=== PATIENT | female | born 1945 | race Caucasian/White ===

== ENCOUNTER 2017-07-18 03:09 | Inpatient (IN) | payer MEDICARE ==
[2017-07-18] VITALS (23 sets, daily range): BP systolic 125–222; BP diastolic 58–111; PULSE 57–73; RESP 12–16; TEMP 93.5–98.6; O2SAT 98–100
[~2017-07-18] VITALS: Ht 157.5 cm; Wt 40.3 kg
[2017-07-18] MEDS ORDERED: PROPOFOL 1000 MG/100 ML INJ 100 ML ONE (03:17)
[2017-07-18 04:11] LABS: AUTOMATED NEUTROPHIL # 6.7 TH/MM3 (1.8-7.7); BASOPHIL # 0.1 TH/MM3 (0-0.2); BASOPHIL % 1.3 % (0.0-2.0); EOSINOPHIL # 0.2 TH/MM3 (0-0.4); EOSINOPHIL % 2.1 % (0.0-4.0); HEMATOCRIT 29.6 % (35.0-46.0); LYMPH % 15.2 % (9.0-44.0); LYMPHOCYTE # 1.3 TH/MM3 (1.0-4.8); MEAN CELL VOLUME 92.2 FL (80.0-100.0); MEAN CORPUSCULAR HEMOGLOBIN 34.8 PG (27.0-34.0); NEUT % 75.4 % (16.0-70.0); PLATELET COUNT 314 TH/MM3 (150-450); RED BLOOD COUNT 3.22 MIL/MM3 (4.00-5.30); WHITE BLOOD COUNT 8.9 TH/MM3 (4.0-11.0)
[2017-07-18 04:20] LABS: APTT (PATIENT) 35.2 SEC (24.3-30.1); INTERNATIONAL NORMALIZED RATIO 1.7 RATIO; PROTHROMBIN TIME - PATIENT 19.4 SEC (9.8-11.6)
[2017-07-18] MEDS ORDERED: CEFEPIME INJ 2,000 MG in SODIUM CHLORIDE 0.9% INJ 100 ML IV ONE (04:45)
[2017-07-18] MEDS ORDERED: FUROSEMIDE 40 MG/4 ML VIAL IV PUSH ONE (04:45)
[2017-07-18] MEDS ORDERED: AZITHROMYCIN INJ 500 MG in SODIUM CHLOR 0.9% 250 ML INJ 250 ML IV ONE (04:45)
[2017-07-18 04:46] LABS: BLOOD GAS BASE EXCESS -8.5 mmol/L (-2-2); BLOOD GAS CARBOXYHEMOGLOBIN 0.8 % (0-4); BLOOD GAS HCO3 17 mmol/L (22-26); BLOOD GAS METHEMOGLOBIN 0.5 % (0-2); BLOOD GAS O2 HGB SATURATION 99 % (90-100); BLOOD GAS OXYGEN CONTENT 13.9 Vol % (12.0-20.0); BLOOD GAS PCO2 34 mmHg (38-42); BLOOD GAS PO2 385 mmHG (61-120); BLOOD GAS TOTAL HGB 9.3 G/DL (12.0-16.0); TEMP CORR TO 98.6
[2017-07-18 04:47] LABS: CRITICAL VALUE NO; OXYGEN DEVICE VENTILATOR; VENT SETTINGS PRVC
[2017-07-18 04:48] LABS: DRAW SITE RT RADIAL; FIO2 100 %; NUMBER OF ARTERIAL PUNCTURES 1; STAT YES; ULNAR PULSE PRESENT
--- NOTE | 2017-07-18 04:48 | PD ---
HPI Chief Complaint: Respiratory Distress Time Seen by Provider: 04:12 Travel History International Travel<30 days: No Contact w/Intl Traveler<30days: No Traveled to known affect area: No History of Present Illness HPI The patient is a unknown age elderly female who presents to the emergency department via EMS for shortness of breath. According EMS they received a call the patient was short of breath from her , they arrived the patient was 75% room air and was working to breathe. They stated they place the patient on oxygen which brought the patient up into the 80s, however, she started having increasing shortness of breath and the patient was subsequently intubated in the field by EMS. The patient was intubated using Ativan 4 mg intravenously and etomidate 14 mg intravenously. No further information is available from EMS , they did not bring her medication list and do not know the patient's past medical history. [facility] Past Medical History Medical History: Unable to Obtain Past Surgical History Surgical History: Unable to Obtain Social History Tobacco Use: No (unknown) Allergies-Medications (Allergen,Severity, Reaction): Coded Allergies: No Known Allergies (Unverified , 07/18/17) Reported Meds & Prescriptions Reported Meds & Active Scripts Active Reported Iron (Ferrous Sulfate) 18 Mg Tab 65 Mg PO DAILY Mirtazapine 30 Mg Tab 30 Mg PO HS Lopressor (Metoprolol Tartrate) 50 Mg Tab 50 Mg PO BID Lisinopril 5 Mg Tab 5 Mg PO DAILY Plaquenil (Hydroxychloroquine Sulfate) 200 Mg Tab 200 Mg PO DAILY Take with food Plavix (Clopidogrel Bisulfate) 75 Mg Tab 75 Mg PO DAILY Vitamin D3 (Cholecalciferol) 1,000 Unit Cap Unknown Dose PO DAILY Symbicort Inh (Budesonide/Formoterol Fumarate) 160-4.5 Mcg/Act Aero 1 Puff INH Q12HR Lipitor (Atorvastatin Calcium) 20 Mg Tab 20 Mg PO HS Coumadin (Warfarin) 5 Mg Tab 5 Mg PO DAILY Sertraline (Sertraline HCl) 50 Mg Tab 50 Mg PO DAILY Aspirin Children's (Aspirin) 81 Mg Chew 81 Mg PO DAILY Review of Systems ROS Limitations: Intubated Except as stated in HPI: all other systems reviewed are Neg (unable to obtain, intubated) Physical Exam Exam Limitations: Clinical Condition Narrative GENERAL: Approximately 70-80 year-old female who arrives intubated. SKIN: Focused skin assessment warm/dry. HEAD: Atraumatic. Normocephalic. EYES: Pupils equal and round. Pupils are 3 mm bilateral and reactive. ENT: No nasal bleeding or discharge. No visible teeth. Endotracheal tube in place. NECK: Trachea midline. No JVD. CARDIOVASCULAR: Regular rate and rhythm. No murmur appreciated. Heart rate in the 70s. RESPIRATORY: No accessory muscle use. Patient has bilateral breath sounds with Rales and a few scattered rhonchi via bag valve ventilation. GASTROINTESTINAL: Abdomen soft, small reducible umbilical hernia. MUSCULOSKELETAL: Scar over the left hip. Ulcer of the medial malleus of the right ankle. Abscess which is draining area of the medial aspect the proximal thigh. Ecchymosis noted over the left humerus. NEUROLOGICAL: GCS of 3, intubated. Back: Superficial sacral decubitus ulcer, stage I on the right buttock. PSYCHIATRIC: Unable to assess. Data Data Last Documented VS Vital Signs Date Time Temp Pulse Resp B/P (MAP) Pulse Ox O2 Delivery O2 Flow Rate FiO2 07/18/17 05:45 63 16 174/85 (114) 100 Ventilator 65 07/18/17 05:00 93.6 Orders Orders Propofol 1000 Mg/100 Ml Inj (Diprivan 10 (07/18/17 03:17) B-Type Natriuretic Peptide (07/18/17 03:30) Lactic Acid (07/18/17 03:30) Act Partial Throm Time (Ptt) (07/18/17 03:30) Prothrombin Time / Inr (Pt) (07/18/17 03:30) Creatine Kinase (Cpk) (07/18/17 03:30) Comprehensive Metabolic Panel (07/18/17 03:30) Troponin I (07/18/17 03:30) Complete Blood Count With Diff (07/18/17 03:30) Urinalysis - C+S If Indicated (07/18/17 03:30) Blood Culture (07/18/17 03:30) Blood Culture (07/18/17 03:30) Arterial Blood Gas (Abg) (07/18/17 03:47) Wound Culture And Gram Stain (07/18/17 04:12) Chest, Single Ap (07/18/17 ) Ct Brain W/O Iv Contrast(Rout) (07/18/17 ) Furosemide Inj (Lasix Inj) (07/18/17 04:45) Cefepime Inj (Maxipime Inj) (07/18/17 04:45) Azithromycin Inj (Zithromax Inj) (07/18/17 04:45) Urine Culture (07/18/17 03:30) Urinary Catheter Insert/Apply (07/18/17 04:59) Propofol 1000 Mg/100 Ml Inj (Diprivan 10 (07/18/17 05:00) ^ Infusion (07/18/17 04:59) RASS (07/18/17 04:59) Neurological Rass Scale RENETTA.Q2H (07/18/17 04:59) Admit Order (Ed Use Only) (07/18/17 05:55) Labs Laboratory Tests Test 07/18/17 03:30 07/18/17 03:47 07/18/17 05:25 White Blood Count 8.9 TH/MM3 Red Blood Count 3.22 MIL/MM3 Hemoglobin 11.2 GM/DL Hematocrit 29.6 % Mean Corpuscular Volume 92.2 FL Mean Corpuscular Hemoglobin 34.8 PG Mean Corpuscular Hemoglobin Concent 37.8 % Red Cell Distribution Width 15.0 % Platelet Count 314 TH/MM3 Mean Platelet Volume 7.4 FL Neutrophils (%) (Auto) 75.4 % Lymphocytes (%) (Auto) 15.2 % Monocytes (%) (Auto) 6.0 % Eosinophils (%) (Auto) 2.1 % Basophils (%) (Auto) 1.3 % Neutrophils # (Auto) 6.7 TH/MM3 Lymphocytes # (Auto) 1.3 TH/MM3 Monocytes # (Auto) 0.5 TH/MM3 Eosinophils # (Auto) 0.2 TH/MM3 Basophils # (Auto) 0.1 TH/MM3 CBC Comment AUTO DIFF Differential Comment AUTO DIFF CONFIRMED Rouleau PRESENT Prothrombin Time 19.4 SEC Prothromb Time International Ratio 1.7 RATIO Activated Partial Thromboplast Time 35.2 SEC Urine Color LIGHT-YELLOW Urine Turbidity CLEAR Urine pH 7.0 Urine Specific [place] 1.007 Urine Protein 100 mg/dL Urine Glucose (UA) NEG mg/dL Urine Ketones NEG mg/dL Urine Occult Blood SMALL Urine Nitrite NEG Urine Bilirubin NEG Urine Urobilinogen LESS THAN 2.0 MG/DL Urine Leukocyte Esterase SMALL Urine RBC 6 /hpf Urine WBC 9 /hpf Urine WBC Clumps RARE Urine Squamous Epithelial Cells <1 /hpf Urine Bacteria OCC /hpf Microscopic Urinalysis Comment CULTURE INDICATED Lactic Acid Level 1.7 mmol/L B-Type Natriuretic Peptide 1097 PG/ML Blood Gas Puncture Site RT RADIAL Blood Gas Patient Temperature 98.6 Blood Gas HCO3 17 mmol/L Blood Gas Base Excess -8.5 mmol/L Blood Gas Oxygen Saturation 99 % Arterial Blood pH 7.31 Arterial Blood Partial Pressure CO2 34 mmHg Arterial Blood Partial Pressure O2 385 mmHG Arterial Blood Oxygen Content 13.9 Vol % Arterial Blood Carboxyhemoglobin 0.8 % Arterial Blood Methemoglobin 0.5 % Blood Gas Hemoglobin 9.3 G/DL Oxygen Delivery Device VENTILATOR Blood Gas Ventilator Setting PRVC Blood Gas Inspired Oxygen 100 % Blood Urea Nitrogen 37 MG/DL Creatinine 1.38 MG/DL Random Glucose 94 MG/DL Total Protein 6.0 GM/DL Albumin 2.6 GM/DL Calcium Level 8.0 MG/DL Alkaline Phosphatase 136 U/L Aspartate Amino Transf (AST/SGOT) 34 U/L Alanine Aminotransferase (ALT/SGPT) 27 U/L Total Bilirubin 0.4 MG/DL Sodium Level 130 MEQ/L Potassium Level 4.1 MEQ/L Chloride Level 100 MEQ/L Carbon Dioxide Level 17.2 MEQ/L Anion Gap 13 MEQ/L Estimat Glomerular Filtration Rate 33 ML/MIN Total Creatine Kinase 49 U/L Troponin I 0.03 NG/ML [facility] Medical Decision Making Medical Screen Exam Complete: Yes Emergency Medical Condition: Yes Medical Record Reviewed: Yes Interpretation(s) Chest x-ray reveals cardiomegaly. Bilateral pulmonary infiltrates. CT of the brain reveals normal examination Last Impressions Head CT 07/18/17 0000 Signed Impressions: Service Date/Time: Tuesday, July 18, 2017 04:29 - CONCLUSION: Normal examination. Tha Shaw Jr., MD Chest X-Ray 07/18/17 0000 Signed Impressions: Service Date/Time: Tuesday, July 18, 2017 04:27 - CONCLUSION: 1. Cardiomegaly. 2. Bilateral pulmonary infiltrates. Tha Shaw Jr., MD Laboratory Tests Test 07/18/17 03:30 07/18/17 03:47 07/18/17 05:25 White Blood Count 8.9 TH/MM3 Red Blood Count 3.22 MIL/MM3 Hemoglobin 11.2 GM/DL Hematocrit 29.6 % Mean Corpuscular Volume 92.2 FL Mean Corpuscular Hemoglobin 34.8 PG Mean Corpuscular Hemoglobin Concent 37.8 % Red Cell Distribution Width 15.0 % Platelet Count 314 TH/MM3 Mean Platelet Volume 7.4 FL Neutrophils (%) (Auto) 75.4 % Lymphocytes (%) (Auto) 15.2 % Monocytes (%) (Auto) 6.0 % Eosinophils (%) (Auto) 2.1 % Basophils (%) (Auto) 1.3 % Neutrophils # (Auto) 6.7 TH/MM3 Lymphocytes # (Auto) 1.3 TH/MM3 Monocytes # (Auto) 0.5 TH/MM3 Eosinophils # (Auto) 0.2 TH/MM3 Basophils # (Auto) 0.1 TH/MM3 CBC Comment AUTO DIFF Differential Comment AUTO DIFF CONFIRMED Rouleau PRESENT Prothrombin Time 19.4 SEC Prothromb Time International Ratio 1.7 RATIO Activated Partial Thromboplast Time 35.2 SEC Urine Color LIGHT-YELLOW Urine Turbidity CLEAR Urine pH 7.0 Urine Specific [place] 1.007 Urine Protein 100 mg/dL Urine Glucose (UA) NEG mg/dL Urine Ketones NEG mg/dL Urine Occult Blood SMALL Urine Nitrite NEG Urine Bilirubin NEG Urine Urobilinogen LESS THAN 2.0 MG/DL Urine Leukocyte Esterase SMALL Urine RBC 6 /hpf Urine WBC 9 /hpf Urine WBC Clumps RARE Urine Squamous Epithelial Cells <1 /hpf Urine Bacteria OCC /hpf Microscopic Urinalysis Comment CULTURE INDICATED Lactic Acid Level 1.7 mmol/L B-Type Natriuretic Peptide 1097 PG/ML Blood Gas Puncture Site RT RADIAL Blood Gas Patient Temperature 98.6 Blood Gas HCO3 17 mmol/L Blood Gas Base Excess -8.5 mmol/L Blood Gas Oxygen Saturation 99 % Arterial Blood pH 7.31 Arterial Blood Partial Pressure CO2 34 mmHg Arterial Blood Partial Pressure O2 385 mmHG Arterial Blood Oxygen Content 13.9 Vol % Arterial Blood Carboxyhemoglobin 0.8 % Arterial Blood Methemoglobin 0.5 % Blood Gas Hemoglobin 9.3 G/DL Oxygen Delivery Device VENTILATOR Blood Gas Ventilator Setting PRVC Blood Gas Inspired Oxygen 100 % Blood Urea Nitrogen 37 MG/DL Creatinine 1.38 MG/DL Random Glucose 94 MG/DL Total Protein 6.0 GM/DL Albumin 2.6 GM/DL Calcium Level 8.0 MG/DL Alkaline Phosphatase 136 U/L Aspartate Amino Transf (AST/SGOT) 34 U/L Alanine Aminotransferase (ALT/SGPT) 27 U/L Total Bilirubin 0.4 MG/DL Sodium Level 130 MEQ/L Potassium Level 4.1 MEQ/L Chloride Level 100 MEQ/L Carbon Dioxide Level 17.2 MEQ/L Anion Gap 13 MEQ/L Estimat Glomerular Filtration Rate 33 ML/MIN Total Creatine Kinase 49 U/L Troponin I 0.03 NG/ML Differential Diagnosis Differential diagnosis includes congestive heart failure, flash pulmonary edema , pneumonia, pulmonary embolism, acute coronary syndrome, sepsis. Narrative Course The patient was intubated prior to arrival. Upon arrival the patient did have bilateral breath sounds via bag valve ventilation with Rales and rhonchi. The patient was immediately placed on propofol drip. IV was established, labs are drawn and sent, the patient was placed on cardiac telemetry monitoring and continuous pulse ox imaging monitoring. CT the brain was obtained. Chest x- ray was obtained. Chest x-ray reveals pulmonary edema versus bilateral infiltrates, therefore, the patient received Lasix 40 mg intravenously, cefepime 2 g intravenously, Zithromax 500 mg intravenously. Fischer catheter was placed. The patient was noted to be hypothermic with a temperature 90.5, therefore, a warmer was placed on the patient. CT the brain was obtained, was negative. The patient will be admitted to the intensive care unit. A call was placed to the maternal child nurse. Critical Care Narrative Aggregate critical care time was 40 minutes. Time to perform other separately billable procedures was not included in the critical care time. My time did not include minutes spent treating any other patients simultaneously or on activities that did not directly contribute to the patient's treatment. The services I provided to this patient were to treat and/or prevent clinically significant deterioration that could result in: Anoxia, hypoxia, aspiration, arrhythmia, sepsis, . I provided critical care services requiring my management, as noted below: Chart data review, documentation time, medication orders and management, vital sign assessments/reviewing monitor data, ordering and reviewing lab tests, ordering and interpreting/reviewing x-rays and diagnostic studies, care of the patient and discussion of the patient with the admitting physicians. Sepsis Criteria SIRS Criteria (2 or more): Temp > 100.9 or < 96.8 Physician Communication Physician Communication The on-call maternal child nurse was paged for admission. Diagnosis Primary Impression: Respiratory distress Additional Impression: Congestive heart failure Qualified Codes: I50.9 - Heart failure, unspecified Admitting Information Admitting Physician Requests: Admit Condition: Critical Mihai Falcon MD Jul 18, 2017 04:48
[2017-07-18 04:57] LABS: BACTERIA, URINE OCC /hpf; BLOOD, URINE SMALL (NEG); COMMENT (UR) CULTURE INDICATED; CULTURE IF INDICATED CULTURE INDICATED; GLUCOSE,URINE NEG (NEG); KETONE, URINE NEG (NEG); NITRITE,URINE NEG (NEG); SQUAMOUS EPITHELIAL CELL URINE <1 /hpf (0-5); URINE COLOR LIGHT-YELLOW (YELLW/STRAW)
--- NOTE | 2017-07-18 04:59 | RADRPT ---
EXAM DATE/TIME: 07/18/2017 04:29 [facility] COMPARISON: No previous studies available for comparison. INDICATIONS : Altered mental status. RADIATION DOSE: 29.67 CTDIvol (mGy) MEDICAL HISTORY : Non-responsive. SURGICAL HISTORY : Non-responsive. ENCOUNTER: Initial ACUITY: 1 day PAIN SCALE: Non-responsive LOCATION: cranial TECHNIQUE: Multiple contiguous axial images were obtained of the head. Using automated exposure control and adj ustment of the mA and/or kV according to patient size, radiation dose was kept as low as reasonably a chievable to obtain optimal diagnostic quality images. DICOM format image data is available electro nically for review and comparison. FINDINGS: CEREBRUM: The ventricles are normal for age. No evidence of midline shift, mass lesion, hemorrhage or acute in farction. No extra-axial fluid collections are seen. POSTERIOR FOSSA: The cerebellum and brainstem are intact. The 4th ventricle is midline. The cerebellopontine angle i s unremarkable. EXTRACRANIAL: The visualized portion of the orbits is intact. SKULL: The calvaria is intact. No evidence of skull fracture. CONCLUSION: Normal examination. Tha Shaw Jr., MD on July 18, 2017 at 4:57 Board Certified Radiologist. This report was verified electronically.
--- NOTE | 2017-07-18 05:00 | RADRPT ---
EXAM DATE/TIME: 07/18/2017 04:27 [facility] COMPARISON: No previous studies available for comparison. INDICATIONS : Pt found unresponsive MEDICAL HISTORY : Unobtainable SURGICAL HISTORY : Unobtainable ENCOUNTER: Initial ACUITY: 1 day PAIN SCORE: Non-responsive. LOCATION: Bilateral chest FINDINGS: A single portable frontal view of the chest shows an endotracheal tube tip 4 cm proximal to santiago. T ip of the nasogastric tube in the region of the body of the stomach. Bilateral pulmonary infiltrates most pronounced involving the right upper lobe. Lungs are hyperaerated. No effusions. Mild cardiomega ly. Bony structures are unremarkable. CONCLUSION: 1. Cardiomegaly. 2. Bilateral pulmonary infiltrates. Tha Shaw Jr., MD on July 18, 2017 at 4:58 Board Certified Radiologist. This report was verified electronically.
[2017-07-18 05:01] LABS: HEMO FLAGS AUTO DIFF; MEAN CORPUSCULAR HGB CONC 37.8 % (32.0-36.0)
[2017-07-18] MEDS: PROPOFOL 1000 MG/100 ML INJ 100 ML IV PRN ×3 (05:38→12:21)
[2017-07-18 05:45] LABS: ROULEAUX PRESENT (NORMAL); SCAN/DIFF AUTO DIFF CONFIRMED
[2017-07-18] MEDS ORDERED: VITA100036 PO (05:47)
[2017-07-18] MEDS ORDERED: PLAV75TA29 PO (05:47)
[2017-07-18] MEDS ORDERED: LISI-519 PO (05:47)
[2017-07-18] MEDS ORDERED: MIRT30TA PO (05:47)
[2017-07-18] MEDS ORDERED: COUM5TAB PO (05:47)
[2017-07-18] MEDS ORDERED: ASPI81CH7 PO (05:47)
[2017-07-18] MEDS ORDERED: SERT-132 PO (05:47)
[2017-07-18] MEDS ORDERED: METO-309 PO (05:47)
[2017-07-18] MEDS ORDERED: SYMB160A INH (05:47)
[2017-07-18] MEDS ORDERED: LIPI20TA PO (05:47)
[2017-07-18] MEDS ORDERED: IRON18TA PO (05:47)
[2017-07-18] MEDS ORDERED: PLAQ200T PO (05:47)
[2017-07-18 06:33] LABS: ALT (GPT) 27 U/L (10-53)
[2017-07-18 06:37] LABS: ALKALINE PHOSPHATASE 136 U/L (45-117); TOTAL BILIRUBIN ADULT 0.4 MG/DL (0.2-1.0)
[2017-07-18 06:41] LABS: ANION GAP 13 MEQ/L (5-15); AST (GOT) 34 U/L (15-37); BICARBONATE 17.2 MEQ/L (21.0-32.0); BLOOD UREA NITROGEN 37 MG/DL (7-18); CHLORIDE 100 MEQ/L (98-107); GLOMERULAR FILTRATION RATE 33 ML/MIN (>89); POTASSIUM 4.1 MEQ/L (3.5-5.1); SODIUM (NA) 130 MEQ/L (136-145)
[2017-07-18 06:46] LABS: CREATINE KINASE 49 U/L (26-192)
[2017-07-18] MEDS ORDERED: ONDANSETRON HCL 4 MG/2 ML VIAL IV PUSH PRN (07:00)
[2017-07-18] MEDS ORDERED: CHLORHEXIDINE GLUCONATE 2 % 1 PACK (2 CLOTHS) TOP PRN (07:00)
[2017-07-18] MEDS ORDERED: SENNOSIDES 8.6 MG TAB PO PRN (07:00)
[2017-07-18] MEDS ORDERED: RESP: ALBUTEROL 2.5 MG/3 ML NEB (PRN) INH (07:00)
[2017-07-18] MEDS ORDERED: MAGNESIUM HYDROXIDE SUSP 30 ML CUP PO PRN (07:00)
[2017-07-18] MEDS ORDERED: fentaNYL DRIP 250 ML IV PRN (07:00)
[2017-07-18] MEDS ORDERED: AZITHROMYCIN INJ 500 MG in SODIUM CHLOR 0.9% 250 ML INJ 250 ML IV SCH (07:00)
[2017-07-18] MEDS ORDERED: HEPARIN-D5W 25,000 U/250 ML 250 ML IV ONE (07:00)
[2017-07-18] MEDS ORDERED: CEFEPIME INJ 2,000 MG in SODIUM CHLORIDE 0.9% INJ 100 ML IV SCH (07:00)
[2017-07-18] MEDS ORDERED: LACTULOSE SYRUP 20 GM/30 ML CUP PO PRN (07:00)
[2017-07-18] MEDS ORDERED: GLUCAGON 1 MG/ML VIAL OTHER PRN (07:00)
[2017-07-18] MEDS ORDERED: INFO FOR PHARMACY/READ COMMENT ONE (07:00)
[2017-07-18] MEDS ORDERED: BISACODYL 10 MG SUPP RECTAL PRN (07:00)
[2017-07-18] MEDS ORDERED: MISCELLANEOUS NURSING INFORMATION XX SCH (07:00)
[2017-07-18] MEDS ORDERED: PROPOFOL 1000 MG/100 ML INJ 100 ML IV PRN (07:00)
[2017-07-18] MEDS ORDERED: DEXTROSE 50% IN WATER 50 ML VIAL(D50) IV PUSH PRN (07:00)
[2017-07-18] MEDS ORDERED: Vancomycin Consult Pharmacy 1 EA OTHER SCH (08:00)
[2017-07-18 08:16] LABS: AMYLASE 687 U/L (25-115)
[2017-07-18] MEDS: RESP: ALBUTEROL 2.5 MG/IPRATROPIUM 0.5 MG NEB (SCH) INH ×5 (08:16→23:49)
[2017-07-18] MEDS: RESP: BUDESONIDE 0.5 MG/2 ML NEB NEB SCH ×2 (08:16→20:41)
--- NOTE | 2017-07-18 08:17 | HHI.HP ---
[facility] Service Critical Care Medicine Primary Care Physician Unknown Admission Diagnosis respiratory distress, congestive heart failure, pneumonia Diagnosis: (1) Acute hypoxemic respiratory failure Diagnosis: Principal (2) Chronic anticoagulation Diagnosis: Secondary (3) Hyponatremia Diagnosis: Principal (4) Normocytic anemia Diagnosis: Principal (5) Wounds, multiple open, lower extremity Diagnosis: Principal (6) COPD (chronic obstructive pulmonary disease) Diagnosis: Principal (7) Pulmonary hypertension due to COPD Diagnosis: Principal (8) Coronary artery disease Diagnosis: Principal (9) Depression Diagnosis: Principal (10) Dyslipidemia Diagnosis: Secondary (11) Hypertension Diagnosis: Principal (12) Lupus Diagnosis: Principal (13) Lower leg DVT (deep venous thromboembolism), chronic Diagnosis: Principal (14) Nephrolithiasis Diagnosis: Secondary (15) Peripheral arterial occlusive disease Diagnosis: Secondary (16) Rheumatoid arthritis Diagnosis: Secondary (17) Hypothermia Diagnosis: Principal Chief Complaint: Awoke at 3 AM short of breath currently orotracheally intubated Travel History International Travel<30 Days: No Contact w/Intl Traveler <30 Da: No Traveled to Known Affected Are: No History of Present Illness This is a 72-year-old female. Name is Raúl Aguirre. Date of admission 07/18/2017. Past medical history includes coronary disease status post stent to the RCA 03/[address] Monique, chronic diastolic heart failure, pulmonary hypertension likely type III, ongoing tobaccoism with COPD, history of lower extremity DVTs, peripheral arterial disease status post stent to the iliac, nephrolithiasis, lupus, depression, chronic warfarin use rheumatoid arthritis, hypertension and dyslipidemia. She presents to [facility] with acute onset at 3 AM of shortness of breath. She had been "feeling tired" for the past several days. denies patient had any anginal type pain, shortness of breath, orthopnea or claudication. Upon EMS arrival, patient was emergently orally intubated using 7.5 ET tube. Of note, patient has chronic wounds to her right ankle retained hardware 15 years ago and a chronic wound on her right thigh from a dermatologic biopsy by organizational development specialist in [place] first [facility]. This was drained by ED physician and has been sent for cultures. No signs of necrotizing fasciitis or spreading erythema at this time Patient was noted be quite hypothermic on admission temperature 90.5. Warming device placed. Chest x-ray admission revealed bilateral infiltrates versus pulmonary edema. Patient received 40 mg IV furosemide and was given 2000 mg cefepime and 500 mg azithromycin along with bronchodilator therapy. CT brain revealed no acute intracranial findings. EEG has normalized. She is currently seen somewhat hypertensive in room E 33. She is arousable on the ventilator but currently not falling commands on a propofol drip. Review of Systems ROS Limitations: Intubated Past Family Social History Allergies: Coded Allergies: No Known Allergies (Unverified , 07/18/17) Past Medical History Pulmonary hypertension ? Type III Coronary artery disease Past Surgical History Right ankle Stent. presents car that states transhepatic biliary stent and iliac stent. RCA stent IVC filter Reported Medications Hydroxychloroquine 200 mg daily Nicotine patch 14 mg daily Warfarin 5 mg by mouth daily Clopidogrel 75 mg daily Aspirin 81 mg by mouth daily Atorvastatin 20 milligrams by mouth daily Metoprolol 50 mg by mouth twice a day Amlodipine 5 mg by mouth daily Lisinopril 5 mg by mouth daily Mirtazapine 30 mg at night Sertraline 50 mg by mouth daily Budesonide/formoterol 160/4.5 one puff twice a day Cholecalciferol 1000 units daily Active Ordered Medications Reviewed in EMR Family History Mother with heart disease. Father with cancer unknown type. Social History States she recently quit tobacco. 50 year pack history. Drinks 1 beer daily. No IV drug use or illicit drug use Physical Exam Vital Signs Vital Signs Date Time Temp Pulse Resp B/P (MAP) Pulse Ox O2 Delivery O2 Flow Rate FiO2 07/18/17 06:00 93.9 66 16 179/93 (121) 100 Ventilator 65 07/18/17 05:45 63 16 174/85 (114) 100 Ventilator 65 07/18/17 05:25 66 16 160/85 (110) 100 Ventilator 65 07/18/17 05:15 67 16 165/84 (111) 100 Ventilator 65 07/18/17 05:00 93.6 67 16 178/87 (117) 100 Ventilator 65 07/18/17 04:50 93.6 67 16 178/87 (117) 100 Ventilator 100 07/18/17 04:35 67 16 125/99 (108) 100 Ventilator 100 07/18/17 04:20 100 100 07/18/17 04:19 93.5 73 16 222/111 (148) 100 07/18/17 04:15 68 16 207/103 (137) 100 Ventilator 100 07/18/17 04:00 100 60 07/18/17 04:00 68 16 197/97 (130) 100 Ventilator 100 07/18/17 03:15 100 Ventilator 100 07/18/17 03:10 100 07/18/17 03:08 100 100 Physical Exam GENERAL: 72 year female, critically ill currently resting in bed in no acute distress SKIN: Warm and dry. Open sore 2 x 2 cm right medial aspect of ankle with minimal erythema. Pustule to the anterior aspect of the right medial thigh status post drainage by ED physician. No signs of streaking erythema. HEAD: Atraumatic. Normocephalic. EYES: Pupils equal and round around 3 mm bilaterally and reactive. No scleral icterus. No injection or drainage. ENT: No nasal bleeding or discharge. Mucous membranes pink and moist. Orotracheally intubated NECK: Trachea midline. No JVD. CARDIOVASCULAR: Regular rate and rhythm. S1, S2. No S4. Without murmur RESPIRATORY: Coarse crackles appreciated throughout all lung mendoza anterior- posterior. Positive end expiratory wheeze. Breath sounds equal bilaterally. GASTROINTESTINAL: Abdomen soft, non-tender, nondistended. Active bowel sounds are appreciated MUSCULOSKELETAL: Extremities without disc and peripheral edema. No obvious deformities. NEUROLOGICAL: Currently on sedation on the ventilator. Arousable. Does not follow commands. Withdraws to pain. Positive gag. Positive corneal reflex. Laboratory Laboratory Tests Test 07/18/17 03:30 07/18/17 03:47 07/18/17 05:25 White Blood Count 8.9 Red Blood Count 3.22 Hemoglobin 11.2 Hematocrit 29.6 Mean Corpuscular Volume 92.2 Mean Corpuscular Hemoglobin 34.8 Mean Corpuscular Hemoglobin Concent 37.8 Red Cell Distribution Width 15.0 Platelet Count 314 Mean Platelet Volume 7.4 Neutrophils (%) (Auto) 75.4 Lymphocytes (%) (Auto) 15.2 Monocytes (%) (Auto) 6.0 Eosinophils (%) (Auto) 2.1 Basophils (%) (Auto) 1.3 Neutrophils # (Auto) 6.7 Lymphocytes # (Auto) 1.3 Monocytes # (Auto) 0.5 Eosinophils # (Auto) 0.2 Basophils # (Auto) 0.1 CBC Comment AUTO DIFF Differential Comment AUTO DIFF CONFIRMED Rouleau PRESENT Prothrombin Time 19.4 Prothromb Time International Ratio 1.7 Activated Partial Thromboplast Time 35.2 Urine Color LIGHT-YELLOW Urine Turbidity CLEAR Urine pH 7.0 Urine Specific Walker 1.007 Urine Protein 100 Urine Glucose (UA) NEG Urine Ketones NEG Urine Occult Blood SMALL Urine Nitrite NEG Urine Bilirubin NEG Urine Urobilinogen LESS THAN 2.0 Urine Leukocyte Esterase SMALL Urine RBC 6 Urine WBC 9 Urine WBC Clumps RARE Urine Squamous Epithelial Cells <1 Urine Bacteria OCC Microscopic Urinalysis Comment CULTURE INDICATED Lactic Acid Level 1.7 B-Type Natriuretic Peptide 1097 Blood Gas Puncture Site RT RADIAL Blood Gas Patient Temperature 98.6 Blood Gas HCO3 17 Blood Gas Base Excess -8.5 Blood Gas Oxygen Saturation 99 Arterial Blood pH 7.31 Arterial Blood Partial Pressure CO2 34 Arterial Blood Partial Pressure O2 385 Arterial Blood Oxygen Content 13.9 Arterial Blood Carboxyhemoglobin 0.8 Arterial Blood Methemoglobin 0.5 Blood Gas Hemoglobin 9.3 Oxygen Delivery Device VENTILATOR Blood Gas Ventilator Setting PRVC Blood Gas Inspired Oxygen 100 Blood Urea Nitrogen 37 Creatinine 1.38 Random Glucose 94 Total Protein 6.0 Albumin 2.6 Calcium Level 8.0 Alkaline Phosphatase 136 Aspartate Amino Transf (AST/SGOT) 34 Alanine Aminotransferase (ALT/SGPT) 27 Total Bilirubin 0.4 Sodium Level 130 Potassium Level 4.1 Chloride Level 100 Carbon Dioxide Level 17.2 Anion Gap 13 Estimat Glomerular Filtration Rate 33 Total Creatine Kinase 49 Troponin I 0.03 Date/Time Source Procedure Growth Status 07/18/17 03:30 Blood Peripheral Aerobic Blood Culture Pending Received 07/18/17 03:30 Blood Peripheral Anaerobic Blood Culture Pending Received 07/18/17 03:30 Urine Clean Catch Urine Culture Pending Received 07/18/17 03:30 Wound Leg Gram Stain Pending Received 07/18/17 03:30 Wound Leg Wound Culture Pending Received Result Diagram: 07/18/17 0330 07/18/17 0525 Imaging Chest x-ray - bilateral interstitial infiltrates versus edema. ET tube about [address] brain - no acute intracranial findings Caprini VTE Risk Assessment Caprini VTE Risk Assessment: Mod/High Risk (score >= 2) Caprini Risk Assessment Model Point Value = 1 Point Value = 2 Point Value = 3 Point Value = 5 Age 41-60 Minor surgery BMI > 25 kg/m2 Swollen legs Varicose veins or History of unexplained or recurrent spontaneous Oral contraceptives or hormone replacement Sepsis (< 1 month) Serious lung disease, including pneumonia (< 1 month) Abnormal pulmonary function Acute myocardial infarction Congestive heart failure (< 1 month) History of inflammatory bowel disease Medical patient at bed rest Age 61-74 Arthroscopic surgery Major open surgery (> 45 min) Laparoscopic surgery (> 45 min) Malignancy Confined to bed (> 72 hours) Immobilizing plaster cast Central venous access Age >= 75 History of VTE Family history of VTE Factor V Leiden Prothrombin [id number] Lupus anticoagulant Anticardiolipin antibodies Elevated serum homocysteine Heparin-induced thrombocytopenia Other congenital or acquired thrombophilia Stroke (< 1 month) Elective arthroplasty Hip, pelvis, or leg fracture Acute spinal cord injury (< 1 month) Prophylaxis Regimen Total Risk Factor Score Risk Level Prophylaxis Regimen 0-1 Low Early ambulation 2 Moderate Order ONE of the following: *Sequential Compression Device (SCD) *Heparin 5000 units SQ BID 3-4 Higher Order ONE of the following medications: *Heparin 5000 units SQ TID *Enoxaparin/Lovenox 40 mg SQ daily (WT < 150 kg, CrCl > 30 mL/min) *Enoxaparin/Lovenox 30 mg SQ daily (WT < 150 kg, CrCl > 10-29 mL/min) *Enoxaparin/Lovenox 30 mg SQ BID (WT < 150 kg, CrCl > 30 mL/min) AND/OR *Sequential Compression Device (SCD) 5 or more Highest Order ONE of the following medications: *Heparin 5000 units SQ TID (Preferred with Epidurals) *Enoxaparin/Lovenox 40 mg SQ daily (WT < 150 kg, CrCl > 30 mL/min) *Enoxaparin/Lovenox 30 mg SQ daily (WT < 150 kg, CrCl > 10-29 mL/min) *Enoxaparin/Lovenox 30 mg SQ BID (WT < 150 kg, CrCl > 30 mL/min) AND *Sequential Compression Device (SCD) Assessment and Plan Assessment and Plan Neuro/Psych: History depression Acute delirium/altered mental status likely secondary to hypoxia Patient is currently on propofol/fentanyl drips for sedation/analgesia while intubated Goal of RA SS -2 Daily sedation vacation Acetaminophen 650 mg every 6 hours when necessary for fever CT brain 07/18 revealed no acute intracranial findings Resume sertraline 50 mg daily and mirtazapine 30 mg at night for depression CV: Coronary artery disease status post stent RCA 03/27 Dr. Monique Peripheral arterial disease status post lower extremity stenting Hypertension Dyslipidemia Pulmonary hypertension likely type III Hypothermia EKG and admission revealed normal sinus rhythm 80. IVCD with a QRS [address] elevation. Troponin 0.03. 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 No regional wall motion abnormality Resume metoprolol 50 mg twice a day for hypertension Holding amlodipine 5 mill grams daily and lisinopril 5 mill grams daily. Resume when clinically indicated Resume atorvastatin 20 no grams daily for dyslipidemia Resuming aspirin 81 mg daily and clopidogrel 75 mg daily for stent See ID, TSH, Cortisol for hypothermia w/u Resp: Acute hypoxic respiratory failure 50 year tobacco history PRVC /10/15/49 Ventilator bundle Albuterol/ipratropium aerosols every 4 hours with albuterol aerosols every 2 hours. Dyspnea Budesonide aerosols 0.5/2 1 inhalation twice a day Spontaneous breathing trials daily GI: Patient is currently nothing by mouth NGT to LIWS Lansoprazole for GI prophylaxis Docusate sodium/senna 1 tablet twice a day for bowel regimen : Fischer catheter has been placed for accurate I's and O's in a critically ill patient receiving diuretics Rheum/Endo: History of RA Lupus? Resume hydroxychloroquine 200 mg daily for her underlying rheumatologic disorder Currently on sliding scale insulin with Novulin R moderate protocol with Accu- Cheks every 6 hours to maintain euglycemia TSH pending Renal: Acute kidney injury History of nephrolithiasis Creatinine currently 1.3. Monitor urine output Accurate I's and O's Avoid nephrotoxic drugs Recheck BMP in a.m. Heme: Normocytic anemia Chronic warfarin use History of DVTs bilateral lower extremities Resume warfarin at 5 mill grams daily. While subtherapeutic initiate heparin drip until INR greater than 2.0 Resume aspirin/clopidogrel Daily CBC/INRs ID: UTI Receive 1 dose of cefepime/azithromycin in ED. Noted allergy to cephalosporins and previous records We'll start on levofloxacin, vancomycin, aztreonam. Blood cultures 2, sputum, UA, urine Legionella and pneumococcal antigens and influenza all pending Follow-up on wound culture to right thigh. MSK: Lower extremity wound ulcers/chronic Right thigh abscess was drained by ED. Benign-appearing currently. Wound care evaluate and treat FEN: Hyponatremia Replace electrolytes as clinically indicated. Magnesium and phosphorus currently pending Recheck BMP in a.m. Access - Utilize peripheral IV. Central line if indicated Prophylaxis - GI - lansoprazole - DVT - heparin drip/warfarin until INR greater than 2.0 provide DVT prophylaxis Critical Care: The total critical care time was 40 minutes. Time to perform other separately billable procedures was not included in the critical care time. Code Status Full code Discussed Condition With , who is hard of hearing and requested medications be reviewed for possible parring down and daughter. Dr. Falcon/ed physician. Care plan discussed and all questions answered. Problem Qualifiers (1) Wounds, multiple open, lower extremity: Qualified Codes: S81.801D - Unspecified open wound, right lower leg, subsequent encounter (2) COPD (chronic obstructive pulmonary disease): Qualified Codes: J44.9 - Chronic obstructive pulmonary disease, unspecified (3) Coronary artery disease: Qualified Codes: I25.10 - Atherosclerotic heart disease of [place] coronary artery without angina pectoris (4) Depression: Qualified Codes: F32.9 - Major depressive disorder, single episode, unspecified (5) Hypertension: Qualified Codes: I10 - Essential (primary) hypertension (6) Lupus: Qualified Codes: L93.0 - Discoid lupus erythematosus (7) Lower leg DVT (deep venous thromboembolism), chronic: Qualified Codes: I82.5Z9 - Chronic embolism and thrombosis of unspecified deep veins of unspecified distal lower extremity (8) Hypothermia: Qualified Codes: T68.XXXA - Hypothermia, initial encounter Layton Blunt MD Jul 18, 2017 07:24
[2017-07-18] MEDS: ARTIFICIAL TEARS OPTH SOLN 15 ML BTL EACH EYE SCH ×3 (09:00→20:48)
[2017-07-18] MEDS: AZTREONAM INJ 2,000 MG in SODIUM CHLORIDE 0.9% INJ 100 ML IV SCH ×2 (09:00→16:13)
[2017-07-18] MEDS ORDERED: VANCOMYCIN 1,000 MG/NS 250 ML IV ONE ×2 (10:15)
[2017-07-18] MEDS: SODIUM CHLOR 0.9% 1000 ML INJ 1,000 ML IV SCH (10:38)
[2017-07-18] MEDS: CHLORHEXIDINE 0.12% (ORAL KIT) 15 ML CUP MT SCH ×2 (10:39→20:47)
[2017-07-18] MEDS: METOPROLOL TARTRATE 50 MG TAB PO SCH ×2 (10:42→13:39)
[2017-07-18] MEDS: SODIUM CHLORIDE 0.9% FLUSH 10 ML FLUSH IV FLUSH SCH ×2 (10:42→20:48)
[2017-07-18] MEDS: FERROUS SULFATE 325 MG (65 MG ELEMENTAL IRON) TAB PO SCH (10:43)
[2017-07-18] MEDS: ATORVASTATIN 20 MG TAB PO SCH (10:43)
[2017-07-18] MEDS: SERTRALINE HCL 50 MG TAB PO SCH (10:43)
[2017-07-18] MEDS: LANSOPRAZOLE SOLUTAB 30 MG TAB G-TUBE SCH (10:43)
[2017-07-18] MEDS: DOCUSATE SODIUM 50 MG/SENNA 8.6 MG TAB PO SCH ×2 (10:44→20:48)
[2017-07-18] MEDS: ASPIRIN 81 MG CHEW TAB CHEW SCH (10:44)
[2017-07-18] MEDS: CLOPIDOGREL 75 MG TAB PO SCH (10:44)
[2017-07-18] MEDS: HYDROXYCHLOROQUINE SULFATE 200 MG TAB PO SCH (10:44)
[2017-07-18] MEDS: LEVOFLOXACIN 750 MG PREMIX INJ 150 ML IV SCH (11:47)
[2017-07-18] MEDS: INSULIN NovoLIN REGULAR SUPPLEMENTAL SCALE SQ SCH ×2 (12:00→18:00)
--- NOTE | 2017-07-18 12:59 | EKG ---
Date Performed: 07/18/2017 Time Performed: 03:17:33 PTAGE: 89 years EKG: Sinus rhythm MARKED LEFT AXIS DEVIATION INTRAVENTRICULAR CONDUCTION DELAY ABNORMAL ECG INTERPRETATION BASED ON A DEFAULT AGE OF 40 YEARS NO PREVIOUS TRACING DOCTOR: Сергей Malloy Interpretating Date/Time 07/18/2017 12:56:40
[2017-07-18] MEDS ORDERED: ACETAMINOPHEN 650 MG/20.3 ML UDC PO PRN (13:30)
[2017-07-18] MEDS: methylPREDNISolone SOD SUCC 40 MG/1 ML VIAL IV PUSH SCH ×2 (13:45→20:48)
[2017-07-18 14:15] LABS: APTT (PATIENT) 100.1 SEC (24.3-30.1)
[2017-07-18] MEDS ORDERED: LABETALOL HCL 100 MG/20 ML VIAL IV PUSH PRN (14:15)
[2017-07-18] MEDS ORDERED: amLODIPine BESYLATE 5 MG TAB PO ONE (14:15)
[2017-07-18] MEDS ORDERED: NITROGLYCERIN 2% OINT 1 GM PACKET TOPICAL PRN (14:15)
[2017-07-18] MEDS: hydrALAZINE HCL 20 MG/ML VIAL IV PUSH PRN (14:18)
[2017-07-18] MEDS: WARFARIN SOD 5 MG TAB PO SCH (16:12)
[2017-07-18 19:23] LABS: APTT (PATIENT) 58.4 SEC (24.3-30.1)
--- NOTE | 2017-07-18 20:01 | RADRPT ---
EXAM DATE/TIME: 07/18/2017 17:05 [facility] COMPARISON: No previous studies available for comparison. INDICATIONS : Increased labs. MEDICAL HISTORY : Hypertension. Deep venous thrombosis. Rheumatoid arthritis. Lupus. Depression. Hyperlipidemia. SURGICAL HISTORY : Heart catheterization. Bilateral cataracts. Bilateral femur surgery. Parathyroid surgery. ENCOUNTER: Initial ACUITY: 1 day PAIN SCORE: Nonresponsive. LOCATION: Abdomen. MEASUREMENTS: LIVER: 16.7 cm length COMMON DUCT: 8 mm RIGHT KIDNEY: 8.6 x 4.7 x 3.6 cm LEFT KIDNEY: 8.6 x 3.5 x 4.7 cm SPLEEN: 8.3 cm length AORTA: 1.7cm maximal FINDINGS: LIVER: Prominence of the portal triads which appear echogenic with mild coarsening of hepatic echotexture he patomegaly can be seen with hepatitis. COMMON DUCT: Dilated up to 8.4 mm. with a 7 mm choledocholithiasis in the distal common bile duct. GALLBLADDER: Numerous gallstones are seen. There is no wall thickening or pericholecystic fluid. PANCREAS: Findings suggest proximal pancreatic cysts as well as a 1 cm shadowing focus proximally having the ap pearance of the calcification. This may also be related to ductal dilatation and choledocholithiasis. RIGHT KIDNEY: The kidneys are echogenic. A few subcentimeter cysts are present in the right kidney, simple in appea vane. LEFT KIDNEY: Left kidney is also echogenic. A few cysts are noted including a 1.8 cm simple cyst at the mid pole. SPLEEN: No focal lesion. AORTA: Non aneurysmal. IVC: An IVC filter is identified. CONCLUSION: 1. Echogenic kidneys noted bilaterally with bilateral cysts. 2. Dilated common bile duct and choledocholith.. 3. Cholelithiasis. 4. The proximal pancreas is not well-visualized with areas suggesting pancreatic cysts and calcificat ions. 5. Small left pleural effusion. 6. Heterogeneous liver suggesting underlying hepatitis. Reno Ortez MD on July 18, 2017 at 19:53 Board Certified Radiologist. This report was verified electronically.
[2017-07-18] MEDS ORDERED: DIATRIZOATE MEGLUM/DIATRIZOATE SOD 9 ML CUP PO ONE (20:30)
[2017-07-18] MEDS: MIRTAZAPINE 15 MG TAB PO SCH (20:48)
[2017-07-18 21:33] LABS: MAGNESIUM 1.9 MG/DL (1.5-2.5)
[2017-07-19] VITALS (15 sets, daily range): BP systolic 103–140; BP diastolic 54–65; PULSE 62–109; RESP 16–17; TEMP 98–98.2; O2SAT 95–100
[2017-07-19] MEDS: AZTREONAM INJ 2,000 MG in SODIUM CHLORIDE 0.9% INJ 100 ML IV SCH ×3 (01:15→16:34)
[2017-07-19] MEDS: RESP: ALBUTEROL 2.5 MG/IPRATROPIUM 0.5 MG NEB (SCH) INH ×5 (03:56→19:26)
[2017-07-19] MEDS: SODIUM CHLOR 0.9% 1000 ML INJ 1,000 ML IV SCH ×2 (04:00→18:17)
[2017-07-19] MEDS: CHLORHEXIDINE GLUCONATE 2 % 1 PACK (2 CLOTHS) TOP SCH (04:00)
[2017-07-19] MEDS: INSULIN NovoLIN REGULAR SUPPLEMENTAL SCALE SQ SCH ×4 (05:12→18:00)
[2017-07-19] MEDS: methylPREDNISolone SOD SUCC 40 MG/1 ML VIAL IV PUSH SCH ×3 (05:13→21:27)
[2017-07-19 05:33] LABS: APTT (PATIENT) 63.6 SEC (24.3-30.1); INTERNATIONAL NORMALIZED RATIO 2.5 RATIO; PROTHROMBIN TIME - PATIENT 28.6 SEC (9.8-11.6)
[2017-07-19 05:50] LABS: ALT (GPT) 24 U/L (10-53); ANION GAP 12 MEQ/L (5-15); AST (GOT) 26 U/L (15-37); BICARBONATE 16.9 MEQ/L (21.0-32.0); BLOOD UREA NITROGEN 42 MG/DL (7-18); CHLORIDE 103 MEQ/L (98-107); GLOMERULAR FILTRATION RATE 35 ML/MIN (>89); MAGNESIUM 1.9 MG/DL (1.5-2.5); POTASSIUM 4.7 MEQ/L (3.5-5.1); SODIUM (NA) 132 MEQ/L (136-145)
[2017-07-19 05:54] LABS: ALKALINE PHOSPHATASE 131 U/L (45-117); TOTAL BILIRUBIN ADULT 0.2 MG/DL (0.2-1.0)
[2017-07-19 05:58] LABS: AMYLASE 298 U/L (25-115)
[2017-07-19] MEDS: RESP: BUDESONIDE 0.5 MG/2 ML NEB NEB SCH ×2 (07:48→19:26)
[2017-07-19] MEDS: ATORVASTATIN 20 MG TAB PO SCH (09:54)
[2017-07-19] MEDS: LEVOFLOXACIN 750 MG PREMIX INJ 150 ML IV SCH (09:54)
[2017-07-19] MEDS: FERROUS SULFATE 325 MG (65 MG ELEMENTAL IRON) TAB PO SCH (09:55)
[2017-07-19] MEDS: METOPROLOL TARTRATE 50 MG TAB PO SCH ×2 (09:55→21:27)
[2017-07-19] MEDS: CLOPIDOGREL 75 MG TAB PO SCH (09:55)
[2017-07-19] MEDS: LANSOPRAZOLE SOLUTAB 30 MG TAB G-TUBE SCH (09:55)
[2017-07-19] MEDS: HYDROXYCHLOROQUINE SULFATE 200 MG TAB PO SCH (09:55)
[2017-07-19] MEDS: CHLORHEXIDINE 0.12% (ORAL KIT) 15 ML CUP MT SCH ×2 (09:56→20:00)
[2017-07-19] MEDS: amLODIPine BESYLATE 5 MG TAB PO SCH (09:56)
[2017-07-19] MEDS: SERTRALINE HCL 50 MG TAB PO SCH (09:56)
[2017-07-19] MEDS: DOCUSATE SODIUM 50 MG/SENNA 8.6 MG TAB PO SCH ×2 (09:56→21:27)
[2017-07-19] MEDS: ARTIFICIAL TEARS OPTH SOLN 15 ML BTL EACH EYE SCH ×3 (09:56→16:34)
[2017-07-19] MEDS: ASPIRIN 81 MG CHEW TAB CHEW SCH (09:56)
[2017-07-19] MEDS: SODIUM CHLORIDE 0.9% FLUSH 10 ML FLUSH IV FLUSH SCH ×2 (09:57→21:00)
--- NOTE | 2017-07-19 11:39 | PD.WCN.NOT ---
Wound Consult Description: Received consult for Pressure ulcer to R medial ankle and R thigh from Doctor Blunt Communicated with: MARIAM Perez 5th floor C and spoke with Doctor Fortunato regarding wound care orders Recommendation: 1.Please cleanse wound to R medial ankle with normal saline only and apply santyl ointment mekhi thickness over wound bed. Cover with slightly moistened gauze 2 x2 pad just over wound bed. Secure dressing with dry gauze pads, rolled gauze and tape. Change dressing daily. 2.Cleanse R thigh wound with normal saline and pat dry before applying Optifoam gentle AG.Change every other day or PRN if saturated or dislodged. 3. Recommend ultrasound of R thigh for induration and erythema, indicating possible abscess. Additional Information: Patient seen [place] 5th [facility] for evaluation of possible pressure ulcer to R medial ankle and R thigh. Removed 4x4 gauze pads from R medial ankle to reveal wound that measures 2cm x 1.8cmx slough. Wound margins are round and steep and has a punched out appearance. Bilateral legs present with dusky colored, tight, shiny skin, indicating an arterial etiology. Wound bed presents with ~20% dark red dry tissue and ~80% yellow dry slough.Wound has scant thin yellow drainage that is without odor Periwound presents with hyperkeratotic tissue from 6 to 8 o 'clock and slight erythema from 9 to 5 o'clock that is blanchable. Cleansed wound with normal saline and patted dry before applying dry gauze pad over wound bed and secured with rolled gauze and tape. Removed gauze pads in place to R medial thigh to reveal wound that measures ~ 1.5x ~1.5 x ~<0.1cm. Wound bed is elevated above skin surface and is fluctuant. Periwound presents with induration from 6 to 2 o'clock and slight erythema that is circumferential, extending out ~0.5cm from wound bed. Wound bed presents with ~80% red tissue, and 20% yellow tissue. Wound drainage is minimal and sero- sanguinous without odor. Scant sanguinous drainage is expressed from wound bed that is also without foul odor. Cleansed wound with normal saline and applied dry 4x4 gauze pad and paper tape. Recommending R medial thigh ultrasound due to possible abscess. Brittnee Hollis CRN Jul 19, 2017 11:39
--- NOTE | 2017-07-19 12:39 | RADRPT ---
EXAM DATE/TIME: 07/19/2017 12:04 [facility] COMPARISON: No previous studies available for comparison. INDICATIONS : Right upper thigh wound. MEDICAL HISTORY : Hypertension. Myocardial infarction. DVT. Lupus. SURGICAL HISTORY : Cardiac stent. Leg surgery. ENCOUNTER: Initial ACUITY: 1 day PAIN SCORE: Nonresponsive. LOCATION: Right upper thigh. AREA EVALUATED: 5.9 x 4.8 x 1.5 cm right upper inner thigh. FINDINGS: There is induration in the upper thigh with 3 tracts extending down to the muscle. There is an irreg ular shaped echogenic fluid collection present. CONCLUSION: Abnormal thigh. MRI or CT with contrast would be of benefit for further evaluation. Abscess is suspected. Neftaly Esquivel MD FACR on July 19, 2017 at 12:36 Board Certified Radiologist. This report was verified electronically.
--- NOTE | 2017-07-19 13:01 | ECHRPT ---
Indication: EF CHF CONCLUSIONS BP: 105 / 55 HR: 77 Rhythm: MEASUREMENTS (Male / Female) Normal Values Technical Quality: 2D ECHO LV Diastolic Diameter PLAX 4.8 cm 4.2 - 5.9 / 3.9 - 5.3 cm LV Systolic Diameter PLAX 3.6 cm IVS Diastolic Thickness 1.2 cm 0.6 - 1.0 / 0.6 - 0.9 cm LVPW Diastolic Thickness 1.0 cm 0.6 - 1.0 / 0.6 - 0.9 cm LV Relative Wall Thickness 0.4 RV Internal Dim ED PLAX 1.5 cm DOPPLER AV Peak Velocity 201.5 cm/s AV Peak Gradient 16.2 mmHg AV Mean Gradient 7.0 mmHg AV Velocity Time Integral 47.9 cm LVOT Peak Velocity 97.0 cm/s LVOT Peak Gradient 3.8 mmHg LVOT Velocity Time Integral 27.3 cm Mitral E Point Velocity 81.4 cm/s Mitral A Point Velocity 88.8 cm/s Mitral E to A Ratio 0.9 TR Peak Velocity 328.0 cm/s TR Peak Gradient 43.0 mmHg Right Atrial Pressure 10.0 mmHg Pulmonary Artery Systolic Pressu 53.0 mmHg Right Ventricular Systolic Press 53.0 mmHg FINDINGS LEFT VENTRICLE Normal left ventricular size. Wall thickness is normal. The left ventricular systolic function is normal with an estimated ejection fraction in the range of 55-60%. RIGHT VENTRICLE Normal right ventricular size and systolic function. LEFT ATRIUM The left atrial size is mildly dilated. RIGHT ATRIUM The right atrial size is normal. ATRIAL SEPTUM Normal atrial septal thickness without atrial level shunting by limited color doppler interrogation. AORTA The aortic root and proximal ascending aorta are normal in size on limited imaging. MITRAL VALVE Mitral annular calcification is present. Mild thickening of the mitral valve leaflets. Mild mitral valve regurgitation. No mitral valve stenosis. AORTIC VALVE Aortic valve sclerosis is present. Moderate thickening of the aortic valve leaflets. Mild aortic valve regurgitation. TRICUSPID VALVE There is mild tricuspid valve regurgitation. The estimated pulmonary arterial pressure is 53 mmHg. PULMONARY VALVE No pulmonary valve regurgitation or stenosis. VESSELS The inferior vena cava is normal in size. PERICARDIUM No pericardial effusion. Laurent Solo MD, FACC (Electronically Signed) Final Date:19 July 2017 13:01
--- NOTE | 2017-07-19 13:31 | RADRPT ---
EXAM DATE/TIME: 07/19/2017 12:56 [place] COMPARISON: No previous studies available for comparison. INDICATIONS : Elevated lipase ORAL CONTRAST: Prescribed oral contrast ingested. RADIATION DOSE: 4.50 CTDIvol (mGy) MEDICAL HISTORY : Cardiovascular disease. Deep venous thrombosis. SURGICAL HISTORY : None. ENCOUNTER: Initial ACUITY: 1 day PAIN SCALE: Non-responsive LOCATION: abdomen TECHNIQUE: Volumetric scanning of the abdomen and pelvis was performed. Using automated exposure control and ad justment of the mA and/or kV according to patient size, radiation dose was kept as low as reasonably achievable to obtain optimal diagnostic quality images. DICOM format image data is available electro nically for review and comparison. FINDINGS: LOWER LUNGS: Small bilateral pleural effusions with associated compressive atelectasis at the lung bases. LIVER: Diffusely homogeneous density with mild central intrahepatic ductal dilatation. Gallbladder is disten ded and contains several calcified gallstones. Distal CBD stone noted on ultrasound exam today is not definitively visualized although there are calcifications in the pancreatic head. SPLEEN: Normal size without lesion. PANCREAS: Several coarse calcifications in the pancreatic head consistent with prior pancreatitis. Possible espinal creatic cysts demonstrated on ultrasound are not definitely demonstrated although region of low densi ty near the pancreatic head likely corresponds to dilated common bile duct. KIDNEYS: Diffuse medullary calcifications bilaterally consistent with renal medullary nephrocalcinosis. No sig nificant hydronephrosis. ADRENAL GLANDS: Within normal limits. VASCULAR: Diffuse atherosclerotic calcifications of the infrarenal aorta and proximal iliac arteries without an eurysm. There is an IVC filter in place. BOWEL/MESENTERY: Bowel appears grossly unremarkable without evidence for obstruction. There is an NG tube in the stoma ch. No significant free air or definite focal drainable fluid collection. ABDOMINAL WALL: Within normal limits. RETROPERITONEUM: There is no lymphadenopathy. BLADDER: Decompressed secondary to Fischer catheter. REPRODUCTIVE: Within normal limits. INGUINAL: There is no lymphadenopathy or hernia. MUSCULOSKELETAL: Healed pubic rami fractures. Bilateral intramedullary femoral rods. No definite focal abnormal lytic or blastic bony lesions. CONCLUSION: 1. Small bilateral pleural effusions with associated atelectasis at the lung bases. 2. Distended gallbladder containing calcified gallstones with prominent common bile duct and mild wilfredo tral intrahepatic ductal dilatation. Distal CBD stone noted on ultrasound exam earlier today is not d efinitively visualized although the findings are concerning for at least partial distal CBD obstructi on. 3. Coarse calcifications in the pancreatic head consistent with prior pancreatitis. Possible pancreat ic cysts demonstrated on ultrasound are not definitively demonstrated although region of low density near the pancreatic head likely corresponds to dilated common bile duct. Overall evaluation is limite d due to lack of IV contrast. 4. Findings consistent with medullary nephrocalcinosis. Lobo Kessler MD on July 19, 2017 at 13:08 Board Certified Radiologist. This report was verified electronically.
[2017-07-19] MEDS: WARFARIN SOD 5 MG TAB PO SCH (14:35)
--- NOTE | 2017-07-19 15:22 | HHI.CCPN ---
Subjective Remarks/Hospital Course This is a 72-year-old female. Name is Raúl Aguirre. Date of admission 07/18/2017. Past medical history includes coronary disease status post stent to the RCA 03/[address] Monique, chronic diastolic heart failure, pulmonary hypertension likely type III, ongoing tobaccoism with COPD, history of lower extremity DVTs, peripheral arterial disease status post stent to the iliac, nephrolithiasis, lupus, depression, chronic warfarin use rheumatoid arthritis, hypertension and dyslipidemia. She presents to [facility] with acute onset at 3 AM of shortness of breath. She had been "feeling tired" for the past several days. denies patient had any anginal type pain, shortness of breath, orthopnea or claudication. Upon EMS arrival, patient was emergently orally intubated using 7.5 ET tube. Of note, patient has chronic wounds to her right ankle retained hardware 15 years ago and a chronic wound on her right thigh from a dermatologic biopsy by camera repairman in [facility]. This was drained by ED physician and has been sent for cultures. No signs of necrotizing fasciitis or spreading erythema at this time Patient was noted be quite hypothermic on admission temperature 90.5. Warming device placed. Chest x-ray admission revealed bilateral infiltrates versus pulmonary edema. Patient received 40 mg IV furosemide and was given 2000 mg cefepime and 500 mg azithromycin along with bronchodilator therapy. CT brain revealed no acute intracranial findings. EEG has normalized. She is currently seen somewhat hypertensive in room E 33. She is arousable on the ventilator but currently not falling commands on a propofol drip. 07/19: Remains intubated lightly sedated. Suspected abscess right upper inner thigh, on US. CT abdomen pelvis -Distended gallbladder containing calcified gallstones with prominent common bile duct and mild central intrahepatic ductal dilatation. Distal CBD stone noted on ultrasound exam is not definitively visualized. Findings concerning for at least partial distal CBD obstruction. Objective Vital Signs Date Time Temp Pulse Resp B/P (MAP) Pulse Ox O2 Delivery O2 Flow Rate FiO2 07/19/17 13:20 99 100 07/19/17 04:00 98.2 77 16 105/55 (72) 07/18/17 07:00 Ventilator Intake and Output 07/19/17 07/19/17 07/20/17 08:00 16:00 00:00 Intake Total 550 ml Output Total 475 ml Balance 75 ml Result Diagram: 07/18/17 0330 07/19/17 0457 Other Results Microbiology Date/Time Source Procedure Growth Status 07/18/17 07:20 Nasal Aspirate Influenza Types A,B Antigen (MIRIAN) - Final NEGATIVE FOR FLU A AND B ANTIGEN.... Complete 07/18/17 18:00 Urine Catheterized Urine Legionella Antigen - Final PRESUMPTIVE NEGATIVE FOR LEGIONELLA P... Complete 07/18/17 18:00 Urine Catheterized Urine Streptococcus pneumoniae Antigen (M - Final PRESUMPTIVE NEGATIVE FOR STREPTOCOCCU... Complete Imaging Chest x-ray - bilateral interstitial infiltrates versus edema. ET tube about [address] brain - no acute intracranial findings Objective Remarks GENERAL: 72 year female, critically ill currently resting in bed in no acute distress SKIN: Warm and dry. Open sore 2 x 2 cm right medial aspect of ankle with minimal erythema. Pustule to the anterior aspect of the right medial thigh status post drainage by ED physician.Fluctuant fluid collection. No signs of streaking erythema. HEAD: Atraumatic. Normocephalic. EYES: Pupils equal and round around 3 mm bilaterally and reactive. No scleral icterus. No injection or drainage. ENT: No nasal bleeding or discharge. Mucous membranes pink and moist. Orotracheally intubated NECK: Trachea midline. No JVD. CARDIOVASCULAR: Regular rate and rhythm. S1, S2. No S4. Without murmur RESPIRATORY: Few crackles appreciated throughout all lung mendoza anterior- posterior. Positive end expiratory wheeze. Breath sounds equal bilaterally. GASTROINTESTINAL: Abdomen soft, non-tender, nondistended. Active bowel sounds are appreciated MUSCULOSKELETAL: Extremities without peripheral edema. No obvious deformities. NEUROLOGICAL: Currently on sedation on the ventilator. Awake alert and follows commands. A/P Assessment and Plan Neuro/Psych: History depression Acute delirium/altered mental status likely secondary to hypoxia Patient is currently on propofol/fentanyl drips for sedation/analgesia while intubated Daily sedation vacation Acetaminophen 650 mg every 6 hours when necessary for fever CT brain 07/18 revealed no acute intracranial findings Resume sertraline 50 mg daily and mirtazapine 30 mg at night for depression CV: Coronary artery disease status post stent RCA 03/27 Dr. Monique Pulmonary edema Peripheral arterial disease status post lower extremity stenting Hypertension Dyslipidemia Pulmonary hypertension likely type III Hypothermia EKG and admission revealed normal sinus rhythm 80. IVCD with a QRS [address] elevation. Troponin 0.03. 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 No regional wall motion abnormality Metoprolol 50 mg twice a day for hypertension Lasix 40 mg iv X1 today and DC IV fluids. Holding amlodipine 5 mill grams daily and lisinopril 5 mill grams daily. Resume when clinically indicated Resume atorvastatin 20 mg daily for dyslipidemia Resuming aspirin 81 mg daily and clopidogrel 75 mg daily for stent See ID, TSH, Cortisol for hypothermia w/u Resp: Acute hypoxic respiratory failure 50 year tobacco history [facility] /10/15/49. Ventilator bundle Albuterol/ipratropium aerosols every 4 hours with albuterol aerosols every 2 hours. Dyspnea Budesonide aerosols 0.5/2 1 inhalation twice a day Spontaneous breathing trials today with possible extubation GI: Cholelithiasis Pancreatitis Patient is currently nothing by mouth CT abdomen and pelvis did not show definite CBD stone but some evidence of partial common bile duct obstruction Consult G NGT to RUBEN Lansoprazole for GI prophylaxis Docusate sodium/senna 1 tablet twice a day for bowel regimen : Fischer catheter has been placed for accurate I's and O's in a critically ill patient receiving diuretics Rheum/Endo: History of RA Lupus? Hydroxychloroquine 200 mg daily for her underlying rheumatologic disorder Currently on sliding scale insulin with Novolin R moderate protocol with Accu- Cheks every 6 hours to maintain euglycemia Renal: Acute kidney injury History of nephrolithiasis Creatinine currently 1.3. Monitor urine output Accurate I's and O's Avoid nephrotoxic drugs Recheck BMP in a.m. Heme: Normocytic anemia Chronic warfarin use History of DVTs bilateral lower extremities Hold warfarin at 5 mill grams daily. Start IV Heparin Continue aspirin/clopidogrel Daily CBC/INRs ID: UTI Probable right thigh abscess Receive 1 dose of cefepime/azithromycin in ED. Noted allergy to cephalosporins and previous records Continue on levofloxacin, vancomycin, aztreonam. General surgery consulted Blood cultures 2, sputum, UA, urine Legionella and pneumococcal antigens and influenza all pending Follow-up on wound culture to right thigh. MSK: Lower extremity wound ulcers/chronic Probable right thigh residual abscess Right thigh abscess was drained by ED. Wound care evaluate and treat FEN: Hyponatremia Replace electrolytes as clinically indicated. Access - Utilize peripheral IV. Central line if indicated Prophylaxis - GI - lansoprazole - DVT - heparin drip Critical Care: The total critical care time was 30 minutes. Time to perform other separately billable procedures was not included in the critical care time. Brigido Bucio MD Jul 19, 2017 15:22
[2017-07-19] MEDS ORDERED: FUROSEMIDE 40 MG/4 ML VIAL IV PUSH STA (15:53)
[2017-07-19] MEDS ORDERED: FUROSEMIDE 40 MG/4 ML VIAL IV PUSH ONE (16:00)
[2017-07-19] MEDS ORDERED: HEPARIN-D5W 25,000 U/250 ML 250 ML IV PRN (16:00)
--- NOTE | 2017-07-19 17:07 | PD.CONS ---
HPI History of Present Illness This is a 72 year old female who was brought to the emergency room for evaluation of shortness of breath. She was noted to be hypoxic and required intubation in the field. She was admitted for altered mental status secondary to hypoxia, acute hypoxic respiratory failure, coronary artery disease, peripheral arterial disease, hypertension, hyperlipidemia, pulmonary hypertension, hx of rheumatoid arthritis, and pancreatitis. GI has been consulted for pancreatitis/possible biliary obstruction. She was extubated earlier today, but is a poor historian and therefore the history has been obtained from both the EMR and the patient. She was noted to have a lipase of 12,530 on admission. US (07/18/17)---> echogenic kidneys noted bilaterally with bilateral cysts. Dilated common bile duct and choledocholith, cholelithiasis. The proximal pancreas is not well visualized with areas suggesting pancreatic cysts and calcifications. Small left pleural effusion, heterogeneous liver suggesting underlying hepatitis. CT scan abdomen and pelvis (07/18/17)---> small bilateral pleural effusions with associated atelectasis at the lung bases, distended gallbladder containing calcified gallstones with prominent common bile duct and mild central intrahepatic ductal dilatation. Distal common bile duct stone noted on ultrasound exam earlier today is not definitely visualized although the findings are concerning for at least partial distal CBD obstruction. Course calcifications in the pancreatic head consistent with prior pancreatitis. Possible pancreatic cysts demonstrated on US are not definitively demonstrated although region of low density near the pancreatic head likely corresponds to dilated common bile duct. Overall evaluation is limited due to lack of IV contrast. Findings consistent with medullary nephrocalcinosis. She is unaware of any prior issues with pancreatitis, gallstones, or gallbladder disease. Of note there is mention of transhepatic biliary stent in chart, although I cannot find record of this at this facility. She has FHCP, but there are no GI records in our outpatient records. She denies any fever/chills/nausea/vomiting/abdominal pain or bloating. Of note, she is a poor historian. She does drink one beer daily. She also has rheumatoid arthritis. OF note she has a history of PAD and CAD and is on Coumadin, Plavix, and ASA. She is currently on a heparin drip. (Carolyn Pino) PFSH Past Medical History Rheumatoid arthritis Lupus since 1999 Sjogren's syndrome Stage III CKD Osteoporosis Dysphagia, malnutrition in past requiring feeding tube Pulmonary hypertension COPD CAD PAD Hx lower extremity DVT CHF Nephrolithiasis Lupus RA Depression HTN Hyperlipidemia Nonhealing decubitus ulcer right ankle LENNY Hx colon polyps (2 in 2013, 2 in 2008) Past Surgical History Right ankle ORIF Cardiac catheterization with stent placement IVC filter ? transhepatic biliary stnet Iliac stent placement Cataract surgery Colonoscopy Hip repair Parathyroid surgery Tubal ligation Venous thrombectomy Right femur rodding and later removal (Carolyn Pino) Coded Allergies: No Known Allergies (Unverified , 07/18/17) Medications Allergies Coded Allergies Type Severity Reaction Last Updated Verified No Known Allergies 07/18/17 No Active Scripts Medications Dose Route/Sig Max Daily Dose Days Date Category Dose Instructions Iron (Ferrous Sulfate) 18 Mg Tab 65 Mg PO DAILY 07/18/17 Reported Mirtazapine 30 Mg Tab 30 Mg PO HS 07/18/17 Reported Lopressor (Metoprolol Tartrate) 50 Mg Tab 50 Mg PO BID 07/18/17 Reported Lisinopril 5 Mg Tab 5 Mg PO DAILY 07/18/17 Reported Plaquenil (Hydroxychloroquine Sulfate) 200 Mg Tab 200 Mg PO DAILY 07/18/17 Reported Take with food Plavix (Clopidogrel Bisulfate) 75 Mg Tab 75 Mg PO DAILY 07/18/17 Reported Vitamin D3 (Cholecalciferol) 1,000 Unit Cap Unknown Dose PO DAILY 07/18/17 Reported Symbicort Inh (Budesonide/Formoterol Fumarate) 160-4.5 Mcg/Act Aero 1 Puff INH Q12HR 07/18/17 Reported Lipitor (Atorvastatin Calcium) 20 Mg Tab 20 Mg PO HS 07/18/17 Reported Coumadin (Warfarin) 5 Mg Tab 5 Mg PO DAILY 07/18/17 Reported Sertraline (Sertraline HCl) 50 Mg Tab 50 Mg PO DAILY 07/18/17 Reported Aspirin Children's (Aspirin) 81 Mg Chew 81 Mg PO DAILY 07/18/17 Reported Family History Mother had heart disease Father with unknown type of cancer Social History 50 pack year smoking hx, recent quit Drinks 1 beer daily No illicit drug use (Carolyn Pino) Review of Systems Constitutional: COMPLAINS OF: Fatigue, DENIES: Fever, Weight loss, Chills, Change in appetite Respiratory: COMPLAINS OF: Cough, Shortness of breath Cardiovascular: DENIES: Chest pain Gastrointestinal: DENIES: Abdominal pain, Black stools, Bloody stools, Constipation, Diarrhea, Nausea, Vomiting, Swelling of Abdomen, Hematemesis Musculoskeletal: COMPLAINS OF: Joint pain Hematologic/lymphatic: COMPLAINS OF: Bruising Psychiatric: COMPLAINS OF: Confusion ROS Poor historian (PinoCarolyn) GI Exam Vitals I&O Vital Signs Date Time Temp Pulse Resp B/P (MAP) Pulse Ox O2 Delivery O2 Flow Rate FiO2 07/19/17 15:40 100 Nasal Cannula 4 36 07/19/17 13:20 99 100 07/19/17 12:00 35 07/19/17 11:00 100 35 07/19/17 08:00 40 07/19/17 07:51 100 35 07/19/17 04:23 40 07/19/17 04:00 98.2 77 16 105/55 (72) 100 07/19/17 03:56 100 40 07/19/17 00:00 98.0 62 16 118/55 (76) 100 07/18/17 23:49 100 40 07/18/17 20:41 100 40 07/18/17 20:00 98.4 59 16 157/70 (99) 100 07/18/17 18:00 58 I/O 07/18/17 07/18/17 07/18/17 07/19/17 07/19/17 07/19/17 07:00 15:00 23:00 07:00 15:00 23:00 Intake Total 390 ml 550 ml Output Total 4250 ml 475 ml Balance -3860 ml 75 ml Intake Oral 0 ml IV Total 390 ml 550 ml Output Urine Total 4250 ml 450 ml Gastric Drainage Total 25 ml # Bowel Movements 0 Imaging Last Impressions Lower Extremity Ultrasound 07/19/17 0000 Signed Impressions: Service Date/Time: Wednesday, July 19, 2017 12:04 - CONCLUSION: Abnormal thigh. MRI or CT with contrast would be of benefit for further evaluation. Abscess is suspected. Neftaly Esquivel MD FACR Head CT 07/18/17 0000 Signed Impressions: Service Date/Time: Tuesday, July 18, 2017 04:29 - CONCLUSION: Normal examination. Tha Shaw Jr., MD Chest X-Ray 07/18/17 0000 Signed Impressions: Service Date/Time: Tuesday, July 18, 2017 04:27 - CONCLUSION: 1. Cardiomegaly. 2. Bilateral pulmonary infiltrates. Tha Shaw Jr., MD Abdomen/Pelvis CT 07/18/17 0000 Signed Impressions: Service Date/Time: Wednesday, July 19, 2017 12:56 - CONCLUSION: 1. Small bilateral pleural effusions with associated atelectasis at the lung bases. 2. Distended gallbladder containing calcified gallstones with prominent common bile duct and mild central intrahepatic ductal dilatation. Distal CBD stone noted on ultrasound exam earlier today is not definitively visualized although the findings are concerning for at least partial distal CBD obstruction. 3. Coarse calcifications in the pancreatic head consistent with prior pancreatitis. Possible pancreatic cysts demonstrated on ultrasound are not definitively demonstrated although region of low density near the pancreatic head likely corresponds to dilated common bile duct. Overall evaluation is limited due to lack of IV contrast. 4. Findings consistent with medullary nephrocalcinosis. Lobo Kessler MD Abdomen Ultrasound 07/18/17 0000 Signed Impressions: Service Date/Time: Tuesday, July 18, 2017 17:05 - CONCLUSION: 1. Echogenic kidneys noted bilaterally with bilateral cysts. 2. Dilated common bile duct and choledocholith.. 3. Cholelithiasis. 4. The proximal pancreas is not well-visualized with areas suggesting pancreatic cysts and calcifications. 5. Small left pleural effusion. 6. Heterogeneous liver suggesting underlying hepatitis. Reno Ortez MD Laboratory Test 07/18/17 18:00 07/18/17 20:20 07/19/17 04:57 Activated Partial Thromboplast Time 58.4 SEC 63.6 SEC Urine Eosinophils 0-2 /HPF Urine Random Creatinine 21.2 MG/DL Urine Random Sodium 37 MEQ/L Phosphorus Level 4.8 MG/DL 5.5 MG/DL Magnesium Level 1.9 MG/DL 1.9 MG/DL Troponin I 0.02 NG/ML Thyroid Stimulating Hormone 3rd Gen 1.420 uIU/ML Prothrombin Time 28.6 SEC Prothromb Time International Ratio 2.5 RATIO Blood Urea Nitrogen 42 MG/DL Creatinine 1.48 MG/DL Random Glucose 78 MG/DL Total Protein 6.4 GM/DL Albumin 2.5 GM/DL Calcium Level 8.1 MG/DL Alkaline Phosphatase 131 U/L Aspartate Amino Transf (AST/SGOT) 26 U/L Alanine Aminotransferase (ALT/SGPT) 24 U/L Total Bilirubin 0.2 MG/DL Sodium Level 132 MEQ/L Potassium Level 4.7 MEQ/L Chloride Level 103 MEQ/L Carbon Dioxide Level 16.9 MEQ/L Anion Gap 12 MEQ/L Estimat Glomerular Filtration Rate 35 ML/MIN Lactic Acid Level 1.2 mmol/L Amylase Level 298 U/L Lipase 2832 U/L Date/Time Source Procedure Growth Status 07/18/17 03:30 Blood Peripheral Aerobic Blood Culture - Preliminary NO GROWTH IN 1 DAY Resulted 07/18/17 03:30 Blood Peripheral Anaerobic Blood Culture - Preliminary NO GROWTH IN 1 DAY Resulted 07/18/17 07:20 Nasal Aspirate Influenza Types A,B Antigen (MIRIAN) - Final NEGATIVE FOR FLU A AND B ANTIGEN.... Complete 07/18/17 18:00 Urine Catheterized Urine Legionella Antigen - Final PRESUMPTIVE NEGATIVE FOR LEGIONELLA P... Complete 07/18/17 18:00 Urine Catheterized Urine Streptococcus pneumoniae Antigen (M - Final PRESUMPTIVE NEGATIVE FOR STREPTOCOCCU... Complete 07/18/17 03:30 Wound Leg Gram Stain - Final Resulted 07/18/17 03:30 Wound Leg Wound Culture - Preliminary Resulted Physical Examination HEENT: Normocephalic; atraumatic; no jaundice. CHEST: Resp shallow/even, diminished. N/C CARDIAC: RRR ABDOMEN: Soft, nondistended, NONtender; no hepatosplenomegaly; bowel sounds are present in all four quadrants. EXTREMITIES: Drsg right lower extremity BRAIDER TENDER: Lethargic, oriented to self. (Carolyn Pino) Assessment and Plan Plan ASSESSMENT: - Acute pancreatitis. Denies any prior history of gallstones, gb issues, or pancreatitis. There is mention of a transhepatic biliary stent in hx and pt has evidence of prior episodes of pancreatitis (calcifications) on CT. US (07/18/17)---> echogenic kidneys noted bilaterally with bilateral cysts. Dilated common bile duct and choledocholith, cholelithiasis. The proximal pancreas is not well visualized with areas suggesting pancreatic cysts and calcifications. Small left pleural effusion, heterogeneous liver suggesting underlying hepatitis. CT scan abdomen and pelvis (07/18/17)---> small bilateral pleural effusions with associated atelectasis at the lung bases, distended gallbladder containing calcified gallstones with prominent common bile duct and mild central intrahepatic ductal dilatation. Distal common bile duct stone noted on ultrasound exam earlier today is not definitely visualized although the findings are concerning for at least partial distal CBD obstruction. Course calcifications in the pancreatic head consistent with prior pancreatitis. Possible pancreatic cysts demonstrated on US are not definitively demonstrated although region of low density near the pancreatic head likely corresponds to dilated common bile duct. Overall evaluation is limited due to lack of IV contrast. Findings consistent with medullary nephrocalcinosis. Daily ETOH- 1 beer. Hx lupus/RA. Imaging suggests possible biliary etiology. Clinically, she does not have any nausea/vomiting/abdominal pain. WBC 8.9. LFTs T> Bili 0.2, AST 26, ALT 24, Alk Phopsh 131. Lipase down to 2832. Clear liquids, IVF. Will need further evaluation with MRCP. GFR 35- will give IVF to hydrate - Abnormal imaging with biliary dilatation. CT with distended gallbladder containing calcified gallstones with prominent common bile duct and mild central intrahepatic ductal dilatation. US with dilated CBD and choledocholith, cholelithiasis. She will likely need ERCP, but she was recently extubated and her breathing is very shallow and her LFTs are not obstructive, there is no signs of cholangitis, lipase improving. Will get MRCP and make further recommendations once we have the results of MRCP. She does not have any n/v/pain. - Cholelithiasis/Distended GB. Afebrile, WBC unremarkable. Nontender on exam. No n/v. - Anemia of chronic disease. Followed by Dr. Laura as outpt. .6. - Respiratory failure, COPD, Pleural effusion. S/P Extubation. Now on N/C - Nonhealing right ankle wound/Chronic right le infection, probable right thigh abscess. Hx left femur april removed due to sepsis in 2014, chronic nonhealing wounds right thigh since 06/2016- bx negative for malignancy)/foot since 2003 following a triple fracture incident. Abx per CCM. GS consulted. Recently seen by Dr. Day in March for nonhealing ankle wound, recommended Santyl Collagenase nickel thick in wound topped with gauze daily. - RA, Lupus since 1999, Sjogrens syndrome. per outpatient records. On Plaquenil - AMS, Improved, oriented to self and place, does not know why she is here - Acute on chronic kidney disease. Creat 1.48 - CAD, hx of sent to [facility] in March of 2017, HTN, Hyperlipidemia, Hx DVTs. Pt on Plavix, asa, coumadin at home. Currently on heparin gtt, plavix PLAN: - Clear liquids - Add IVF - MRCP with and without contrast- GFR 35, will give IVF to hydrate - On levaquin/azactam - Lipase CBC, CMP in am - Of note, patient is on Plavix and heparin gtt - Further recommendations to follow based on results of above - PT seen and examined by Dr. Carmona and myself and this note is written on his behalf (Carolyn Pino) Physician Comments Seen and examined with [employer] CREW[employer]BER, biliary pancreatitis. MRCP ordered, may need ERCP and surgical referral. Poor candidate for ERCP. LFTs normal, Lipase improving, minimal abdominal pain reported. Will follow, thankyou (Hannah Carmona MD) Carolyn Pino Jul 19, 2017 17:07 Hannah Carmona MD Jul 19, 2017 17:38
--- NOTE | 2017-07-19 17:29 | PD.CONS ---
HPI Service General Surgery Consult Requested By Dr. Bucio Reason for Consult right thigh wound Primary Care Physician Unknown History of Present Illness 72-year-old female with pancreatitis and acute respiratory failure extubated today. She is noted to have a wound on the right upper inner thigh. She had an ultrasound of the area showing induration with 3 tracts extending down to the muscle. The patient is a somewhat poor historian but she is able to tell me that she thinks this is been present for one year and started after a vascular operation for "aneurysm" in [place]. She states the wound on her right heel has been present for 20 years. She says she has 3 stents in her right lower extremity. Review of Systems Constitutional: DENIES: Fever, Chills Eyes: DENIES: Eye inflammation, Eye pain Respiratory: COMPLAINS OF: Shortness of breath Cardiovascular: DENIES: Chest pain, Palpitations Gastrointestinal: COMPLAINS OF: Abdominal pain Musculoskeletal: DENIES: Stiffness Integumentary: DENIES: Pruritus, Rash Past Family Social History Past Medical History Coronary artery disease Peripheral vascular disease Chronic right lower extremity heel wound Past Surgical History Multiple stents right lower extremity Reported Medications Reported Meds & Active Scripts Active Reported Iron (Ferrous Sulfate) 18 Mg Tab 65 Mg PO DAILY Mirtazapine 30 Mg Tab 30 Mg PO HS Lopressor (Metoprolol Tartrate) 50 Mg Tab 50 Mg PO BID Lisinopril 5 Mg Tab 5 Mg PO DAILY Plaquenil (Hydroxychloroquine Sulfate) 200 Mg Tab 200 Mg PO DAILY Take with food Plavix (Clopidogrel Bisulfate) 75 Mg Tab 75 Mg PO DAILY Vitamin D3 (Cholecalciferol) 1,000 Unit Cap Unknown Dose PO DAILY Symbicort Inh (Budesonide/Formoterol Fumarate) 160-4.5 Mcg/Act Aero 1 Puff INH Q12HR Lipitor (Atorvastatin Calcium) 20 Mg Tab 20 Mg PO HS Coumadin (Warfarin) 5 Mg Tab 5 Mg PO DAILY Sertraline (Sertraline HCl) 50 Mg Tab 50 Mg PO DAILY Aspirin Children's (Aspirin) 81 Mg Chew 81 Mg PO DAILY Allergies: Coded Allergies: No Known Allergies (Unverified , 07/18/17) Active Ordered Medications Current Medications Medications (Trade) Dose Ordered Sig/Sarah Route Start Time Stop Time Status Last Admin (NS Flush) 2 ml UNSCH PRN IV FLUSH 07/18/17 07:00 (NS Flush) 2 ml BID IV FLUSH 07/18/17 09:00 07/19/17 09:57 (Prevacid Odt) 30 mg DAILY G-TUBE 07/18/17 09:00 07/19/17 09:55 (Tears Naturale Opth Soln) 1 drop TID EACH EYE 07/18/17 09:00 07/19/17 16:34 (Zofran Inj) 4 mg Q6H PRN IV PUSH 07/18/17 07:00 (Duoneb Neb) 1 ampule Q4HR NEB INH 07/18/17 08:00 07/19/17 15:24 (Albuterol Neb) 2.5 mg Q2HR NEB PRN INH 07/18/17 07:00 Miscellaneous Information 1 Q361D XX 07/18/17 07:00 (Chlorhexidine 2% Cloth) 3 pack Taper DAILY@04 TOP 07/19/17 04:00 07/15/18 03:59 07/19/17 04:00 (Chlorhexidine 2% Cloth) 3 pack UNSCH PRN TOP 07/18/17 07:00 (Juana-Colace) 1 tab BID PO 07/18/17 09:00 07/19/17 09:56 (Milk Of Magnesia Liq) 30 ml Q12H PRN PO 07/18/17 07:00 (Senokot) 17.2 mg Q12H PRN PO 07/18/17 07:00 (Dulcolax Supp) 10 mg DAILY PRN RECTAL 07/18/17 07:00 (Lactulose Liq) 30 ml DAILY PRN PO 07/18/17 07:00 (Peridex 0.12% Liq) 15 ml BID@08,20 MT 07/18/17 08:00 07/19/17 09:56 Propofol 100 ml @ 1.362 mls/ hr TITRATE PRN IV 07/18/17 07:00 Fentanyl Citrate 250 ml @ 5 mls/hr TITRATE PRN IV 07/18/17 07:00 07/18/17 13:44 (Aspirin Chew) 81 mg DAILY CHEW 07/18/17 09:00 07/19/17 09:56 (Plavix) 75 mg DAILY PO 07/18/17 09:00 07/19/17 09:55 (Coumadin) 5 mg DAILY@1600 PO 07/18/17 16:00 Future Hold 07/19/17 14:35 (Plaquenil) 200 mg DAILY PO 07/18/17 09:00 07/19/17 09:55 (Lipitor) 20 mg DAILY PO 07/18/17 09:00 07/19/17 09:54 (Remeron) 15 mg HS PO 07/18/17 21:00 07/18/17 20:48 (Zoloft) 50 mg DAILY PO 07/18/17 09:00 07/19/17 09:56 (Pulmicort Respule Neb) 0.5 mg Q12HR NEB NEB 07/18/17 08:00 07/19/17 07:48 (SoluMEDROL INJ) 40 mg Q8HR IV PUSH 07/18/17 14:00 07/19/17 14:34 (D50w (Vial) Inj) 50 ml UNSCH PRN IV PUSH 07/18/17 07:00 (Glucagon Inj) 1 mg UNSCH PRN OTHER 07/18/17 07:00 (NovoLIN R SUPPLEMENTAL SCALE) 1 Q6HR SQ 07/18/17 12:00 (Lopressor) 50 mg BID PO 07/18/17 09:00 07/19/17 09:55 (Ferrous Sulfate) 325 mg DAILY PO 07/18/17 09:00 07/19/17 09:55 Aztreonam 2000 mg/ Sodium Chloride 100 ml @ 200 mls/hr Q8H IV 07/18/17 09:00 07/19/17 16:34 Levofloxacin/ Dextrose 150 ml @ 100 mls/hr Q24H IV 07/18/17 10:00 07/19/17 09:54 Pharmacy Profile Note 0 ml @ 0 mls/hr UNSCH OTHER 07/18/17 08:00 (Tylenol 650 Mg/ 20 ml Liq) 650 mg Q6H PRN PO 07/18/17 13:30 (Apresoline Inj) 10 mg Q1H PRN IV PUSH 07/18/17 14:15 07/18/17 14:18 (Nitroglycerin 2% Oint) 2 inch Q6H PRN TOPICAL 07/18/17 14:15 (Norvasc) 5 mg DAILY PO 07/19/17 09:00 07/19/17 09:56 (Trandate Inj) 5 mg Q1H PRN IV PUSH 07/18/17 14:15 Heparin Sodium/ Dextrose 250 ml @ 5 mls/hr TITRATE PRN IV 07/19/17 16:00 Sodium Chloride 1,000 ml @ 100 mls/hr Q10H IV 07/19/17 17:15 UNV Family History Nontender. Social History [id number] smoking history and quit recently. She drinks 1 beer daily. Physical Exam Vital Signs Vital Signs Date Time Temp Pulse Resp B/P (MAP) Pulse Ox O2 Delivery O2 Flow Rate FiO2 07/19/17 15:40 100 Nasal Cannula 4 36 07/19/17 13:20 99 100 07/19/17 12:00 35 07/19/17 11:00 100 35 07/19/17 08:00 40 07/19/17 07:51 100 35 07/19/17 04:23 40 07/19/17 04:00 98.2 77 16 105/55 (72) 100 07/19/17 03:56 100 40 07/19/17 00:00 98.0 62 16 118/55 (76) 100 07/18/17 23:49 100 40 07/18/17 20:41 100 40 07/18/17 20:00 98.4 59 16 157/70 (99) 100 07/18/17 18:00 58 Physical Exam GENERAL: Awake and alert. Frail. HEAD: Normocephalic. Atraumatic. EYES: Pupils equal round and reactive to light bilaterally. No scleral icterus. CHEST: Nonlabored breathing. No respiratory distress. CARDIOVASCULAR: Regular rate and rhythm. EXTREMITIES: No cyanosis or edema. Bandage in place right foot. Right upper inner thigh with apparently chronic wound approximately 2 cm and a smaller wound associated. There is a large area may be 8 cm in diameter of induration. Mildly tender. No fluctuance. No pulsation. SKIN: Warm, dry, nonjaundiced. Laboratory Laboratory Tests Test 07/18/17 18:00 07/18/17 20:20 07/19/17 04:57 Activated Partial Thromboplast Time 58.4 63.6 Urine Eosinophils 0-2 Urine Random Creatinine 21.2 Urine Random Sodium 37 Phosphorus Level 4.8 5.5 Magnesium Level 1.9 1.9 Troponin I 0.02 Thyroid Stimulating Hormone 3rd Gen 1.420 Prothrombin Time 28.6 Prothromb Time International Ratio 2.5 Blood Urea Nitrogen 42 Creatinine 1.48 Random Glucose 78 Total Protein 6.4 Albumin 2.5 Calcium Level 8.1 Alkaline Phosphatase 131 Aspartate Amino Transf (AST/SGOT) 26 Alanine Aminotransferase (ALT/SGPT) 24 Total Bilirubin 0.2 Sodium Level 132 Potassium Level 4.7 Chloride Level 103 Carbon Dioxide Level 16.9 Anion Gap 12 Estimat Glomerular Filtration Rate 35 Lactic Acid Level 1.2 Amylase Level 298 Lipase 2832 Date/Time Source Procedure Growth Status 07/18/17 03:30 Blood Peripheral Aerobic Blood Culture - Preliminary NO GROWTH IN 1 DAY Resulted 07/18/17 03:30 Blood Peripheral Anaerobic Blood Culture - Preliminary NO GROWTH IN 1 DAY Resulted 07/18/17 07:20 Nasal Aspirate Influenza Types A,B Antigen (MIRIAN) - Final NEGATIVE FOR FLU A AND B ANTIGEN.... Complete 07/18/17 18:00 Urine Catheterized Urine Legionella Antigen - Final PRESUMPTIVE NEGATIVE FOR LEGIONELLA P... Complete 07/18/17 18:00 Urine Catheterized Urine Streptococcus pneumoniae Antigen (M - Final PRESUMPTIVE NEGATIVE FOR STREPTOCOCCU... Complete 07/18/17 03:30 Wound Leg Gram Stain - Final Resulted 07/18/17 03:30 Wound Leg Wound Culture - Preliminary Resulted Result Diagram: 07/18/17 0330 07/19/17 0457 Imaging Last Impressions Lower Extremity Ultrasound 07/19/17 0000 Signed Impressions: Service Date/Time: Wednesday, July 19, 2017 12:04 - CONCLUSION: Abnormal thigh. MRI or CT with contrast would be of benefit for further evaluation. Abscess is suspected. Neftaly Esquivel MD FACR Head CT 07/18/17 0000 Signed Impressions: Service Date/Time: Tuesday, July 18, 2017 04:29 - CONCLUSION: Normal examination. Tha Shaw Jr., MD Chest X-Ray 07/18/17 0000 Signed Impressions: Service Date/Time: Tuesday, July 18, 2017 04:27 - CONCLUSION: 1. Cardiomegaly. 2. Bilateral pulmonary infiltrates. Tha Shaw Jr., MD Abdomen/Pelvis CT 07/18/17 0000 Signed Impressions: Service Date/Time: Wednesday, July 19, 2017 12:56 - CONCLUSION: 1. Small bilateral pleural effusions with associated atelectasis at the lung bases. 2. Distended gallbladder containing calcified gallstones with prominent common bile duct and mild central intrahepatic ductal dilatation. Distal CBD stone noted on ultrasound exam earlier today is not definitively visualized although the findings are concerning for at least partial distal CBD obstruction. 3. Coarse calcifications in the pancreatic head consistent with prior pancreatitis. Possible pancreatic cysts demonstrated on ultrasound are not definitively demonstrated although region of low density near the pancreatic head likely corresponds to dilated common bile duct. Overall evaluation is limited due to lack of IV contrast. 4. Findings consistent with medullary nephrocalcinosis. Lobo Kessler MD Abdomen Ultrasound 07/18/17 0000 Signed Impressions: Service Date/Time: Tuesday, July 18, 2017 17:05 - CONCLUSION: 1. Echogenic kidneys noted bilaterally with bilateral cysts. 2. Dilated common bile duct and choledocholith.. 3. Cholelithiasis. 4. The proximal pancreas is not well-visualized with areas suggesting pancreatic cysts and calcifications. 5. Small left pleural effusion. 6. Heterogeneous liver suggesting underlying hepatitis. Reno Ortez MD Assessment and Plan Assessment and Plan 72 yo F with right thigh wound since vascular operation in [place] one year ago for "aneurysm". Recommend CT RLE with IV contrast if renal function can tolerate it. Recommend evaluation by vascular surgery as this may be associated with a prosthetic graft. Juan Jose Moya MD Jul 19, 2017 17:29
[2017-07-19 18:24] LABS: HEMATOCRIT 27.1 % (35.0-46.0); MEAN CELL VOLUME 92.9 FL (80.0-100.0); MEAN CORPUSCULAR HEMOGLOBIN 31.6 PG (27.0-34.0); PLATELET COUNT 282 TH/MM3 (150-450); RED BLOOD COUNT 2.91 MIL/MM3 (4.00-5.30); RED CELL DISTRIBUTION WIDTH 15.5 % (11.6-17.2); REVIEW FLAG FINAL; WHITE BLOOD COUNT 15.6 TH/MM3 (4.0-11.0)
[2017-07-19 18:42] LABS: APTT (PATIENT) 67.4 SEC (24.3-30.1); INTERNATIONAL NORMALIZED RATIO 3.9 RATIO; PROTHROMBIN TIME - PATIENT 45.9 SEC (9.8-11.6)
[2017-07-19] MEDS: MIRTAZAPINE 15 MG TAB PO SCH (21:26)
[2017-07-19] MEDS ORDERED: ACETAMINOPHEN/HYDROcodone 325 MG/5 MG TAB PO PRN (21:30)
[2017-07-19] MEDS: ACETAMINOPHEN/HYDROcodone 325 MG/5 MG TAB PO PRN (22:28)
[2017-07-19] MEDS ORDERED: GADOBENATE DIM PF 529 MG/ML 5 ML VIAL (for RAD MRI) IV ONE (22:35)
--- NOTE | 2017-07-19 22:44 | RADRPT ---
EXAM DATE/TIME: 07/19/2017 21:49 [facility] COMPARISON: No previous studies available for comparison. INDICATIONS : Obstruction. CONTRAST: 8 cc Multihance (gadobenate) IV MEDICAL HISTORY : Hypertension. Renal calculi. Anemia. SURGICAL HISTORY : IVC Filter placement. Coronary artery stent. Right leg. Vascular stent, right leg. ENCOUNTER: Subsequent ACUITY: 1 day PAIN SCORE: 5/10 LOCATION: Abdomen. TECHNIQUE: Multiplanar, multisequence magnetic resonance imaging of the abdomen was performed. High-resolution 3D dataset was utilized to reconstruct maximum-intensity projection (MIP) images. FINDINGS: The liver and spleen are normal in size and signal intensity without evidence of focal mass.Small christos ateral pleural effusions are identified. There are multiple stones within the gallbladder without wal l thickening or pericholecystic fluid the largest measuring 3 mm. No common duct stones are identifie d. The pancreas demonstrates no evidence of mass or there is irregular beading of the pancreatic duct characteristic of pancreatitis. No acute findings are present. The adrenal glands and kidneys appear normal bilaterally. No hydronephrosis or mass lesions are identified. CONCLUSION: 1. Cholelithiasis without evidence of common duct stone 2. Dilatation and irregularity of the pancreatic duct characteristic of chronic pancreatitis Dk Berger MD on July 19, 2017 at 22:38 Board Certified Radiologist. This report was verified electronically.
[2017-07-20] VITALS (13 sets, daily range): BP systolic 126–165; BP diastolic 57–71; PULSE 61–80; RESP 12–28; TEMP 97.7–98.5; O2SAT 100
[2017-07-20] MEDS: SODIUM CHLOR 0.9% 1000 ML INJ 1,000 ML IV SCH ×3 (00:31→18:51)
[2017-07-20] MEDS: AZTREONAM INJ 2,000 MG in SODIUM CHLORIDE 0.9% INJ 100 ML IV SCH ×2 (00:36→10:37)
[2017-07-20] MEDS: ACETAMINOPHEN/HYDROcodone 325 MG/5 MG TAB PO PRN ×3 (00:51→20:43)
[2017-07-20] MEDS: RESP: ALBUTEROL 2.5 MG/IPRATROPIUM 0.5 MG NEB (SCH) INH ×6 (03:23→19:43)
[2017-07-20] MEDS: CHLORHEXIDINE GLUCONATE 2 % 1 PACK (2 CLOTHS) TOP SCH (03:56)
--- NOTE | 2017-07-20 05:07 | RADRPT ---
EXAM DATE/TIME: 07/20/2017 04:12 [facility] COMPARISON: CHEST SINGLE AP, July 18, 2017, 4:27. INDICATIONS : Short of breath. MEDICAL HISTORY : None. SURGICAL HISTORY : None. ENCOUNTER: Subsequent ACUITY: 3 days PAIN SCORE: 0/10 LOCATION: Bilateral chest FINDINGS: There has been interval extubation and removal of nasogastric tube. There are persistent perihilar pa renchymal opacities and slight worsening in basilar aeration compared previous film. Cardiac contours are grossly stable. CONCLUSION: Interval extubation. Persistent bilateral infiltrates. Fortunato Pickett MD on July 20, 2017 at 5:05 Board Certified Radiologist. This report was verified electronically.
[2017-07-20] MEDS: methylPREDNISolone SOD SUCC 40 MG/1 ML VIAL IV PUSH SCH ×3 (05:26→20:43)
[2017-07-20] MEDS: INSULIN NovoLIN REGULAR SUPPLEMENTAL SCALE SQ SCH ×5 (05:35→23:41)
[2017-07-20 07:23] LABS: BASOPHIL % 0.4 % (0.0-2.0); HEMATOCRIT 26.8 % (35.0-46.0); HEMO FLAGS DIFF FINAL; LYMPH % 7.9 % (9.0-44.0); LYMPHOCYTE # 0.8 TH/MM3 (1.0-4.8); MEAN CELL VOLUME 92.1 FL (80.0-100.0); MEAN CORPUSCULAR HEMOGLOBIN 31.8 PG (27.0-34.0); MEAN CORPUSCULAR HGB CONC 34.5 % (32.0-36.0); MONO % 7.6 % (0.0-8.0); NEUT % 84.1 % (16.0-70.0); PLATELET COUNT 269 TH/MM3 (150-450); RED CELL DISTRIBUTION WIDTH 15.3 % (11.6-17.2); WHITE BLOOD COUNT 9.5 TH/MM3 (4.0-11.0)
[2017-07-20 07:30] LABS: PROTHROMBIN TIME - PATIENT 83.7 SEC (9.8-11.6)
[2017-07-20 07:37] LABS: APTT (PATIENT) 101.8 SEC (24.3-30.1)
[2017-07-20 07:51] LABS: BICARBONATE 15.5 MEQ/L (21.0-32.0); CALCIUM-PROTEIN CORRECTED 8.1 MG/DL (8.5-10.1); MAGNESIUM 1.9 MG/DL (1.5-2.5); POTASSIUM 4.1 MEQ/L (3.5-5.1); TOTAL BILIRUBIN ADULT 0.1 MG/DL (0.2-1.0)
[2017-07-20] MEDS: CHLORHEXIDINE 0.12% (ORAL KIT) 15 ML CUP MT SCH ×2 (08:00→20:00)
[2017-07-20] MEDS: LANSOPRAZOLE SOLUTAB 30 MG TAB G-TUBE SCH (09:00)
[2017-07-20] MEDS: ASPIRIN 81 MG CHEW TAB CHEW SCH (09:00)
[2017-07-20] MEDS: CLOPIDOGREL 75 MG TAB PO SCH (09:00)
[2017-07-20] MEDS: FERROUS SULFATE 325 MG (65 MG ELEMENTAL IRON) TAB PO SCH (09:00)
[2017-07-20] MEDS: SODIUM CHLORIDE 0.9% FLUSH 10 ML FLUSH IV FLUSH SCH ×2 (09:00→20:42)
[2017-07-20] MEDS: RESP: BUDESONIDE 0.5 MG/2 ML NEB NEB SCH ×2 (09:07→19:43)
[2017-07-20] MEDS: LEVOFLOXACIN 750 MG PREMIX INJ 150 ML IV SCH (10:37)
[2017-07-20] MEDS: SERTRALINE HCL 50 MG TAB PO SCH (10:39)
[2017-07-20] MEDS: DOCUSATE SODIUM 50 MG/SENNA 8.6 MG TAB PO SCH ×2 (10:40→20:43)
[2017-07-20] MEDS: METOPROLOL TARTRATE 50 MG TAB PO SCH ×2 (10:40→20:43)
[2017-07-20] MEDS: amLODIPine BESYLATE 5 MG TAB PO SCH (10:40)
[2017-07-20] MEDS: HYDROXYCHLOROQUINE SULFATE 200 MG TAB PO SCH (10:41)
[2017-07-20] MEDS: ATORVASTATIN 20 MG TAB PO SCH (10:42)
[2017-07-20] MEDS: ARTIFICIAL TEARS OPTH SOLN 15 ML BTL EACH EYE SCH ×3 (10:44→18:00)
[2017-07-20 12:53] LABS: APTT (PATIENT) 63.2 SEC (24.3-30.1)
[2017-07-20] MEDS: VANCOMYCIN INJ 750 MG in SODIUM CHLOR 0.9% 250 ML INJ 250 ML IV SCH (13:13)
--- NOTE | 2017-07-20 14:08 | HHI.GIFU ---
Subjective Remarks Resting in bed. No nausea, vomiting, abdominal pain. Tolerating clears. MRCP done yesterday. (Carolyn Pino) Objective Vitals I&O Vital Signs Date Time Temp Pulse Resp B/P (MAP) Pulse Ox O2 Delivery O2 Flow Rate FiO2 07/20/17 09:08 100 Nasal Cannula 1.00 07/20/17 04:00 98.0 73 23 165/69 (101) 100 07/20/17 00:00 98.3 78 17 126/59 (81) 100 07/19/17 20:00 98.1 87 17 125/60 (81) 95 07/19/17 19:30 100 Nasal Cannula 3.00 07/19/17 18:00 109 07/19/17 16:00 98.0 81 16 140/65 (90) 100 07/19/17 16:00 100 07/19/17 15:40 100 Nasal Cannula 4 36 I/O 07/19/17 07/19/17 07/19/17 07/20/17 07/20/17 07/20/17 07:00 15:00 23:00 07:00 15:00 23:00 Intake Total 550 ml 130 ml 1220 ml Output Total 475 ml 475 ml 1250 ml Balance 75 ml -345 ml -30 ml Intake Oral 0 ml 25 ml 240 ml IV Total 550 ml 105 ml 980 ml Output Urine Total 450 ml 450 ml 1250 ml Gastric Drainage Total 25 ml 25 ml # Bowel Movements 0 0 0 Laboratory Laboratory Tests Test 07/19/17 17:49 07/19/17 23:10 07/20/17 07:08 07/20/17 12:36 White Blood Count 15.6 9.5 Red Blood Count 2.91 2.90 Hemoglobin 9.2 9.2 Hematocrit 27.1 26.8 Mean Corpuscular Volume 92.9 92.1 Mean Corpuscular Hemoglobin 31.6 31.8 Mean Corpuscular Hemoglobin Concent 34.0 34.5 Red Cell Distribution Width 15.5 15.3 Platelet Count 282 269 Mean Platelet Volume 7.2 6.7 Prothrombin Time 45.9 83.7 Prothromb Time International Ratio 3.9 7.0 Activated Partial Thromboplast Time 67.4 58.0 101.8 63.2 Neutrophils (%) (Auto) 84.1 Lymphocytes (%) (Auto) 7.9 Monocytes (%) (Auto) 7.6 Eosinophils (%) (Auto) 0.0 Basophils (%) (Auto) 0.4 Neutrophils # (Auto) 8.0 Lymphocytes # (Auto) 0.8 Monocytes # (Auto) 0.7 Eosinophils # (Auto) 0.0 Basophils # (Auto) 0.0 CBC Comment DIFF FINAL Differential Comment Blood Urea Nitrogen 50 Creatinine 1.49 Random Glucose 89 Total Protein 5.7 Albumin 2.3 Calcium Level 7.3 Magnesium Level 1.9 Alkaline Phosphatase 105 Aspartate Amino Transf (AST/SGOT) 19 Alanine Aminotransferase (ALT/SGPT) 20 Total Bilirubin 0.1 Sodium Level 136 Potassium Level 4.1 Chloride Level 108 Carbon Dioxide Level 15.5 Anion Gap 13 Estimat Glomerular Filtration Rate 34 Protein Corrected Calcium 8.1 Lipase 1852 Random Vancomycin Level 13.1 Date/Time Source Procedure Growth Status 07/18/17 03:30 Blood Peripheral Aerobic Blood Culture - Preliminary NO GROWTH IN 2 DAYS Resulted 07/18/17 03:30 Blood Peripheral Anaerobic Blood Culture - Preliminary NO GROWTH IN 2 DAYS Resulted 07/18/17 07:20 Nasal Aspirate Influenza Types A,B Antigen (MIRIAN) - Final NEGATIVE FOR FLU A AND B ANTIGEN.... Complete 07/18/17 18:00 Urine Catheterized Urine Legionella Antigen - Final PRESUMPTIVE NEGATIVE FOR LEGIONELLA P... Complete 07/18/17 18:00 Urine Catheterized Urine Streptococcus pneumoniae Antigen (M - Final PRESUMPTIVE NEGATIVE FOR STREPTOCOCCU... Complete 07/18/17 03:30 Wound Leg Gram Stain - Final Resulted 07/18/17 03:30 Wound Leg Wound Culture - Preliminary Resulted Imaging Last Impressions Chest X-Ray 07/20/17 0600 Signed Impressions: Service Date/Time: Thursday, July 20, 2017 04:12 - CONCLUSION: Interval extubation. Persistent bilateral infiltrates. Fortunato Pickett MD Lower Extremity Ultrasound 07/19/17 0000 Signed Impressions: Service Date/Time: Wednesday, July 19, 2017 12:04 - CONCLUSION: Abnormal thigh. MRI or CT with contrast would be of benefit for further evaluation. Abscess is suspected. Neftaly Esquivel MD FACR Cholangiopancreatography MRI 07/19/17 0000 Signed Impressions: Service Date/Time: Wednesday, July 19, 2017 21:49 - CONCLUSION: 1. Cholelithiasis without evidence of common duct stone 2. Dilatation and irregularity of the pancreatic duct characteristic of chronic pancreatitis Dk Berger MD Head CT 07/18/17 0000 Signed Impressions: Service Date/Time: Tuesday, July 18, 2017 04:29 - CONCLUSION: Normal examination. Tha Shaw Jr., MD Abdomen/Pelvis CT 07/18/17 0000 Signed Impressions: Service Date/Time: Wednesday, July 19, 2017 12:56 - CONCLUSION: 1. Small bilateral pleural effusions with associated atelectasis at the lung bases. 2. Distended gallbladder containing calcified gallstones with prominent common bile duct and mild central intrahepatic ductal dilatation. Distal CBD stone noted on ultrasound exam earlier today is not definitively visualized although the findings are concerning for at least partial distal CBD obstruction. 3. Coarse calcifications in the pancreatic head consistent with prior pancreatitis. Possible pancreatic cysts demonstrated on ultrasound are not definitively demonstrated although region of low density near the pancreatic head likely corresponds to dilated common bile duct. Overall evaluation is limited due to lack of IV contrast. 4. Findings consistent with medullary nephrocalcinosis. Lobo Kessler MD Abdomen Ultrasound 07/18/17 0000 Signed Impressions: Service Date/Time: Tuesday, July 18, 2017 17:05 - CONCLUSION: 1. Echogenic kidneys noted bilaterally with bilateral cysts. 2. Dilated common bile duct and choledocholith.. 3. Cholelithiasis. 4. The proximal pancreas is not well-visualized with areas suggesting pancreatic cysts and calcifications. 5. Small left pleural effusion. 6. Heterogeneous liver suggesting underlying hepatitis. Reno Ortez MD Physical Exam HEENT: Normocephalic; atraumatic; no jaundice. CHEST: Resp shallow/even, diminished. N/C CARDIAC: RRR ABDOMEN: Soft, nondistended, NONtender; no hepatosplenomegaly; bowel sounds are present in all four quadrants. EXTREMITIES: Drsg right lower extremity HAZARD[employer]ER: Lethargic, oriented to self. (Carolyn Pino) Assessment and Plan Plan ASSESSMENT: - Acute pancreatitis. Denies any prior history of gallstones, gb issues, or pancreatitis. There is mention of a transhepatic biliary stent in hx and pt has evidence of prior episodes of pancreatitis (calcifications) on CT. US (07/18/17)---> echogenic kidneys noted bilaterally with bilateral cysts. Dilated common bile duct and choledocholith, cholelithiasis. The proximal pancreas is not well visualized with areas suggesting pancreatic cysts and calcifications. Small left pleural effusion, heterogeneous liver suggesting underlying hepatitis. CT scan abdomen and pelvis (07/18/17)---> small bilateral pleural effusions with associated atelectasis at the lung bases, distended gallbladder containing calcified gallstones with prominent common bile duct and mild central intrahepatic ductal dilatation. Distal common bile duct stone noted on ultrasound exam earlier today is not definitely visualized although the findings are concerning for at least partial distal CBD obstruction. Course calcifications in the pancreatic head consistent with prior pancreatitis. Possible pancreatic cysts demonstrated on US are not definitively demonstrated although region of low density near the pancreatic head likely corresponds to dilated common bile duct. Overall evaluation is limited due to lack of IV contrast. Findings consistent with medullary nephrocalcinosis. Daily ETOH- 1 beer. Hx lupus/RA. Imaging suggests possible biliary etiology. MRCP (07/19/17)----> Cholelithiasis without evidence of common duct stone. Dilatation and irregularity of the pancreatic duct characteristic of chronic pancreatitis. Clinically, she does not have any nausea/vomiting/abdominal pain. WBC improved. LFTs normal today. Lipase improving. Clear liquids, IVF. GS following, will ask to evaluate for cholelithiasis. - Abnormal imaging with biliary dilatation. CT with distended gallbladder containing calcified gallstones with prominent common bile duct and mild central intrahepatic ductal dilatation. US with dilated CBD and choledocholith, cholelithiasis. She will likely need ERCP, but she was recently extubated and her breathing is very shallow and her LFTs are not obstructive, there is no signs of cholangitis, lipase improving. MRCP without any evidence of biliary obstruction. - Cholelithiasis/Distended GB. Afebrile, WBC unremarkable. Nontender on exam. No n/v. - Anemia of chronic disease. Followed by Dr. Laura as outpt. . - Respiratory failure, COPD, Pleural effusion. S/P Extubation. Now on N/C - Nonhealing right ankle wound/Chronic right le infection, probable right thigh abscess. Hx left femur april removed due to sepsis in 2014, chronic nonhealing wounds right thigh since 06/2016- bx negative for malignancy)/foot since 2003 following a triple fracture incident. Abx per CCM. GS consulted. Recently seen by Dr. Day in March for nonhealing ankle wound, recommended Santyl Collagenase nickel thick in wound topped with gauze daily. GS following. Pt now with discolored rle, pulses are present with doppler. - RA, Lupus since 1999, Sjogrens syndrome. per outpatient records. On Plaquenil - AMS, Improved, oriented to self and place, does not know why she is here - Acute on chronic kidney disease. Creat 1.48 - CAD, hx of sent to [facility] in March of 2017, HTN, Hyperlipidemia, Hx DVTs. Pt on Plavix, asa, coumadin at home. Currently on heparin gtt, plavix PLAN: - Clear liquids - Cont. Abx - Monitor labs - GS following - GI will sign off, please reconsult as needed - PT seen and examined by Dr. Carmona and myself and this note is written on his behalf (Carolyn Pino) Physician Comments Seen and examined with CHORUS DANCER, doing well. MRCP -ve for cholidocholithiasis. Discussed withDr. Yanez regarding cholilithiasis. GI will sign off. Thank you (Hannah Carmona MD) Carolyn Pino Jul 20, 2017 14:08 Hannah Carmona MD Jul 20, 2017 16:42
[2017-07-20] MEDS ORDERED: IODIXANOL 320 MG/ML 10 ML VIAL (for Rad CT) IVCONTRAST ONE (16:00)
--- NOTE | 2017-07-20 16:19 | MB ---
cc: YOLANDA LOBATO MD DATE OF CONSULTATION 07/20/17 HISTORY OF PRESENT ILLNESS This is a 72-year-old woman who is admitted to the hospital for shortness of breath. She was quite short of breath from her and EMS was called. When they arrived the patient was had an saturation of 75% on room air. She was brought to the hospital and subsequently intubated. Since her admission to the hospital she is found to have significant pancreatitis. A chest x-ray demonstrated rather diffuse infiltrates. Initial BNP was 1087. She has a history of coronary artery disease with PTCA and stenting this past March to her right coronary. She has a history of peripheral vascular disease with stenting to her right lower extremity in 2009. I have been asked to see her because she has a chronic nonhealing wound in her right lower extremity. This has been present for over 10 years according to the patient and her and has worked with wound care throughout that period to try to heal the wound. She does have a prior history long ago of having a fracture in that lower extremity which was repaired openly, subsequently had removed hardware, although incompletely according to her . No leg pain has been present. She has subsequently been extubated and her lipase has been trending downward. She has been treated with vancomycin since her admission to the hospital. PAST MEDICAL HISTORY Her other medical problems have included hypertension for which she has been on amlodipine and depression and Lopressor. She has also been depressed and been treated with sertraline. She is on 20 milligrams of atorvastatin. PHYSICAL EXAMINATION GENERAL: She is currently resting comfortably. VITAL SIGNS: Blood pressure is somewhat elevated 165/70, pulse is 73. NECK: There is no neck vein distension. LUNGS: Her lungs are essentially clear. CARDIOVASCULAR: Exam reveals a regular rate and rhythm. No significant murmurs present. There is no gallop rhythm. ABDOMEN: Soft. There is no tenderness, organomegaly. EXTREMITIES: Reveal no edema. There are areas of chronic induration in both lower extremities. She has had a nonhealing wound on her right lower extremity with rather poor pulses. ASSESSMENT Patient has evidence for poor blood flow in her lower extremity. She certainly at this point in time is in no danger of limb ischemia and her wound has been rather chronic. Her renal function is somewhat abnormal, once her renal function improves a CTA of her lower extremities should prove helpful in trying to determine any further therapy. At this point time would continue her supportive care as you are doing and we will proceed with workup for peripheral vascular disease and once her pancreatitis and respiratory status stabilized suspect her respiratory status was based in part due to some ARDS secondary her to pancreatitis. MD OSMAR Elliott/JACKELYN /2:59 PM /4:07 PM
--- NOTE | 2017-07-20 16:22 | RADRPT ---
EXAM DATE/TIME: 07/20/2017 15:47 [facility] COMPARISON: No previous studies available for comparison. INDICATIONS : Possible abscess upper right thigh, vascular graft infection IV CONTRAST: 50 cc Visipaque (iodixanol) IV RADIATION DOSE: 6.42 CTDIvol (mGy) MEDICAL HISTORY : Deep venous thrombosis. Lupus. Hypertension. SURGICAL HISTORY : None. ENCOUNTER: Initial ACUITY: 1 yr PAIN SCALE: 5/10 LOCATION: Right upper leg TECHNIQUE: Volumetric scanning of the femur was performed. Using automated exposure control and adjustment of t he mA and/or kV according to patient size, radiation dose was kept as low as reasonably achievable to obtain optimal diagnostic quality images. DICOM format image data is available electronically for review and comparison. FINDINGS: BONES: A trochanteric nail with a large intramedullary femoral stem is noted. Bony structures are intact wit hout evidence of destructive changes. JOINTS: No evidence of joint narrowing or effusion. SOFT TISSUES: Subcutaneous inflammatory disease is present throughout the proximal thigh extending from the anterio r to the lateral margins. There is no evidence of discrete curvature fluid collection. Changes from p revious endovascular treatments are noted. Endovascular stents have been placed throughout the right SFA. A femoral popliteal bypass graft is noted in place. CONCLUSION: Extensive soft tissue swelling involving the proximal thigh without discrete fluid collection or absc ess. Status post femoral popliteal grafting and endovascular stenting. Aurelio Mccray MD on July 20, 2017 at 16:15 Board Certified Radiologist. This report was verified electronically.
--- NOTE | 2017-07-20 17:20 | HHI.CCPN ---
Subjective Remarks/Hospital Course This is a 72-year-old female. Name is Raúl Aguirre. Date of admission 07/18/2017. Past medical history includes coronary disease status post stent to the RCA 03/[address] Monique, chronic diastolic heart failure, pulmonary hypertension likely type III, ongoing tobaccoism with COPD, history of lower extremity DVTs, peripheral arterial disease status post stent to the iliac, nephrolithiasis, lupus, depression, chronic warfarin use rheumatoid arthritis, hypertension and dyslipidemia. She presents to [facility] with acute onset at 3 AM of shortness of breath. She had been "feeling tired" for the past several days. denies patient had any anginal type pain, shortness of breath, orthopnea or claudication. Upon EMS arrival, patient was emergently orally intubated using 7.5 ET tube. Of note, patient has chronic wounds to her right ankle retained hardware 15 years ago and a chronic wound on her right thigh from a dermatologic biopsy by certified adaptive physical educator in [facility]. This was drained by ED physician and has been sent for cultures. No signs of necrotizing fasciitis or spreading erythema at this time Patient was noted be quite hypothermic on admission temperature 90.5. Warming device placed. Chest x-ray admission revealed bilateral infiltrates versus pulmonary edema. Patient received 40 mg IV furosemide and was given 2000 mg cefepime and 500 mg azithromycin along with bronchodilator therapy. CT brain revealed no acute intracranial findings. EEG has normalized. She is currently seen somewhat hypertensive in room E 33. She is arousable on the ventilator but currently not falling commands on a propofol drip. 07/19: Remains intubated lightly sedated. Suspected abscess right upper inner thigh, on US. CT abdomen pelvis -Distended gallbladder containing calcified gallstones with prominent common bile duct and mild central intrahepatic ductal dilatation. Distal CBD stone noted on ultrasound exam is not definitively visualized. Findings concerning for at least partial distal CBD obstruction. 07/20: Extubated 07/20, tolerating well. INR 7, PTT 102 today. Heparin held Coumadin already on hold. CT of R thigh to rule out abscess showed Extensive soft tissue swelling involving the proximal thigh without discrete fluid collection or abscess. I have placed a vascular surgery consult to rule out femoropopliteal graft infection Objective Vital Signs Date Time Temp Pulse Resp B/P (MAP) Pulse Ox O2 Delivery O2 Flow Rate FiO2 07/20/17 14:12 16 07/20/17 09:08 100 Nasal Cannula 1.00 07/20/17 04:00 98.0 73 165/69 (101) 07/19/17 15:40 36 Intake and Output 07/20/17 07/20/17 07/21/17 08:00 16:00 00:00 Intake Total 1220 ml Output Total 1250 ml Balance -30 ml Result Diagram: 07/20/17 0708 07/20/17 0708 Other Results Microbiology Date/Time Source Procedure Growth Status 07/18/17 07:20 Nasal Aspirate Influenza Types A,B Antigen (MIRIAN) - Final NEGATIVE FOR FLU A AND B ANTIGEN.... Complete 07/18/17 18:00 Urine Catheterized Urine Legionella Antigen - Final PRESUMPTIVE NEGATIVE FOR LEGIONELLA P... Complete 07/18/17 18:00 Urine Catheterized Urine Streptococcus pneumoniae Antigen (M - Final PRESUMPTIVE NEGATIVE FOR STREPTOCOCCU... Complete Imaging Chest x-ray - bilateral interstitial infiltrates versus edema. ET tube about [address] brain - no acute intracranial findings Objective Remarks GENERAL: 72 year female, critically ill currently resting in bed in no acute distress SKIN: Warm and dry. Open sore 2 x 2 cm right medial aspect of ankle with minimal erythema. Right medial thigh status post drainage by ED physician. Large indurated area with 2 open spots, right medial thigh HEAD: Atraumatic. Normocephalic. EYES: Pupils equal and round around 3 mm bilaterally and reactive. No scleral icterus. No injection or drainage. ENT: No nasal bleeding or discharge. Mucous membranes pink and moist. NECK: Trachea midline. No JVD. CARDIOVASCULAR: Regular rate and rhythm. S1, S2. No S4. Without murmur RESPIRATORY: Few crackles appreciated throughout all lung mendoza anterior. Mild expiratory wheeze. Breath sounds equal bilaterally. GASTROINTESTINAL: Abdomen soft, non-tender, nondistended. Active bowel sounds are appreciated MUSCULOSKELETAL: Extremities without peripheral edema. No obvious deformities. NEUROLOGICAL: AO x3 No FND A/P Assessment and Plan Neuro/Psych: History depression Patient is off all sedation. Acetaminophen 650 mg every 6 hours when necessary for fever CT brain 07/18 revealed no acute intracranial findings Sertraline 50 mg daily and mirtazapine 30 mg at night for depression CV: Coronary artery disease status post stent RCA 03/27 Dr. Monique Pulmonary edema Peripheral arterial disease status post lower extremity stenting Hypertension Dyslipidemia Pulmonary hypertension likely type III Hypothermia EKG on admission revealed normal sinus rhythm 80. IVCD with a QRS [address] elevation. Troponin 0.03. 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 No regional wall motion abnormality Metoprolol 50 mg twice a day for hypertension Lasix 40 mg iv X1 07/19 Holding amlodipine 5 mill grams daily and lisinopril 5 mill grams daily. Resume when clinically indicated Resumed atorvastatin 20 mg daily for dyslipidemia Resumed aspirin 81 mg daily and clopidogrel 75 mg daily for stent. D/W Dr. Monique. Continue DAPT and Heparin Vascular surgery consult to rule out Fem Pop bypass infection. CT R thigh with contrast did not show any abscess. D/W Dr Quinn Resp: Acute hypoxic respiratory failure 50 year tobacco history Extubated 07/19 Tolerating well. Albuterol/ipratropium aerosols every 4 hours with albuterol aerosols every 2 hours. Dyspnea Budesonide aerosols 0.5/2 1 inhalation twice a day GI: Cholelithiasis Pancreatitis MRCP: Cholelithiasis without evidence of common duct stone. Dilatation and irregularity of the pancreatic duct characteristic of chronic pancreatitis Clear liquid diet. Appreciate GI consult. Lansoprazole for GI prophylaxis CT abdomen and pelvis did not show definite CBD stone but some evidence of partial common bile duct obstruction Docusate sodium/senna 1 tablet twice a day for bowel regimen : Fischer catheter has been placed for accurate I's and O's in a critically ill patient receiving diuretics Rheum/Endo: History of RA Lupus? Hydroxychloroquine 200 mg daily for her underlying rheumatologic disorder Currently on sliding scale insulin with Novolin moderate protocol with Accu- Cheks every 6 hours to maintain euglycemia Renal: Acute kidney injury History of nephrolithiasis Creatinine currently 1.5 stable. NS 42 ml per hour for 24 hours due to IV Contrast Monitor urine output Accurate I's and O's Avoid nephrotoxic drugs Heme: Normocytic anemia Chronic warfarin use History of DVTs bilateral lower extremities DC warfarin INR 7, PTT 102. Resume IV Heparin on IABP Continue aspirin/clopidogrel pre Dr. Monique Daily CBC/INRs ID: UTI Probable right thigh cellulitis Receive 1 dose of cefepime/azithromycin in ED. Noted allergy to cephalosporins and previous records Continue on levofloxacin, vancomycin, DC aztreonam. Zosyn 4.5 GM IV q6. ID consulted. General surgery consult appreciated Vascular surgery consult to rule out femoropopliteal bypass graft infection discussed with Dr. Quinn Blood cultures 2, sputum, urine Legionella and pneumococcal antigens and influenza all negative Follow-up on wound culture to right thigh. Urine culture growing pleomorphic gram-positive rods MSK: Lower extremity wound ulcers/chronic Probable right thigh residual abscess Right thigh fluid collection was drained by ED. Wound care evaluate and treat FEN: Hyponatremia Replace electrolytes as clinically indicated. Access - Utilize peripheral IV. Central line if indicated Prophylaxis - GI - lansoprazole - DVT - heparin drip on hold due to high PTT Level 3 Consult [facility] to assume care in am. Transfer to Step down Brigido Bucio MD Jul 20, 2017 17:20
[2017-07-20 18:17] LABS: PROTHROMBIN TIME - PATIENT 135.8 SEC (9.8-11.6)
--- NOTE | 2017-07-20 18:19 | HHI.PR ---
Subjective Subjective Notes I was asked to reevaluate patient regarding gallbladder disease. Her is at bedside. She denies current abdominal pain, nausea, or vomiting. She also denies these symptoms prior to admission. She states that she knew she had gallstones but has never been told in the past that she had pancreatitis. She had lipase 12,000 two days ago down to [address] a/p showed gallstones and evidence of chronic pancreatitis. Objective Vitals/I&O Vital Signs Date Time Temp Pulse Resp B/P (MAP) Pulse Ox O2 Delivery O2 Flow Rate FiO2 07/20/17 14:12 16 07/20/17 09:08 100 Nasal Cannula 1.00 07/20/17 04:00 98.0 73 165/69 (101) 07/19/17 15:40 36 Labs Laboratory Tests Test 07/19/17 23:10 07/20/17 07:08 07/20/17 12:36 07/20/17 17:47 Activated Partial Thromboplast Time 58.0 101.8 63.2 White Blood Count 9.5 Red Blood Count 2.90 Hemoglobin 9.2 Hematocrit 26.8 Mean Corpuscular Volume 92.1 Mean Corpuscular Hemoglobin 31.8 Mean Corpuscular Hemoglobin Concent 34.5 Red Cell Distribution Width 15.3 Platelet Count 269 Mean Platelet Volume 6.7 Neutrophils (%) (Auto) 84.1 Lymphocytes (%) (Auto) 7.9 Monocytes (%) (Auto) 7.6 Eosinophils (%) (Auto) 0.0 Basophils (%) (Auto) 0.4 Neutrophils # (Auto) 8.0 Lymphocytes # (Auto) 0.8 Monocytes # (Auto) 0.7 Eosinophils # (Auto) 0.0 Basophils # (Auto) 0.0 CBC Comment DIFF FINAL Differential Comment Prothrombin Time 83.7 Prothromb Time International Ratio 7.0 Blood Urea Nitrogen 50 Creatinine 1.49 Random Glucose 89 Total Protein 5.7 Albumin 2.3 Calcium Level 7.3 Magnesium Level 1.9 Alkaline Phosphatase 105 Aspartate Amino Transf (AST/SGOT) 19 Alanine Aminotransferase (ALT/SGPT) 20 Total Bilirubin 0.1 Sodium Level 136 Potassium Level 4.1 Chloride Level 108 Carbon Dioxide Level 15.5 Anion Gap 13 Estimat Glomerular Filtration Rate 34 Protein Corrected Calcium 8.1 Lipase 1852 Random Vancomycin Level 13.1 Date/Time Source Procedure Growth Status 07/18/17 03:30 Blood Peripheral Aerobic Blood Culture - Preliminary NO GROWTH IN 2 DAYS Resulted 07/18/17 03:30 Blood Peripheral Anaerobic Blood Culture - Preliminary NO GROWTH IN 2 DAYS Resulted 07/18/17 07:20 Nasal Aspirate Influenza Types A,B Antigen (MIRIAN) - Final NEGATIVE FOR FLU A AND B ANTIGEN.... Complete 07/18/17 18:00 Urine Catheterized Urine Legionella Antigen - Final PRESUMPTIVE NEGATIVE FOR LEGIONELLA P... Complete 07/18/17 18:00 Urine Catheterized Urine Streptococcus pneumoniae Antigen (M - Final PRESUMPTIVE NEGATIVE FOR STREPTOCOCCU... Complete 07/18/17 03:30 Wound Leg Gram Stain - Final Resulted 07/18/17 03:30 Wound Leg Wound Culture - Preliminary Resulted Radiology Last Impressions Lower Extremity Ultrasound 07/19/17 0000 Signed Impressions: Service Date/Time: Wednesday, July 19, 2017 12:04 - CONCLUSION: Abnormal thigh. MRI or CT with contrast would be of benefit for further evaluation. Abscess is suspected. Neftaly Esquivel MD FACR Head CT 07/18/17 0000 Signed Impressions: Service Date/Time: Tuesday, July 18, 2017 04:29 - CONCLUSION: Normal examination. Tha Shaw Jr., MD Chest X-Ray 07/18/17 0000 Signed Impressions: Service Date/Time: Tuesday, July 18, 2017 04:27 - CONCLUSION: 1. Cardiomegaly. 2. Bilateral pulmonary infiltrates. Tha Shaw Jr., MD Abdomen/Pelvis CT 07/18/17 0000 Signed Impressions: Service Date/Time: Wednesday, July 19, 2017 12:56 - CONCLUSION: 1. Small bilateral pleural effusions with associated atelectasis at the lung bases. 2. Distended gallbladder containing calcified gallstones with prominent common bile duct and mild central intrahepatic ductal dilatation. Distal CBD stone noted on ultrasound exam earlier today is not definitively visualized although the findings are concerning for at least partial distal CBD obstruction. 3. Coarse calcifications in the pancreatic head consistent with prior pancreatitis. Possible pancreatic cysts demonstrated on ultrasound are not definitively demonstrated although region of low density near the pancreatic head likely corresponds to dilated common bile duct. Overall evaluation is limited due to lack of IV contrast. 4. Findings consistent with medullary nephrocalcinosis. Lobo Kessler MD Abdomen Ultrasound 07/18/17 0000 Signed Impressions: Service Date/Time: Tuesday, July 18, 2017 17:05 - CONCLUSION: 1. Echogenic kidneys noted bilaterally with bilateral cysts. 2. Dilated common bile duct and choledocholith.. 3. Cholelithiasis. 4. The proximal pancreas is not well-visualized with areas suggesting pancreatic cysts and calcifications. 5. Small left pleural effusion. 6. Heterogeneous liver suggesting underlying hepatitis. Reno Ortez MD Narrative Exam NAD Abd: soft, mild RUQ ttp Right thigh chronic wound with surrounding induration A/P Assessment and Plan 78 yo F with respiratory failure, pancreatitis, gallstones, right foot and right thigh chronic wounds. She is asymptomatic from gallstone standpoint. Unsure if this is the cause of pancreatitis. It is odd that she has evidence of chronic pancreatitis with no prior history to her knowledge. ETOH and autoimmune or drug related could be other etiologies. I do not recommend cholecystectomy at this point but am happy to see her in office if she continues to improve for further consideration in the future. R foot wound being followed in wound clinic. Right thigh wound can also be followed in wound clinic. Has previous vascular surgery in [facility] and vascular surgery will see to give recommendations. I will sign off and be available as needed. Juan Jose Moya MD Jul 20, 2017 18:19
[2017-07-20 18:26] LABS: INTERNATIONAL NORMALIZED RATIO 11.1 RATIO
[2017-07-20] MEDS: MIRTAZAPINE 15 MG TAB PO SCH (20:43)
[2017-07-21] VITALS (19 sets, daily range): BP systolic 140–178; BP diastolic 66–144; PULSE 75–97; RESP 15–43; TEMP 97.9–99.1; O2SAT 96–100
[2017-07-21 00:22] LABS: APTT (PATIENT) 54.6 SEC (24.3-30.1); INTERNATIONAL NORMALIZED RATIO 2.9 RATIO; PROTHROMBIN TIME - PATIENT 33.4 SEC (9.8-11.6)
[2017-07-21] MEDS: CHLORHEXIDINE GLUCONATE 2 % 1 PACK (2 CLOTHS) TOP SCH (02:58)
[2017-07-21] MEDS: ACETAMINOPHEN/HYDROcodone 325 MG/5 MG TAB PO PRN ×3 (02:59→20:06)
[2017-07-21] MEDS: RESP: ALBUTEROL 2.5 MG/IPRATROPIUM 0.5 MG NEB (SCH) INH ×6 (03:50→23:52)
[2017-07-21] MEDS: methylPREDNISolone SOD SUCC 40 MG/1 ML VIAL IV PUSH SCH ×3 (04:35→21:25)
[2017-07-21] MEDS: hydrALAZINE HCL 20 MG/ML VIAL IV PUSH PRN (04:38)
[2017-07-21] MEDS: INSULIN NovoLIN REGULAR SUPPLEMENTAL SCALE SQ SCH ×3 (05:43→18:00)
[2017-07-21 05:46] LABS: INTERNATIONAL NORMALIZED RATIO 3.9 RATIO; PROTHROMBIN TIME - PATIENT 45.5 SEC (9.8-11.6)
[2017-07-21] MEDS: CHLORHEXIDINE 0.12% (ORAL KIT) 15 ML CUP MT SCH ×2 (08:00→20:00)
[2017-07-21] MEDS: FERROUS SULFATE 325 MG (65 MG ELEMENTAL IRON) TAB PO SCH (09:00)
[2017-07-21] MEDS: ASPIRIN 81 MG CHEW TAB CHEW SCH (09:00)
[2017-07-21] MEDS: DOCUSATE SODIUM 50 MG/SENNA 8.6 MG TAB PO SCH ×2 (09:00→21:25)
[2017-07-21] MEDS: ATORVASTATIN 20 MG TAB PO SCH (09:19)
[2017-07-21] MEDS: SERTRALINE HCL 50 MG TAB PO SCH (09:19)
[2017-07-21] MEDS: LANSOPRAZOLE SOLUTAB 30 MG TAB G-TUBE SCH (09:19)
[2017-07-21] MEDS: CLOPIDOGREL 75 MG TAB PO SCH (09:19)
[2017-07-21] MEDS: HYDROXYCHLOROQUINE SULFATE 200 MG TAB PO SCH (09:19)
[2017-07-21] MEDS: LEVOFLOXACIN 750 MG PREMIX INJ 150 ML IV SCH (09:19)
[2017-07-21] MEDS: METOPROLOL TARTRATE 50 MG TAB PO SCH ×2 (09:20→21:25)
[2017-07-21] MEDS: amLODIPine BESYLATE 5 MG TAB PO SCH (09:20)
[2017-07-21] MEDS: ARTIFICIAL TEARS OPTH SOLN 15 ML BTL EACH EYE SCH ×3 (09:20→18:00)
[2017-07-21] MEDS: SODIUM CHLORIDE 0.9% FLUSH 10 ML FLUSH IV FLUSH SCH ×2 (09:21→21:25)
[2017-07-21] MEDS: RESP: BUDESONIDE 0.5 MG/2 ML NEB NEB SCH ×2 (09:30→19:42)
--- NOTE | 2017-07-21 10:28 | PD.ID.CON ---
History of Present Illness Service ID Consult Requested By Reason for Consult Evaluation and Mment of Right thigh cellulitis possible Primary Care Physician Unknown Diagnoses: History of Present Illness is a 72-year-old CF with PMHx significant for CAD s.p coronary stent to the RCA 03/[address] Monique, chronic diastolic heart failure, pulmonary hypertension likely type III, tobaccoism with COPD, history of lower extremity DVTs, peripheral arterial disease status post stent to the iliac, nephrolithiasis, lupus, depression, chronic warfarin use, rheumatoid arthritis, hypertension and dyslipidemia. She presents to [facility] with acute onset at 3 AM of shortness of breath. She had been "feeling tired" for the past several days. denies patient had any anginal type pain, shortness of breath, orthopnea or claudication. Upon EMS arrival, patient was emergently orally intubated using 7.5 ET tube. Of note, patient has chronic wounds to her right ankle retained hardware 15 years ago and a chronic wound on her right thigh from a dermatologic biopsy by independent living advisor in [place] . This was drained by ED physician and has been sent for cultures. No signs of necrotizing fasciitis or spreading erythema. Patient was noted be quite hypothermic on admission temperature 90.5. Warming device placed. Chest x-ray admission revealed bilateral infiltrates versus pulmonary edema. Patient received 40 mg IV furosemide and was given 2000 mg cefepime and 500 mg azithromycin along with bronchodilator therapy. CT brain revealed no acute intracranial findings. EEG has normalized. Patient subsequently got extubated and at time of my evaluation she was still in [facility] extubated, on oxygen but able to talk and provide some history. UO ok. Not on pressors. No diarrhea. No rash. Awake, alert Ox3. Workup revealed she has a left thigh chronic wound with ? infection down to muscle. Due to concern for underlying vascular infection ID was consulted. Review of Systems ROS Limitations: Poor Historian Past Family Social History Allergies: Coded Allergies: No Known Allergies (Unverified , 07/18/17) Past Medical History Pulmonary hypertension ? Type III Coronary artery disease PVD Past Surgical History Right ankle wound Stent ? transhepatic biliary stent and iliac stent. RCA stent IVC filter ? Fem Pop bypass per records. Reported Medications I attest I obtained, reviewed or updated patients home meds and current meds. Reported Meds & Active Scripts Active Reported Iron (Ferrous Sulfate) 18 Mg Tab 65 Mg PO DAILY Mirtazapine 30 Mg Tab 30 Mg PO HS Lopressor (Metoprolol Tartrate) 50 Mg Tab 50 Mg PO BID Lisinopril 5 Mg Tab 5 Mg PO DAILY Plaquenil (Hydroxychloroquine Sulfate) 200 Mg Tab 200 Mg PO DAILY Take with food Plavix (Clopidogrel Bisulfate) 75 Mg Tab 75 Mg PO DAILY Vitamin D3 (Cholecalciferol) 1,000 Unit Cap Unknown Dose PO DAILY Symbicort Inh (Budesonide/Formoterol Fumarate) 160-4.5 Mcg/Act Aero 1 Puff INH Q12HR Lipitor (Atorvastatin Calcium) 20 Mg Tab 20 Mg PO HS Coumadin (Warfarin) 5 Mg Tab 5 Mg PO DAILY Sertraline (Sertraline HCl) 50 Mg Tab 50 Mg PO DAILY Aspirin Children's (Aspirin) 81 Mg Chew 81 Mg PO DAILY Active Ordered Medications Current Medications Medications (Trade) Dose Ordered Sig/Sarah Route Start Time Stop Time Status Last Admin (NS Flush) 2 ml UNSCH PRN IV FLUSH 07/18/17 07:00 (NS Flush) 2 ml BID IV FLUSH 07/18/17 09:00 07/21/17 09:21 (Prevacid Odt) 30 mg DAILY G-TUBE 07/18/17 09:00 07/21/17 09:19 (Tears Naturale Opth Soln) 1 drop TID EACH EYE 07/18/17 09:00 07/21/17 12:03 (Zofran Inj) 4 mg Q6H PRN IV PUSH 07/18/17 07:00 (Duoneb Neb) 1 ampule Q4HR NEB INH 07/18/17 08:00 07/21/17 15:52 (Albuterol Neb) 2.5 mg Q2HR NEB PRN INH 07/18/17 07:00 Miscellaneous Information 1 Q361D XX 07/18/17 07:00 (Chlorhexidine 2% Cloth) 3 pack Taper DAILY@04 TOP 07/19/17 04:00 07/15/18 03:59 07/21/17 02:58 (Chlorhexidine 2% Cloth) 3 pack UNSCH PRN TOP 07/18/17 07:00 (Juana-Colace) 1 tab BID PO 07/18/17 09:00 07/20/17 20:43 (Milk Of Magnesia Liq) 30 ml Q12H PRN PO 07/18/17 07:00 (Senokot) 17.2 mg Q12H PRN PO 07/18/17 07:00 (Dulcolax Supp) 10 mg DAILY PRN RECTAL 07/18/17 07:00 (Lactulose Liq) 30 ml DAILY PRN PO 07/18/17 07:00 (Peridex 0.12% Liq) 15 ml BID@08,20 MT 07/18/17 08:00 07/19/17 09:56 (Aspirin Chew) 81 mg DAILY CHEW 07/18/17 09:00 07/19/17 09:56 (Plavix) 75 mg DAILY PO 07/18/17 09:00 07/21/17 09:19 (Plaquenil) 200 mg DAILY PO 07/18/17 09:00 07/21/17 09:19 (Lipitor) 20 mg DAILY PO 07/18/17 09:00 07/21/17 09:19 (Remeron) 15 mg HS PO 07/18/17 21:00 07/20/17 20:43 (Zoloft) 50 mg DAILY PO 07/18/17 09:00 07/21/17 09:19 (Pulmicort Respule Neb) 0.5 mg Q12HR NEB NEB 07/18/17 08:00 07/21/17 09:30 (SoluMEDROL INJ) 40 mg Q8HR IV PUSH 07/18/17 14:00 07/21/17 14:15 (D50w (Vial) Inj) 50 ml UNSCH PRN IV PUSH 07/18/17 07:00 (Glucagon Inj) 1 mg UNSCH PRN OTHER 07/18/17 07:00 (NovoLIN R SUPPLEMENTAL SCALE) 1 Q6HR SQ 07/18/17 12:00 07/20/17 18:56 (Lopressor) 50 mg BID PO 07/18/17 09:00 07/21/17 09:20 (Ferrous Sulfate) 325 mg DAILY PO 07/18/17 09:00 07/19/17 09:55 Levofloxacin/ Dextrose 150 ml @ 100 mls/hr Q24H IV 07/18/17 10:00 07/21/17 09:19 Pharmacy Profile Note 0 ml @ 0 mls/hr UNSCH OTHER 07/18/17 08:00 (Tylenol 650 Mg/ 20 ml Liq) 650 mg Q6H PRN PO 07/18/17 13:30 (Apresoline Inj) 10 mg Q1H PRN IV PUSH 07/18/17 14:15 07/21/17 04:38 (Nitroglycerin 2% Oint) 2 inch Q6H PRN TOPICAL 07/18/17 14:15 (Norvasc) 5 mg DAILY PO 07/19/17 09:00 07/21/17 09:20 (Trandate Inj) 5 mg Q1H PRN IV PUSH 07/18/17 14:15 Heparin Sodium/ Dextrose 250 ml @ 5 mls/hr TITRATE PRN IV 07/19/17 16:00 07/20/17 00:51 (Harriman 5-325 Mg) 1 tab Q6H PRN PO 07/19/17 21:30 07/21/17 05:47 (Harriman 5-325 Mg) 2 tab Q6H PRN PO 07/20/17 00:44 07/21/17 02:59 Vancomycin HCl 750 mg/Sodium Chloride 257.5 ml @ 250 mls/hr Q24H IV 07/20/17 12:00 Future Hold 07/21/17 12:03 Miscellaneous Information SPECIFIC LAB TO BE DRAWN:VANCOMYCIN TROUGH DATE TO... ONCE ONCE .XX 07/22/17 11:45 07/22/17 11:46 (Santyl Oint) 1 applic DAILY TOPICAL 07/21/17 17:00 Family History Mother with heart disease. Father with cancer unknown type. Social History States she recently quit tobacco. 50 year pack history. Drinks 1 beer daily. No IV drug use or illicit drug use. Moved from [place] a year back. Lives with who has COPD and is oxygen dependent. Physical Exam Vital Signs Vital Signs Date Time Temp Pulse Resp B/P (MAP) Pulse Ox O2 Delivery O2 Flow Rate FiO2 07/21/17 09:31 100 Nasal Cannula 2.00 07/21/17 04:00 98.0 82 15 178/79 (112) 100 07/21/17 00:00 98.2 77 26 154/69 (97) 100 07/20/17 22:47 98.2 80 24 139/71 100 07/20/17 22:39 98.1 79 28 148/65 100 07/20/17 20:00 98.1 76 25 127/58 (81) 100 07/20/17 19:45 100 Nasal Cannula 2.00 07/20/17 18:00 74 07/20/17 16:00 98.5 65 24 127/57 (80) 100 07/20/17 16:00 63 07/20/17 14:12 16 07/20/17 14:00 61 07/20/17 12:00 98.2 63 24 144/67 (92) 100 07/20/17 12:00 63 Physical Exam GENERAL: This is a well-nourished, well-developed patient, in no apparent distress. SKIN: No rashes. Right arm with ecchymoses noted. Right forearm inner aspect with swelling, soft, with no bruit and no e.o infection. Cool and dry. Right groin with two ulcers one large with active discharge minimal amount. Induration noted. Non tender, No erythema. HEAD: Atraumatic. Normocephalic. No temporal or scalp tenderness. EYES: Pupils equal round and reactive. Extraocular motions intact. No scleral icterus. No injection or drainage. ENT: Nose without bleeding, purulent drainage or septal hematoma. Throat without erythema, tonsillar hypertrophy or exudate. Uvula midline. Airway patent. NECK: Trachea midline. Supple, nontender, no meningeal signs. CARDIOVASCULAR: Regular rate and rhythm without murmurs, gallops, or rubs. RESPIRATORY: Clear to auscultation. Breath sounds equal bilaterally. No wheezes , rales, or rhonchi. GASTROINTESTINAL: Abdomen soft, non-tender, nondistended. MUSCULOSKELETAL: NEUROLOGICAL: Awake and alert. Non focal. Psych cooperative, pleasant IV line sites with no e.o infection. Laboratory Laboratory Tests Test 07/20/17 12:36 07/20/17 17:47 07/20/17 23:55 07/21/17 05:10 Activated Partial Thromboplast Time 63.2 54.6 Prothrombin Time 135.8 33.4 45.5 Prothromb Time International Ratio 11.1 2.9 3.9 Date/Time Source Procedure Growth Status 07/18/17 03:30 Blood Peripheral Aerobic Blood Culture - Preliminary NO GROWTH IN 2 DAYS Resulted 07/18/17 03:30 Blood Peripheral Anaerobic Blood Culture - Preliminary NO GROWTH IN 2 DAYS Resulted 07/18/17 07:20 Nasal Aspirate Influenza Types A,B Antigen (MIRIAN) - Final NEGATIVE FOR FLU A AND B ANTIGEN.... Complete 07/18/17 18:00 Urine Catheterized Urine Legionella Antigen - Final PRESUMPTIVE NEGATIVE FOR LEGIONELLA P... Complete 07/18/17 18:00 Urine Catheterized Urine Streptococcus pneumoniae Antigen (M - Final PRESUMPTIVE NEGATIVE FOR STREPTOCOCCU... Complete 07/18/17 03:30 Wound Leg Gram Stain - Final Resulted 07/18/17 03:30 Wound Culture - Preliminary S. Aureus Mrsa Resulted Result Diagram: 07/20/17 0708 07/20/17 0708 Imaging Last Impressions Foot X-Ray 07/21/17 0000 Signed Impressions: Service Date/Time: Friday, July 21, 2017 16:00 - CONCLUSION: Osteopenia without definite fracture. Neftaly Esquivel MD FACR Chest X-Ray 07/20/17 0600 Signed Impressions: Service Date/Time: Thursday, July 20, 2017 04:12 - CONCLUSION: Interval extubation. Persistent bilateral infiltrates. Fortunato Pickett MD Lower Extremity CT 07/20/17 0000 Signed Impressions: Service Date/Time: Thursday, July 20, 2017 15:47 - CONCLUSION: Extensive soft tissue swelling involving the proximal thigh without discrete fluid collection or abscess. Status post femoral popliteal grafting and endovascular stenting. Aurelio Mccray MD Lower Extremity Ultrasound 07/19/17 0000 Signed Impressions: Service Date/Time: Wednesday, July 19, 2017 12:04 - CONCLUSION: Abnormal thigh. MRI or CT with contrast would be of benefit for further evaluation. Abscess is suspected. Neftaly Esquivel MD FACR Cholangiopancreatography MRI 07/19/17 0000 Signed Impressions: Service Date/Time: Wednesday, July 19, 2017 21:49 - CONCLUSION: 1. Cholelithiasis without evidence of common duct stone 2. Dilatation and irregularity of the pancreatic duct characteristic of chronic pancreatitis Dk Berger MD Head CT 07/18/17 0000 Signed Impressions: Service Date/Time: Tuesday, July 18, 2017 04:29 - CONCLUSION: Normal examination. Tha Shaw Jr., MD Abdomen/Pelvis CT 07/18/17 0000 Signed Impressions: Service Date/Time: Wednesday, July 19, 2017 12:56 - CONCLUSION: 1. Small bilateral pleural effusions with associated atelectasis at the lung bases. 2. Distended gallbladder containing calcified gallstones with prominent common bile duct and mild central intrahepatic ductal dilatation. Distal CBD stone noted on ultrasound exam earlier today is not definitively visualized although the findings are concerning for at least partial distal CBD obstruction. 3. Coarse calcifications in the pancreatic head consistent with prior pancreatitis. Possible pancreatic cysts demonstrated on ultrasound are not definitively demonstrated although region of low density near the pancreatic head likely corresponds to dilated common bile duct. Overall evaluation is limited due to lack of IV contrast. 4. Findings consistent with medullary nephrocalcinosis. Lobo Kessler MD Abdomen Ultrasound 07/18/17 0000 Signed Impressions: Service Date/Time: Tuesday, July 18, 2017 17:05 - CONCLUSION: 1. Echogenic kidneys noted bilaterally with bilateral cysts. 2. Dilated common bile duct and choledocholith.. 3. Cholelithiasis. 4. The proximal pancreas is not well-visualized with areas suggesting pancreatic cysts and calcifications. 5. Small left pleural effusion. 6. Heterogeneous liver suggesting underlying hepatitis. Reno Ortez MD Assessment and Plan Assessment and Plan Chronic thigh wound/? abscess partially treated with outpt oral abx. r.o Rt thigh cellulitis rule out Fem Pop by pass related infection (Pseudoaneurysm infection) S/p outpt derm biopsy at office. Records requested ? Malignancy ? infection or both. PVD CAD Gall stones. Lab evidence of elevated Lipase ? Pancreatitis. Clinically no abd pain per pt. Ex smoker: counseled to keep abstaining. Recs: Continue Levaquin continue Vanco IV for now. Continue wound care instructions. Ct thigh noted will d.w Surgery and IR if connected to underlying vasculature. WBC scan. The CTA ordered by will help rule out aneursym related infection. Chronic thigh wound could be infection or non infection related. WBC scan recruitment will help confirm infection. If WBC scan negative and the outpt biopsy was cancer will need to r/o deeper cancer spread locally. D.w , pt and spouse. Amee Polanco MD Jul 21, 2017 10:28
[2017-07-21] MEDS: VANCOMYCIN INJ 750 MG in SODIUM CHLOR 0.9% 250 ML INJ 250 ML IV SCH (12:03)
--- NOTE | 2017-07-21 14:38 | HHI.IDPN ---
Subjective Subjective Remarks Pt seen and examined. Detailed note to follow Allergies: Coded Allergies: No Known Allergies (Unverified , 07/18/17) Objective . Vital Signs Date Time Temp Pulse Resp B/P (MAP) Pulse Ox O2 Delivery O2 Flow Rate FiO2 07/21/17 09:31 100 Nasal Cannula 2.00 07/21/17 04:00 98.0 82 15 178/79 (112) 100 07/21/17 00:00 98.2 77 26 154/69 (97) 100 07/20/17 22:47 98.2 80 24 139/71 100 07/20/17 22:39 98.1 79 28 148/65 100 07/20/17 20:00 98.1 76 25 127/58 (81) 100 07/20/17 19:45 100 Nasal Cannula 2.00 07/20/17 18:00 74 07/20/17 16:00 98.5 65 24 127/57 (80) 100 07/20/17 16:00 63 07/21/17 07/21/17 07/22/17 15:00 23:00 07:00 Intake Total 364 ml Balance 364 ml IV Total 364 ml . Laboratory Tests Test 07/19/17 17:49 07/20/17 07:08 White Blood Count 15.6 TH/MM3 9.5 TH/MM3 Red Blood Count 2.91 MIL/MM3 2.90 MIL/MM3 Hemoglobin 9.2 GM/DL 9.2 GM/DL Hematocrit 27.1 % 26.8 % Mean Corpuscular Volume 92.9 FL 92.1 FL Mean Corpuscular Hemoglobin 31.6 PG 31.8 PG Mean Corpuscular Hemoglobin Concent 34.0 % 34.5 % Red Cell Distribution Width 15.5 % 15.3 % Platelet Count 282 TH/MM3 269 TH/MM3 Mean Platelet Volume 7.2 FL 6.7 FL Neutrophils (%) (Auto) 84.1 % Lymphocytes (%) (Auto) 7.9 % Monocytes (%) (Auto) 7.6 % Eosinophils (%) (Auto) 0.0 % Basophils (%) (Auto) 0.4 % Neutrophils # (Auto) 8.0 TH/MM3 Lymphocytes # (Auto) 0.8 TH/MM3 Monocytes # (Auto) 0.7 TH/MM3 Eosinophils # (Auto) 0.0 TH/MM3 Basophils # (Auto) 0.0 TH/MM3 CBC Comment DIFF FINAL Differential Comment Laboratory Tests Test 07/20/17 07:08 Blood Urea Nitrogen 50 MG/DL Creatinine 1.49 MG/DL Random Glucose 89 MG/DL Total Protein 5.7 GM/DL Albumin 2.3 GM/DL Calcium Level 7.3 MG/DL Magnesium Level 1.9 MG/DL Alkaline Phosphatase 105 U/L Aspartate Amino Transf (AST/SGOT) 19 U/L Alanine Aminotransferase (ALT/SGPT) 20 U/L Total Bilirubin 0.1 MG/DL Sodium Level 136 MEQ/L Potassium Level 4.1 MEQ/L Chloride Level 108 MEQ/L Carbon Dioxide Level 15.5 MEQ/L Anion Gap 13 MEQ/L Estimat Glomerular Filtration Rate 34 ML/MIN Protein Corrected Calcium 8.1 MG/DL Lipase 1852 U/L Microbiology Date/Time Source Procedure Growth Status 07/18/17 18:00 Urine Catheterized Urine Legionella Antigen - Final PRESUMPTIVE NEGATIVE FOR LEGIONELLA P... Complete 07/18/17 18:00 Urine Catheterized Urine Streptococcus pneumoniae Antigen (M - Final PRESUMPTIVE NEGATIVE FOR STREPTOCOCCU... Complete Amee Polanco MD Jul 21, 2017 14:38
--- NOTE | 2017-07-21 15:56 | PD.VS.CON ---
History of Present Illness Chief Complaint: Possible R- fem pop bypass site infection Consult Requested by: Dr. Bucio History of Present Illness Mrs. Aguirre is a 72/W/F PMH of CAD s/p stent to the RCA 03/27 (Dr. Monique), chronic diastolic heart failure, COPD, DVTs, peripheral arterial disease (Iliac stent, R fem pop bypass 2014), nephrolithiasis, lupus, depression, chronic warfarin use rheumatoid arthritis, hypertension and dyslipidemia. Pt arrived to the ED w/ c/o SOB with AMS (07/18/17) pt was in respiratory distress and emergently intubated. Pt was found to have chronic wounds to her right ankle retained hardware 15 years ago and a chronic wound on her right thigh from a dermatologic biopsy ( over a year per pt) (Farzana Gallegos) Past/Family/Social History Past Medical History COPD HTN CAD s/p stent to the RCA 03/27 (Dr. 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 (Farzana Gallegos) Home Medications Reported Medications Ferrous Sulfate (Iron) 18 Mg Tab, 65 MG PO DAILY 07/18/17 Mirtazapine (Mirtazapine) 30 Mg Tab, 30 MG PO HS for Depression Control, #30 TAB 0 Refills 07/18/17 Metoprolol Tartrate (Lopressor) 50 Mg Tab, 50 MG PO BID, #60 TAB 0 Refills 07/18/17 Lisinopril (Lisinopril) 5 Mg Tab, 5 MG PO DAILY for Blood Pressure Management, # 30 TAB 0 Refills 07/18/17 Hydroxychloroquine (Plaquenil) 200 Mg Tab, 200 MG PO DAILY, #30 TAB 0 Refills Take with food 07/18/17 Clopidogrel (Plavix) 75 Mg Tab, 75 MG PO DAILY for Blood Clot Prevention, #30 TAB 0 Refills 07/18/17 Cholecalciferol (Vitamin D3) 1,000 Unit Cap, PO DAILY for Nutritional Supplement , #1 BOTTLE 0 Refills 07/18/17 Budesonide-Formoterol Inh (Symbicort Inh) 160-4.5 Mcg/Act Aero, 1 PUFF INH Q12HR , #1 INHALER 0 Refills 07/18/17 Atorvastatin (Lipitor) 20 Mg Tab, 20 MG PO HS for Cholesterol Management, #30 TAB 0 Refills 07/18/17 Warfarin (Coumadin) 5 Mg Tab, 5 MG PO DAILY for Blood Clot Prevention, #30 TAB 0 Refills 07/18/17 Sertraline (Sertraline) 50 Mg Tab, 50 MG PO DAILY, #30 TAB 0 Refills 07/18/17 Aspirin (Aspirin Children's) 81 Mg Chew, 81 MG PO DAILY, TAB 0 Refills 07/18/17 Coded Allergies: No Known Allergies (Unverified , 07/18/17) Physical Exam Vitals/I&O Date Time Temp Pulse Resp B/P (MAP) Pulse Ox O2 Delivery O2 Flow Rate FiO2 07/21/17 09:31 100 Nasal Cannula 2.00 07/21/17 04:00 98.0 82 15 178/79 (112) 100 07/21/17 00:00 98.2 77 26 154/69 (97) 100 07/20/17 22:47 98.2 80 24 139/71 100 07/20/17 22:39 98.1 79 28 148/65 100 07/20/17 20:00 98.1 76 25 127/58 (81) 100 07/20/17 19:45 100 Nasal Cannula 2.00 07/20/17 18:00 74 07/20/17 16:00 98.5 65 24 127/57 (80) 100 07/20/17 16:00 63 07/21/17 07/21/17 07/21/17 07:00 15:00 23:00 Intake Total 697 ml 364 ml Output Total 975 ml Balance -278 ml 364 ml Neuro: Pt alert and oriented x3 [id number] Heart: +S1,S2 Lungs: resp even Abdomen: S/NT Vascular: Palpable R/L femoral pulses Non palpable L/R DP/PT Chronic wound to Right thigh (over 1Yr per pt) Right foot ulcerations medial/lateral aspect (Farzana Gallegos) Laboratory Tests Test 07/20/17 17:47 07/20/17 23:55 07/21/17 05:10 Prothrombin Time 135.8 33.4 45.5 Prothromb Time International Ratio 11.1 2.9 3.9 Activated Partial Thromboplast Time 54.6 Date/Time Source Procedure Growth Status 07/18/17 03:30 Blood Peripheral Aerobic Blood Culture - Preliminary NO GROWTH IN 3 DAYS Resulted 07/18/17 03:30 Blood Peripheral Anaerobic Blood Culture - Preliminary NO GROWTH IN 3 DAYS Resulted 07/18/17 07:20 Nasal Aspirate Influenza Types A,B Antigen (MIRIAN) - Final NEGATIVE FOR FLU A AND B ANTIGEN.... Complete 07/18/17 18:00 Urine Catheterized Urine Legionella Antigen - Final PRESUMPTIVE NEGATIVE FOR LEGIONELLA P... Complete 07/18/17 18:00 Urine Catheterized Urine Streptococcus pneumoniae Antigen (M - Final PRESUMPTIVE NEGATIVE FOR STREPTOCOCCU... Complete 07/18/17 03:30 Wound Leg Gram Stain - Final Resulted 07/18/17 03:30 Wound Culture - Preliminary S. Aureus Mrsa Resulted Last 48 hours Impressions Chest X-Ray 07/20/17 0600 Signed Impressions: Service Date/Time: Thursday, July 20, 2017 04:12 - CONCLUSION: Interval extubation. Persistent bilateral infiltrates. Fortunato Pickett MD Lower Extremity CT 07/20/17 0000 Signed Impressions: Service Date/Time: Thursday, July 20, 2017 15:47 - CONCLUSION: Extensive soft tissue swelling involving the proximal thigh without discrete fluid collection or abscess. Status post femoral popliteal grafting and endovascular stenting. Aurelio Mccray MD (Farzana Gallegos) Assessment and Plan Assessment: (1) PAD (peripheral artery disease) Status: Chronic (2) Wounds, multiple open, lower extremity Status: Acute (3) COPD (chronic obstructive pulmonary disease) Status: Chronic Plan Pt extubated w/o c/o SOB Pt evaluated for probable R fem pop bypass infection Reviewed imagining studies Right fem pop bypass does not appear infectious per radiology studies/probable occlusion Plan Ordered XR right foot (hardware evaluation) Continue aggressive wound care Will review all studies to determine next plan of action Farzana AQUINO [facility] [phone] (Farzana Gallegos) Plan Pt seen and examined with Mrs. Gallegos. Pt with R medial thigh wound and R medial and lateral malleolar wounds, chronic. PAD and what appears to be occluded R LE bypass. On my review of the CT, her bypass is not infected. The wounds are stable and don't appear to be driving her clinical course. May have infected R ankle/foot hardware. Will follow with aggressive wound care and if improves clinically, will schedule R LE angiogram for evaluation of revascularization. Gonzalez Larson MD [facility] tag clerk [facility] - Heart and Vascular Surgery at [facility] [phone] (Gonzalez Larson MD) Problem Qualifiers (1) Wounds, multiple open, lower extremity: Qualified Codes: S81.801D - Unspecified open wound, right lower leg, subsequent encounter (2) COPD (chronic obstructive pulmonary disease): Qualified Codes: J44.9 - Chronic obstructive pulmonary disease, unspecified Farzana Gallegos Jul 21, 2017 15:56 Gonzalez Larson MD Jul 21, 2017 16:01
--- NOTE | 2017-07-21 17:12 | RADRPT ---
EXAM DATE/TIME: 07/21/2017 00:00 [facility] COMPARISON: No previous studies available for comparison. INDICATIONS : Peripheral artery disease, congestive heart failure TECHNIQUE: Five-station segmental examination of the lower extremities was performed. Pulsed-cuff waveform tracings and pressures were recorded. Ankle-brachial indices and toe-brachial indices were calculated. PRESSURES (mmHg): Brachial (arm): Left 149 Lower Thigh: Right 131 Left 87 Calf: Right CNO>240 Left 174 Ankle: Right CNO>240 Left CNO>240 Toe: Right 17 Left 28 CESIA: Right CNO Left CNO TBI: Right 0.11 Left 0.19 PULSED CUFF WAVEFORMS: Demonstrate normal amplitude bilaterally. CONCLUSION: 1. Nondiagnostic evaluation with findings of small vessel disease bilaterally. CT angiography of the abdominal aorta and lower extremities is recommended for further evaluation if clinically indicated. Dk Berger MD on July 21, 2017 at 17:10 Board Certified Radiologist. This report was verified electronically.
--- NOTE | 2017-07-21 17:17 | RADRPT ---
EXAM DATE/TIME: 07/21/2017 16:00 [facility] COMPARISON: No previous studies available for comparison. INDICATIONS : Right foot pain and swelling. MEDICAL HISTORY : Deep venous thrombosis. Lupus. Hypertension. SURGICAL HISTORY : None. ENCOUNTER: Subsequent ACUITY: 3 days PAIN SCORE: 1/10 LOCATION: Right foot. FINDINGS: The bones are osteopenic consistent with disuse osteopenia. Tibiotalar fusion is evide nt with talar collapse. Extensive digital artery calcifications are noted. Fracture is not appreciated. Osteopenia makes detection of subtle nondisplaced fracture difficult. CONCLUSION: Osteopenia without definite fracture. Neftaly Esquivel MD FACR on July 21, 2017 at 17:06 Board Certified Radiologist. This report was verified electronically.
[2017-07-21] MEDS: SODIUM CHLOR 0.9% 1000 ML INJ 1,000 ML IV SCH (18:25)
[2017-07-21] MEDS: COLLAGENASE OINT 30 GM TUBE TOPICAL SCH (18:25)
--- NOTE | 2017-07-21 18:50 | PD.CONS ---
HPI Service [facility] Hospitalists Consult Requested By Dr. Bucio Reason for Consult assume care Primary Care Physician Unknown Diagnoses: (1) Acute hypoxemic respiratory failure (2) Chronic anticoagulation (3) Hyponatremia (4) Normocytic anemia (5) Wounds, multiple open, lower extremity (6) COPD (chronic obstructive pulmonary disease) (7) Pulmonary hypertension due to COPD (8) Coronary artery disease (9) Depression (10) Dyslipidemia (11) Hypertension (12) Lupus (13) Lower leg DVT (deep venous thromboembolism), chronic (14) Nephrolithiasis (15) Peripheral arterial occlusive disease (16) Rheumatoid arthritis (17) Hypothermia History of Present Illness Per prior charting: This is a 72-year-old female. Name is Raúl Aguirre. Date of admission 07/18/2017. Past medical history includes coronary disease status post stent to the RCA 03/[address] Monique, chronic diastolic heart failure, pulmonary hypertension likely type III, ongoing tobaccoism with COPD, history of lower extremity DVTs, peripheral arterial disease status post stent to the iliac, nephrolithiasis, lupus, depression, chronic warfarin use rheumatoid arthritis, hypertension and dyslipidemia. She presents to [facility] with acute onset at 3 AM of shortness of breath. She had been "feeling tired" for the past several days. denies patient had any anginal type pain, shortness of breath, orthopnea or claudication. Upon EMS arrival, patient was emergently orally intubated using 7.5 ET tube. Of note, patient has chronic wounds to her right ankle retained hardware 15 years ago and a chronic wound on her right thigh from a dermatologic biopsy by conservation agent in [facility]. This was drained by ED physician and has been sent for cultures. No signs of necrotizing fasciitis or spreading erythema at this time Patient was noted be quite hypothermic on admission temperature 90.5. Warming device placed. Chest x-ray admission revealed bilateral infiltrates versus pulmonary edema. Patient received 40 mg IV furosemide and was given 2000 mg cefepime and 500 mg azithromycin along with bronchodilator therapy. CT brain revealed no acute intracranial findings. EEG has normalized. She is currently seen somewhat hypertensive in room E 33. She is arousable on the ventilator but currently not falling commands on a propofol drip. 07/19: Remains intubated lightly sedated. Suspected abscess right upper inner thigh, on US. CT abdomen pelvis -Distended gallbladder containing calcified gallstones with prominent common bile duct and mild central intrahepatic ductal dilatation. Distal CBD stone noted on ultrasound exam is not definitively visualized. Findings concerning for at least partial distal CBD obstruction. 07/20: Extubated 07/20, tolerating well. INR 7, PTT 102 today. Heparin held Coumadin already on hold. CT of R thigh to rule out abscess showed Extensive soft tissue swelling involving the proximal thigh without discrete fluid collection or abscess. I have placed a vascular surgery consult to rule out femoropopliteal graft infection 07/21: Hospitalist consulted to assume care. Patient awake and alert in no acute distress. Patient reports she had sudden onset of SOB 07/18/17 which prompted her to call 911. Patient denies chest pain, weight gain, lower extremity edema, fevers, chills, N/V or change from her normal health status prior to 07/18/17. Patient reports she feels well at this time, offers no specific complaints. Patient had and episode 05/27 where she was admitted with SOB and required BiPap and diuresis. Review of Systems Constitutional: COMPLAINS OF: Fatigue, DENIES: Fever, Chills Eyes: DENIES: Blurred vision, Diplopia, Vision loss Respiratory: COMPLAINS OF: Shortness of breath, DENIES: Cough, Sputum production Cardiovascular: DENIES: Chest pain, Palpitations, Dyspnea on Exertion, Lower Extremity Edema Gastrointestinal: DENIES: Abdominal pain, Constipation, Diarrhea, Nausea Neurologic: DENIES: Abnormal gait, Localized weakness, Speech Problems Psychiatric: COMPLAINS OF: Anxiety, DENIES: Confusion, Depression Past Family Social History Past Medical History Coronary artery disease, recent RCA stent on 04/05/[address] Quach Rheumatoid arthritis ? Lupus Right lower extremity DVT, on warfarin History kidney stones Probable COPD Hypertension Active tobacco use Past Surgical History Cardiac catheterization with RCA stent 04/05/17 Multiple lower extremity stents for PAD Reported Medications Iron (Ferrous Sulfate) 18 Mg Tab 65 Mg PO DAILY Mirtazapine 30 Mg Tab 30 Mg PO HS Lopressor (Metoprolol Tartrate) 50 Mg Tab 50 Mg PO BID Lisinopril 5 Mg Tab 5 Mg PO DAILY Plaquenil (Hydroxychloroquine Sulfate) 200 Mg Tab 200 Mg PO DAILY Take with food Plavix (Clopidogrel Bisulfate) 75 Mg Tab 75 Mg PO DAILY Vitamin D3 (Cholecalciferol) 1,000 Unit Cap Unknown Dose PO DAILY Symbicort Inh (Budesonide/Formoterol Fumarate) 160-4.5 Mcg/Act Aero 1 Puff INH Q12HR Lipitor (Atorvastatin Calcium) 20 Mg Tab 20 Mg PO HS Coumadin (Warfarin) 5 Mg Tab 5 Mg PO DAILY Sertraline (Sertraline HCl) 50 Mg Tab 50 Mg PO DAILY Aspirin Children's (Aspirin) 81 Mg Chew 81 Mg PO DAILY Allergies: Coded Allergies: No Known Allergies (Unverified , 07/18/17) Active Ordered Medications Current Medications Medications (Trade) Dose Ordered Sig/Sarah Route Start Time Stop Time Status Last Admin (NS Flush) 2 ml UNSCH PRN IV FLUSH 07/18/17 07:00 (NS Flush) 2 ml BID IV FLUSH 07/18/17 09:00 07/21/17 09:21 (Prevacid Odt) 30 mg DAILY G-TUBE 07/18/17 09:00 07/21/17 09:19 (Tears Naturale Opth Soln) 1 drop TID EACH EYE 07/18/17 09:00 07/21/17 12:03 (Zofran Inj) 4 mg Q6H PRN IV PUSH 07/18/17 07:00 (Duoneb Neb) 1 ampule Q4HR NEB INH 07/18/17 08:00 07/21/17 15:52 (Albuterol Neb) 2.5 mg Q2HR NEB PRN INH 07/18/17 07:00 Miscellaneous Information 1 Q361D XX 07/18/17 07:00 (Chlorhexidine 2% Cloth) 3 pack Taper DAILY@04 TOP 07/19/17 04:00 07/15/18 03:59 07/21/17 02:58 (Chlorhexidine 2% Cloth) 3 pack UNSCH PRN TOP 07/18/17 07:00 (Juana-Colace) 1 tab BID PO 07/18/17 09:00 07/20/17 20:43 (Milk Of Magnesia Liq) 30 ml Q12H PRN PO 07/18/17 07:00 (Senokot) 17.2 mg Q12H PRN PO 07/18/17 07:00 (Dulcolax Supp) 10 mg DAILY PRN RECTAL 07/18/17 07:00 (Lactulose Liq) 30 ml DAILY PRN PO 07/18/17 07:00 (Peridex 0.12% Liq) 15 ml BID@08,20 MT 07/18/17 08:00 07/19/17 09:56 (Aspirin Chew) 81 mg DAILY CHEW 07/18/17 09:00 07/19/17 09:56 (Plavix) 75 mg DAILY PO 07/18/17 09:00 07/21/17 09:19 (Plaquenil) 200 mg DAILY PO 07/18/17 09:00 07/21/17 09:19 (Lipitor) 20 mg DAILY PO 07/18/17 09:00 07/21/17 09:19 (Remeron) 15 mg HS PO 07/18/17 21:00 07/20/17 20:43 (Zoloft) 50 mg DAILY PO 07/18/17 09:00 07/21/17 09:19 (Pulmicort Respule Neb) 0.5 mg Q12HR NEB NEB 07/18/17 08:00 07/21/17 09:30 (SoluMEDROL INJ) 40 mg Q8HR IV PUSH 07/18/17 14:00 07/21/17 14:15 (D50w (Vial) Inj) 50 ml UNSCH PRN IV PUSH 07/18/17 07:00 (Glucagon Inj) 1 mg UNSCH PRN OTHER 07/18/17 07:00 (NovoLIN R SUPPLEMENTAL SCALE) 1 Q6HR SQ 07/18/17 12:00 07/20/17 18:56 (Lopressor) 50 mg BID PO 07/18/17 09:00 07/21/17 09:20 (Ferrous Sulfate) 325 mg DAILY PO 07/18/17 09:00 07/19/17 09:55 Levofloxacin/ Dextrose 150 ml @ 100 mls/hr Q24H IV 07/18/17 10:00 07/21/17 09:19 Pharmacy Profile Note 0 ml @ 0 mls/hr UNSCH OTHER 07/18/17 08:00 (Tylenol 650 Mg/ 20 ml Liq) 650 mg Q6H PRN PO 07/18/17 13:30 (Apresoline Inj) 10 mg Q1H PRN IV PUSH 07/18/17 14:15 07/21/17 04:38 (Nitroglycerin 2% Oint) 2 inch Q6H PRN TOPICAL 07/18/17 14:15 (Norvasc) 5 mg DAILY PO 07/19/17 09:00 07/21/17 09:20 (Trandate Inj) 5 mg Q1H PRN IV PUSH 07/18/17 14:15 Heparin Sodium/ Dextrose 250 ml @ 5 mls/hr TITRATE PRN IV 07/19/17 16:00 07/20/17 00:51 ([place] 5-325 Mg) 1 tab Q6H PRN PO 07/19/17 21:30 07/21/17 05:47 ([place] 5-325 Mg) 2 tab Q6H PRN PO 07/20/17 00:44 07/21/17 02:59 Vancomycin HCl 750 mg/Sodium Chloride 257.5 ml @ 250 mls/hr Q24H IV 07/20/17 12:00 Future Hold 07/21/17 12:03 Miscellaneous Information SPECIFIC LAB TO BE DRAWN:VANCOMYCIN TROUGH DATE TO... ONCE ONCE .XX 07/22/17 11:45 07/22/17 11:46 (Santyl Oint) 1 applic DAILY TOPICAL 07/21/17 17:00 07/21/17 18:25 Family History Reviewed and noncontributory Social History Smokes one pack of cigarettes per day Physical Exam Vital Signs Vital Signs Date Time Temp Pulse Resp B/P (MAP) Pulse Ox O2 Delivery O2 Flow Rate FiO2 07/21/17 16:00 90 07/21/17 16:00 90 24 158/95 (116) 96 07/21/17 15:00 79 28 156/81 (106) 97 07/21/17 15:00 78 07/21/17 14:00 79 29 167/72 (103) 98 07/21/17 14:00 78 07/21/17 13:00 75 33 149/68 (95) 100 07/21/17 13:00 75 07/21/17 12:00 75 07/21/17 12:00 99.0 75 43 140/69 (92) 100 07/21/17 11:00 80 35 163/72 (102) 98 07/21/17 11:00 80 07/21/17 10:00 93 07/21/17 10:00 93 27 176/74 (108) 99 07/21/17 10:00 93 27 176/74 (108) 99 07/21/17 09:31 100 Nasal Cannula 2.00 07/21/17 09:22 93 07/21/17 09:00 97 07/21/17 09:00 97 29 98 07/21/17 09:00 97 35 177/144 (155) 99 07/21/17 08:00 97.9 93 25 149/66 (93) 98 07/21/17 08:00 93 07/21/17 04:00 98.0 82 15 178/79 (112) 100 07/21/17 00:00 98.2 77 26 154/69 (97) 100 07/20/17 22:47 98.2 80 24 139/71 100 07/20/17 22:39 98.1 79 28 148/65 100 07/20/17 20:00 98.1 76 25 127/58 (81) 100 07/20/17 19:45 100 Nasal Cannula 2.00 Physical Exam GENERAL: This is a frail elderly 72 year old female patient, in no apparent distress. EYES: Extraocular motions intact. No scleral icterus. No injection or drainage. ENT: Nose without bleeding, purulent drainage or septal hematoma. Throat without erythema, tonsillar hypertrophy or exudate. Uvula midline. Airway patent. CARDIOVASCULAR: Regular rate and rhythm without murmurs, gallops, or rubs. RESPIRATORY: Clear to auscultation. Breath sounds equal bilaterally. No wheezes , rales, or rhonchi. GASTROINTESTINAL: Abdomen soft, non-tender, nondistended. No hepato-splenomegaly , or palpable masses. No guarding. MUSCULOSKELETAL: Extremities without clubbing, cyanosis, or edema. No joint tenderness, effusion, or edema noted. No calf tenderness. Negative Homans sign bilaterally. NEUROLOGICAL: Awake and alert. Cranial nerves II through XII intact. Motor and sensory grossly within normal limits. Five out of 5 muscle strength in all muscle groups. Normal speech. Laboratory Laboratory Tests Test 07/20/17 23:55 07/21/17 05:10 Prothrombin Time 33.4 45.5 Prothromb Time International Ratio 2.9 3.9 Activated Partial Thromboplast Time 54.6 Date/Time Source Procedure Growth Status 07/18/17 03:30 Blood Peripheral Aerobic Blood Culture - Preliminary NO GROWTH IN 3 DAYS Resulted 07/18/17 03:30 Blood Peripheral Anaerobic Blood Culture - Preliminary NO GROWTH IN 3 DAYS Resulted 07/18/17 07:20 Nasal Aspirate Influenza Types A,B Antigen (MIRIAN) - Final NEGATIVE FOR FLU A AND B ANTIGEN.... Complete 07/18/17 18:00 Urine Catheterized Urine Legionella Antigen - Final PRESUMPTIVE NEGATIVE FOR LEGIONELLA P... Complete 07/18/17 18:00 Urine Catheterized Urine Streptococcus pneumoniae Antigen (M - Final PRESUMPTIVE NEGATIVE FOR STREPTOCOCCU... Complete 07/18/17 03:30 Wound Leg Gram Stain - Final Resulted 07/18/17 03:30 Wound Culture - Preliminary S. Aureus Mrsa Resulted Result Diagram: 07/20/17 0708 07/20/17 0708 Imaging Last Impressions Foot X-Ray 07/21/17 0000 Signed Impressions: Service Date/Time: Friday, July 21, 2017 16:00 - CONCLUSION: Osteopenia without definite fracture. Neftaly Esquivel MD FACR Chest X-Ray 07/20/17 0600 Signed Impressions: Service Date/Time: Thursday, July 20, 2017 04:12 - CONCLUSION: Interval extubation. Persistent bilateral infiltrates. Fortunato Pickett MD Lower Extremity CT 07/20/17 0000 Signed Impressions: Service Date/Time: Thursday, July 20, 2017 15:47 - CONCLUSION: Extensive soft tissue swelling involving the proximal thigh without discrete fluid collection or abscess. Status post femoral popliteal grafting and endovascular stenting. Aurelio Mccray MD Lower Extremity Ultrasound 07/19/17 0000 Signed Impressions: Service Date/Time: Wednesday, July 19, 2017 12:04 - CONCLUSION: Abnormal thigh. MRI or CT with contrast would be of benefit for further evaluation. Abscess is suspected. Neftaly Esquivel MD FACR Cholangiopancreatography MRI 07/19/17 0000 Signed Impressions: Service Date/Time: Wednesday, July 19, 2017 21:49 - CONCLUSION: 1. Cholelithiasis without evidence of common duct stone 2. Dilatation and irregularity of the pancreatic duct characteristic of chronic pancreatitis Dk Berger MD Head CT 07/18/17 0000 Signed Impressions: Service Date/Time: Tuesday, July 18, 2017 04:29 - CONCLUSION: Normal examination. Tha Shaw Jr., MD Abdomen/Pelvis CT 07/18/17 0000 Signed Impressions: Service Date/Time: Wednesday, July 19, 2017 12:56 - CONCLUSION: 1. Small bilateral pleural effusions with associated atelectasis at the lung bases. 2. Distended gallbladder containing calcified gallstones with prominent common bile duct and mild central intrahepatic ductal dilatation. Distal CBD stone noted on ultrasound exam earlier today is not definitively visualized although the findings are concerning for at least partial distal CBD obstruction. 3. Coarse calcifications in the pancreatic head consistent with prior pancreatitis. Possible pancreatic cysts demonstrated on ultrasound are not definitively demonstrated although region of low density near the pancreatic head likely corresponds to dilated common bile duct. Overall evaluation is limited due to lack of IV contrast. 4. Findings consistent with medullary nephrocalcinosis. Lobo Kessler MD Abdomen Ultrasound 07/18/17 0000 Signed Impressions: Service Date/Time: Tuesday, July 18, 2017 17:05 - CONCLUSION: 1. Echogenic kidneys noted bilaterally with bilateral cysts. 2. Dilated common bile duct and choledocholith.. 3. Cholelithiasis. 4. The proximal pancreas is not well-visualized with areas suggesting pancreatic cysts and calcifications. 5. Small left pleural effusion. 6. Heterogeneous liver suggesting underlying hepatitis. Reno Ortez MD Assessment and Plan Problem List: (1) Acute hypoxemic respiratory failure ICD Codes: J96.01 - Acute respiratory failure with hypoxia Plan: Acute hypoxic respiratory failure 50 year tobacco history Extubated 07/19 Tolerating well. Albuterol/ipratropium aerosols every 4 hours with albuterol aerosols every 2 hours. Dyspnea Budesonide aerosols 0.5/2 1 inhalation twice a day Coronary artery disease status post stent RCA 03/27 Dr. Monique Pulmonary edema Peripheral arterial disease status post lower extremity stenting Hypertension Dyslipidemia Pulmonary hypertension likely type III Hypothermia EKG on admission revealed normal sinus rhythm 80. IVCD with a QRS [address] elevation. Troponin 0.03. Dr. Quach/Minor are her rack carrier Echocardiogram 05/27 revealed EF around 50-55%. No regional wall motion abnormality Metoprolol 50 mg twice a day for hypertension Lasix 40 mg iv X1 07/19 Holding amlodipine 5 mill grams daily and lisinopril 5 mill grams daily. Resume when clinically indicated Resumed atorvastatin 20 mg daily for dyslipidemia Resumed aspirin 81 mg daily and clopidogrel 75 mg daily for stent. Vascular surgery consult Dr. Heart does not feel the Fem Pop bypass is infected. CT R thigh with contrast did not show any abscess. Cholelithiasis Pancreatitis MRCP: Cholelithiasis without evidence of common duct stone. Dilatation and irregularity of the pancreatic duct characteristic of chronic pancreatitis Clear liquid diet. Appreciate GI consult signed off. General surgery also consulted do not feel surgery is indicated at this time- rec F/U as outpatient- also signed off Lansoprazole for GI prophylaxis CT abdomen and pelvis did not show definite CBD stone but some evidence of partial common bile duct obstruction Docusate sodium/senna 1 tablet twice a day for bowel regimen History of RA Lupus? Hydroxychloroquine 200 mg daily for her underlying rheumatologic disorder Currently on sliding scale insulin with Novolin moderate protocol with Accu- Cheks every 6 hours to maintain euglycemia Acute kidney injury History of nephrolithiasis Creatinine currently 1.5 stable. Will DC IVF tolerating clear Monitor urine output Accurate I's and O's Avoid nephrotoxic drugs recheck BMP in AM Normocytic anemia Chronic warfarin use History of DVTs bilateral lower extremities DC warfarin INR 7, PTT 102. Continue aspirin/clopidogrel pre Dr. Monique repeat CBC/INR in AM Probable right thigh cellulitis Receive 1 dose of cefepime/azithromycin in ED. Noted allergy to cephalosporins and previous records Continue on levofloxacin, vancomycin, DC aztreonam. Zosyn 4.5 GM IV q6. ID consulted. 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 (3) Hyponatremia ICD Codes: E87.1 - Hypo-osmolality and hyponatremia (4) Normocytic anemia ICD Codes: D64.9 - Anemia, unspecified (5) Wounds, multiple open, lower extremity ICD Codes: S81.809A - Unspecified open wound, unspecified lower leg, initial encounter Status: Acute (6) COPD (chronic obstructive pulmonary disease) ICD Codes: J44.9 - Chronic obstructive pulmonary disease, unspecified Status: Chronic (7) Pulmonary hypertension due to COPD ICD Codes: I27.23 - Pulmonary hypertension due to lung diseases and hypoxia; J44.9 - Chronic obstructive pulmonary disease, unspecified (8) Coronary artery disease ICD Codes: I25.10 - Atherosclerotic heart disease of [place] coronary artery without angina pectoris (9) Depression ICD Codes: F32.9 - Major depressive disorder, single episode, unspecified (10) Dyslipidemia ICD Codes: E78.5 - Hyperlipidemia, unspecified (11) Hypertension ICD Codes: I10 - Essential (primary) hypertension (12) Lupus ICD Codes: L93.0 - Discoid lupus erythematosus (13) Lower leg DVT (deep venous thromboembolism), chronic ICD Codes: I82.5Z9 - Chronic embolism and thrombosis of unspecified deep veins of unspecified distal lower extremity (14) Nephrolithiasis ICD Codes: N20.0 - Calculus of kidney (15) Peripheral arterial occlusive disease ICD Codes: I77.9 - Disorder of arteries and arterioles, unspecified (16) Rheumatoid arthritis ICD Codes: M06.9 - Rheumatoid arthritis, unspecified Assessment and Plan Patient examined. Assessment and plan formulated with Tawana Garcia PA-C. I agree with the above. Problem Qualifiers (1) Wounds, multiple open, lower extremity: Qualified Codes: S81.801D - Unspecified open wound, right lower leg, subsequent encounter (2) COPD (chronic obstructive pulmonary disease): Qualified Codes: J44.9 - Chronic obstructive pulmonary disease, unspecified (3) Coronary artery disease: Qualified Codes: I25.10 - Atherosclerotic heart disease of [place] coronary artery without angina pectoris (4) Depression: Qualified Codes: F32.9 - Major depressive disorder, single episode, unspecified (5) Hypertension: Qualified Codes: I10 - Essential (primary) hypertension (6) Lupus: Qualified Codes: L93.0 - Discoid lupus erythematosus (7) Lower leg DVT (deep venous thromboembolism), chronic: Qualified Codes: I82.5Z9 - Chronic embolism and thrombosis of unspecified deep veins of unspecified distal lower extremity (8) Hypothermia: Qualified Codes: T68.XXXA - Hypothermia, initial encounter Tawana Garcia Jul 21, 2017 18:50 Cristobal Larose DO Jul 25, 2017 00:30
--- NOTE | 2017-07-21 19:01 | RADRPT ---
EXAM DATE/TIME: 07/21/2017 17:45 [facility] COMPARISON: No previous studies available for comparison. INDICATIONS : Protocol for vein-mapping. MEDICAL HISTORY : Hypertension. Hypercholesterolemia. Myocardial infarction. Deep vein thrombosis. Depression. Lupu s. Rheumatoid arthritis. SURGICAL HISTORY : Cardiac catheterization. Bilateral femur surgery. Pins in right ankle. Left wrist surgery. Parath yroid surgery. MRSA. ENCOUNTER: Initial ACUITY: 1 day PAIN SCORE: 2/10 LOCATION: Bilateral leg. TECHNIQUE: Venous ultrasound of the left and right leg was performed from the inguinal ligament to the proximal calf. Real-time, color Doppler and spectral tracing, compression and augmentation techniques were us ed. FINDINGS: RIGHT LEG: There is normal compressibility of the deep venous system from the inguinal region to the proximal ca lf. No echogenic clot is seen in the lumen of the common femoral, femoral, popliteal, and posterior tibial veins. There is a normal response of the venous system to proximal and distal augmentation an d respiration. LEFT LEG: There is normal compressibility of the deep venous system from the inguinal region to the proximal ca lf. No echogenic clot is seen in the lumen of the common femoral, femoral, popliteal, and posterior tibial veins. There is a normal response of the venous system to proximal and distal augmentation an d respiration. CONCLUSION: No evidence of DVT. Harry Maxwell MD on July 21, 2017 at 18:59 Board Certified Radiologist. This report was verified electronically.
--- NOTE | 2017-07-21 19:41 | RADRPT ---
EXAM DATE/TIME: 07/21/2017 17:57 [facility] COMPARISON: No previous studies available for comparison. INDICATIONS : Bypass planning. MEDICAL HISTORY : Hypertension. Hypercholesterolemia. Mycardial infarction. Deep vein thrombosis. Depression. Lupus . Rheumatoid arthritis. MRSA. SURGICAL HISTORY : Parathyroid surgery. Bilateral cataract surgery. Cardiac catheterization. ENCOUNTER: Initial ACUITY: 2 day PAIN SCORE: 3/10 LOCATION: Bilateral leg. GREATER SAPHENOUS VEIN THIGH: PROXIMAL: Right 4 mm Left 2 mm MID: Right 3 mm Left 3 mm DISTAL: Right 2 mm Left 3 mm CALF: PROXIMAL: Right 2 mm Left 1 mm MID: Right 2 mm Left Non-visualized DISTAL: Right 1 mm Left Non-visualized FINDINGS: The venous system of the lower extremities are patent by color Doppler imaging. Measurements of the leg veins (in mm) are listed above. CONCLUSION: Venous mapping as above. Harry Maxwell MD on July 21, 2017 at 19:39 Board Certified Radiologist. This report was verified electronically.
[2017-07-21] MEDS: MIRTAZAPINE 15 MG TAB PO SCH (21:25)
[2017-07-22] VITALS (22 sets, daily range): BP systolic 147–195; BP diastolic 66–118; PULSE 70–83; RESP 19–33; TEMP 98.1–99; O2SAT 94–100
[2017-07-22] MEDS: RESP: ALBUTEROL 2.5 MG/IPRATROPIUM 0.5 MG NEB (SCH) INH (03:02)
[2017-07-22] MEDS: CHLORHEXIDINE GLUCONATE 2 % 1 PACK (2 CLOTHS) TOP SCH (04:00)
[2017-07-22] MEDS: ACETAMINOPHEN/HYDROcodone 325 MG/5 MG TAB PO PRN ×2 (04:50→20:01)
[2017-07-22] MEDS: INSULIN NovoLIN REGULAR SUPPLEMENTAL SCALE SQ SCH ×4 (06:00→18:00)
[2017-07-22] MEDS: methylPREDNISolone SOD SUCC 40 MG/1 ML VIAL IV PUSH SCH ×3 (06:06→22:57)
[2017-07-22] MEDS: CHLORHEXIDINE 0.12% (ORAL KIT) 15 ML CUP MT SCH ×2 (08:00→20:00)
--- NOTE | 2017-07-22 08:41 | MB ---
cc: WEN INFANTE M.D. DATE OF CONSULTATION 07/21/[address] Bucio REASON FOR CONSULTATION Hematology consulted to render an opinion regarding patient with coagulopathy and recommendation of anticoagulation. HISTORY OF THE PRESENT ILLNESS The patient is very pleasant 72-year-old female presented to the hospital with acute shortness of breath. She had has been tired for several days. She was intubated in the field. On arrival she was hypothermic. She thought to have sepsis. She also noted to have elevated lipase suggestive of pancreatitis. She has been on Coumadin for last 8-10 years after her right lower extremity venous thrombosis. She recently had coronary artery stent placement and also started on Plavix. On presentation her INR 1.7, however over the next few days it trended up to 11. She received 2 units of fresh frozen plasma yesterday. Today his INR down to 3.9. She is feeling better. She denies any chest pain. Her shortness of breath has improved. She has some bleeding in the right ankle area. She denies any GI bleed. Denies any dysuria, hematuria. PAST MEDICAL HISTORY 1. Right lower extremity deep venous thrombosis about 8-9 years ago. 2. Coronary artery disease. 3. Congestive heart failure. 4. Pulmonary hypertension. 5. Chronic obstructive pulmonary disease. 6. Peripheral arterial disease. 7. Lupus. 8. Depression. 9. Nephrolithiasis. 10. Rheumatoid arthritis. 11. Hyperlipidemia. 12. Hypertension. 13. Chronic right leg wound. PAST SURGICAL HISTORY 1. Coronary artery stent placement. 2. Iliac artery stent placement. 3. Right ankle surgery. 4. IVC filter placement. FAMILY HISTORY Noncontributory. SOCIAL HISTORY Has a 50 pack-year smoking history and just quit recently. Drinks a beer a day. ALLERGIES NO KNOWN DRUG ALLERGIES. CURRENT MEDICATIONS 1. Norvasc. 2. Remeron. 3. Levaquin. 4. Insulin. 5. Prevacid. 6. [place]-Colace. 7. Aspirin. 8. Plavix. 9. Plaquenil. 10. Lipitor. 11. Zoloft. 12. Metoprolol. 13. Ferrous sulfate. 14. DuoNebs. 15. Pulmicort. REVIEW OF SYSTEMS CONSTITUTIONAL: Negative. EYES: Negative. EARS, NOSE, AND THROAT: Negative. CARDIOVASCULAR: Denies chest pressure, palpitations. RESPIRATORY: As above. GASTROINTESTINAL: Denies any nausea or vomiting, diarrhea or abdominal pain. GENITOURINARY: Denies any dysuria or hematuria. MUSCULOSKELETAL: Chronic joint ache. HEMATOLOGY: As above. ENDOCRINE: Negative. DERMATOLOGIC: As above. NEUROLOGIC: Negative. PHYSICAL EXAMINATION VITAL SIGNS: Temperature 99, blood pressure 158/95, O2 saturation 96%. GENERAL: She is alert and oriented times three in no acute distress. HEENT: Atraumatic, normocephalic. Pupils equal, round and reactive to light. Extraocular muscles intact. No scleral icterus. Oropharynx dry mucosa. No lesion. NECK: No thyromegaly. No palpable masses. LYMPHATICS: No palpable cervical, clavicular, axillary or inguinal lymph node. CARDIOVASCULAR: Regular S1-S2. No murmur. LUNGS: Clear to auscultation anteriorly. ABDOMEN: Soft, nontender. I could not palpate liver or spleen. EXTREMITIES: Right lower extremity dressing has old blood. No calf tenderness. SKIN: No rash or petechiae. NEUROLOGIC: Exam nonfocal. LABORATORY DATA Reviewed. ASSESSMENT 1. 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 The patient has been on Coumadin for the last 8-10 years after her right lower extremity deep venous thrombosis. When she presented to the hospital her INR was 1.7. The INR trended up to 11.1 two days later which I think is due to interaction with the antibiotic like Levaquin. She received 2 units of fresh frozen plasma yesterday and INR is down to 3.9 this morning. She is also on aspirin and Plavix for coronary disease and peripheral arterial disease. She has no evidence of active bleeding. Her hemoglobin did drop from 11 down to 9.2 likely due to hydration. Her hemoglobin has been stable the last 2 days and no evidence of active bleeding. At this point the patient may be requiring invasive procedure. I would recommend starting her on heparin when her INR trends below 2. If there is no plan for further invasive procedure then she could restart back on Coumadin at a lower dose, especially if she is still on Levaquin. I have talked to the patient about trying new oral anticoagulant but she is not interested. She stated that she did well on Coumadin and she would rather stay on Coumadin. 2. History of right lower extremity venous thrombosis about 8-9 years ago. She has no evidence of recurrent thrombosis. 3. Peripheral arterial disease. She is status post fem-pop bypass and right iliac artery stent placement. She is currently undergoing workup per vascular surgery. 4. Sepsis which has improved. She is on antibiotic per infectious disease. 5. Chronic right lower extremity wound. RECOMMENDATIONS 1. Continue to monitor coagulation study and CBC. 2. Recommend restarting heparin when her iron trends below 2 if patient is going to have invasive procedure, if she is not going to have further procedure she could restart back on Coumadin at a lower dose and titrate to INR between [address] Bucio for asking me to see this patient. MD TUAN Villa/CRISTEL /5:39 PM /8:27 AM MTDD
[2017-07-22] MEDS: ARTIFICIAL TEARS OPTH SOLN 15 ML BTL EACH EYE SCH ×3 (09:00→17:58)
[2017-07-22] MEDS: COLLAGENASE OINT 30 GM TUBE TOPICAL SCH (09:00)
[2017-07-22] MEDS: DOCUSATE SODIUM 50 MG/SENNA 8.6 MG TAB PO SCH ×2 (09:00→20:06)
[2017-07-22] MEDS: FERROUS SULFATE 325 MG (65 MG ELEMENTAL IRON) TAB PO SCH ×2 (09:00→09:38)
[2017-07-22] MEDS: RESP: BUDESONIDE 0.5 MG/2 ML NEB NEB SCH ×2 (09:11→20:00)
[2017-07-22] MEDS: amLODIPine BESYLATE 5 MG TAB PO SCH (09:38)
[2017-07-22] MEDS: METOPROLOL TARTRATE 50 MG TAB PO SCH ×2 (09:38→20:03)
[2017-07-22] MEDS: HYDROXYCHLOROQUINE SULFATE 200 MG TAB PO SCH (09:38)
[2017-07-22] MEDS: ASPIRIN 81 MG CHEW TAB CHEW SCH (09:38)
[2017-07-22] MEDS: ATORVASTATIN 20 MG TAB PO SCH (09:38)
[2017-07-22] MEDS: SERTRALINE HCL 50 MG TAB PO SCH (09:38)
[2017-07-22] MEDS: CLOPIDOGREL 75 MG TAB PO SCH (09:39)
[2017-07-22] MEDS: LANSOPRAZOLE SOLUTAB 30 MG TAB G-TUBE SCH (09:39)
[2017-07-22] MEDS: SODIUM CHLORIDE 0.9% FLUSH 10 ML FLUSH IV FLUSH SCH ×2 (09:39→20:05)
[2017-07-22] MEDS ORDERED: PHARMACY ORDERED LAB ONE (11:45)
[2017-07-22 12:26] LABS: HEMATOCRIT 22.6 % (35.0-46.0); MEAN CELL VOLUME 93.9 FL (80.0-100.0); MEAN CORPUSCULAR HEMOGLOBIN 31.5 PG (27.0-34.0); MEAN CORPUSCULAR HGB CONC 33.6 % (32.0-36.0); PLATELET COUNT 232 TH/MM3 (150-450); RED BLOOD COUNT 2.41 MIL/MM3 (4.00-5.30); RED CELL DISTRIBUTION WIDTH 15.4 % (11.6-17.2); REVIEW FLAG FINAL; WHITE BLOOD COUNT 8.9 TH/MM3 (4.0-11.0)
[2017-07-22 12:37] LABS: PROTHROMBIN TIME - PATIENT 164.9 SEC (9.8-11.6)
[2017-07-22 12:43] LABS: INTERNATIONAL NORMALIZED RATIO 13.3 RATIO
[2017-07-22 13:22] LABS: BICARBONATE 17.2 MEQ/L (21.0-32.0); POTASSIUM 3.9 MEQ/L (3.5-5.1)
[2017-07-22 13:26] LABS: CALCIUM-PROTEIN CORRECTED 7.7 MG/DL (8.5-10.1); TOTAL BILIRUBIN ADULT 0.2 MG/DL (0.2-1.0)
[2017-07-22] MEDS: LEVOFLOXACIN 750 MG PREMIX INJ 150 ML IV SCH (15:50)
[2017-07-22] MEDS ORDERED: PHYTONADIONE 5 MG TAB PO ONE (16:45)
--- NOTE | 2017-07-22 16:50 | PD.ONC.PN ---
Subjective Subjective Remarks Afebrile Pt had part 1 of WBC nuclear med test earlier today Part 2 to be at 5 pm tonight She reports she is having nosebleeds Objective Data Date Time Temp Pulse Resp B/P (MAP) Pulse Ox O2 Delivery O2 Flow Rate FiO2 07/22/17 09:13 100 Nasal Cannula 2.00 07/22/17 06:00 74 07/22/17 04:00 82 07/22/17 04:00 99.0 82 24 151/67 (95) 97 07/22/17 02:00 75 07/22/17 00:00 72 07/22/17 00:00 74 20 155/67 (96) 94 07/21/17 22:00 93 07/21/17 21:26 16 07/21/17 20:00 93 07/21/17 20:00 99.1 93 20 156/66 (96) 98 07/21/17 19:42 100 Nasal Cannula 2.00 07/21/17 19:00 86 07/21/17 18:00 89 07/21/17 17:00 82 07/22/17 07/22/17 07/22/17 07:00 15:00 23:00 Intake Total 240 ml Output Total 1000 ml Balance -760 ml Result Diagram: 07/22/17 1152 07/22/17 1152 Laboratory Results Laboratory Tests Test 07/22/17 11:52 White Blood Count 8.9 TH/MM3 Red Blood Count 2.41 MIL/MM3 Hemoglobin 7.6 GM/DL Hematocrit 22.6 % Mean Corpuscular Volume 93.9 FL Mean Corpuscular Hemoglobin 31.5 PG Mean Corpuscular Hemoglobin Concent 33.6 % Red Cell Distribution Width 15.4 % Platelet Count 232 TH/MM3 Mean Platelet Volume 6.8 FL Prothrombin Time 164.9 SEC Prothromb Time International Ratio 13.3 RATIO Blood Urea Nitrogen 45 MG/DL Creatinine 1.50 MG/DL Random Glucose 103 MG/DL Total Protein 6.2 GM/DL Albumin 2.6 GM/DL Calcium Level 7.2 MG/DL Alkaline Phosphatase 93 U/L Aspartate Amino Transf (AST/SGOT) 27 U/L Alanine Aminotransferase (ALT/SGPT) 28 U/L Total Bilirubin 0.2 MG/DL Sodium Level 140 MEQ/L Potassium Level 3.9 MEQ/L Chloride Level 114 MEQ/L Carbon Dioxide Level 17.2 MEQ/L Anion Gap 9 MEQ/L Estimat Glomerular Filtration Rate 34 ML/MIN Protein Corrected Calcium 7.7 MG/DL Lipase 1375 U/L Vancomycin Level Trough 22.9 MCG/ML Administered Medications Medications (Trade) Dose Ordered Sig/Sarah Route PRN Reason Start Time Stop Time Status Last Admin Dose Admin Sodium Chloride (NS Flush) 2 ml BID IV FLUSH 07/18/17 09:00 07/22/17 09:39 Lansoprazole (Prevacid Odt) 30 mg DAILY G-TUBE 07/18/17 09:00 07/22/17 09:39 Artificial Tears (Tears Naturale Opth Soln) 1 drop TID EACH EYE 07/18/17 09:00 07/21/17 12:03 Chlorhexidine Gluconate (Chlorhexidine 2% Cloth) 3 pack Taper DAILY@04 TOP 07/19/17 04:00 07/15/18 03:59 07/22/17 04:00 Senna/Docusate Sodium (Juana-Colace) 1 tab BID PO 07/18/17 09:00 07/21/17 21:25 Chlorhexidine Gluconate (Peridex 0.12% Liq) 15 ml BID@08,20 MT 07/18/17 08:00 07/19/17 09:56 Aspirin (Aspirin Chew) 81 mg DAILY CHEW 07/18/17 09:00 07/22/17 09:38 Clopidogrel Bisulfate (Plavix) 75 mg DAILY PO 07/18/17 09:00 07/22/17 09:39 Hydroxychloroquine Sulfate (Plaquenil) 200 mg DAILY PO 07/18/17 09:00 07/22/17 09:38 Atorvastatin Calcium (Lipitor) 20 mg DAILY PO 07/18/17 09:00 07/22/17 09:38 Mirtazapine (Remeron) 15 mg HS PO 07/18/17 21:00 07/21/17 21:25 Sertraline HCl (Zoloft) 50 mg DAILY PO 07/18/17 09:00 07/22/17 09:38 Budesonide (Pulmicort Respule Neb) 0.5 mg Q12HR NEB NEB 07/18/17 08:00 07/22/17 09:11 Methylprednisolone Sodium Succinate (SoluMEDROL INJ) 40 mg Q8HR IV PUSH 07/18/17 14:00 07/22/17 15:50 Insulin Human Regular (NovoLIN R SUPPLEMENTAL SCALE) 1 Q6HR SQ 07/18/17 12:00 07/20/17 18:56 Metoprolol Tartrate (Lopressor) 50 mg BID PO 07/18/17 09:00 07/22/17 09:38 Ferrous Sulfate (Ferrous Sulfate) 325 mg DAILY PO 07/18/17 09:00 07/19/17 09:55 Levofloxacin/ Dextrose 150 ml @ 100 mls/hr Q24H IV 07/18/17 10:00 07/22/17 15:50 Hydralazine HCl (Apresoline Inj) 10 mg Q1H PRN IV PUSH SBP>160, DBP>90 07/18/17 14:15 07/21/17 04:38 Amlodipine Besylate (Norvasc) 5 mg DAILY PO 07/19/17 09:00 07/22/17 09:38 Heparin Sodium/ Dextrose 250 ml @ 5 mls/hr TITRATE PRN IV Coagulation management 07/19/17 16:00 07/20/17 00:51 Acetaminophen/ Hydrocodone Bitart ([place] 5-325 Mg) 1 tab Q6H PRN PO PAIN 3-04/1907/19/17 21:30 07/21/17 05:47 Acetaminophen/ Hydrocodone Bitart ([place] 5-325 Mg) 2 tab Q6H PRN PO PAIN 8-07/2007/20/17 00:44 07/22/17 04:50 Vancomycin HCl 750 mg/Sodium Chloride 257.5 ml @ 250 mls/hr Q24H IV 07/20/17 12:00 Future Hold 07/21/17 12:03 Collagenase (Santyl Oint) 1 applic DAILY TOPICAL 07/21/17 17:00 07/21/17 18:25 Objective Remarks GENERAL: Elderly female, resting in bed in no acute distress SKIN: Warm and dry. HEAD: Normocephalic. EENT: Epistaxis with blood on multiple tissues on exam EYES: No injection or drainage. NECK: Supple, trachea midline. No JVD or lymphadenopathy. CARDIOVASCULAR: Regular rate and rhythm without murmurs. RESPIRATORY: Breath sounds equal bilaterally. No accessory muscle use. GASTROINTESTINAL: Abdomen soft, non-tender, nondistended. EXTREMITIES: Bandage to right lower extremity. Both lower extremities thin. NEUROLOGICAL: No obvious focal deficit. Awake, alert, and oriented x3. Assessment/Plan Problem List: (1) Coagulopathy ICD Codes: D68.9 - Coagulation defect, unspecified Plan: -- Coagulopathy likely from coumadin with interaction with Levaquin -- PRBC's ordered today as hgb dropped from 9.2 to 7.6 -- Will also order Vitamin K. -- Still with epistaxis -- Start heparin when INR trends below 2. Hx/Workup: Has been on Coumadin for the past 8-10 years after she had a right lower extremity DVT. Most recently she also had coronary artery stent placement and was started on Plavix. Her INR has increased from 1.7-11.1. Yesterday her INR was down to 3.9 however today it is back up again to 13.3. She is status post femoropopliteal bypass and right iliac artery stent placement. Assessment 72 y/o female admitted with sepsis; hematology consulted for coagulaopathy Plan 1. INR noted to be increased again today to 13.3. Will give Vit K 5mg. She is also receiving donor PRBC's for low hgb. 2. No anticoagulation until INR less than 2. 3. Monitor epistaxis. 4. Check stool for occult blood 5. CBC in am. Attending Statement The exam, history, and the medical decision-making described in the above note were completed with the assistance of the mid-level provider. I reviewed and agree with the findings presented. I attest that I had a [id number] encounter with the patient on the same day, and personally performed and documented my assessment and findings in the medical record. No LE edema. RLE dressing dry. INR trended back up. She was given vit K. Hgb trended lower and she received PRBC. Continue to monitor coag and CBC. Discussed with Dr. Larose. Chaya Orozco Jul 22, 2017 16:50 Ethan Saenz MD Jul 22, 2017 17:05
[2017-07-22] MEDS ORDERED: FUROSEMIDE 20 MG/2 ML VIAL IV PUSH SCH (17:00)
[2017-07-22] MEDS ORDERED: SODIUM CHLORIDE 0.65% NASAL SPRAY 45 ML BTL EACH NARE PRN (18:15)
--- NOTE | 2017-07-22 18:48 | HHI.PR ---
Subjective Remarks Patient resting in bed A&O denies SOB small amount of blood from nose after blowing nose but no active bleeding Objective Vitals Vital Signs Date Time Temp Pulse Resp B/P (MAP) Pulse Ox O2 Delivery O2 Flow Rate FiO2 07/22/17 18:34 98.1 79 20 172/79 98 07/22/17 18:19 98.9 78 22 177/79 99 07/22/17 18:00 80 25 180/78 (112) 98 07/22/17 18:00 80 07/22/17 16:00 78 07/22/17 16:00 98.9 78 26 156/69 (98) 97 07/22/17 15:00 77 07/22/17 15:00 77 19 155/70 (98) 99 07/22/17 14:00 77 24 147/66 (93) 98 07/22/17 14:00 77 07/22/17 13:00 73 25 175/74 (107) 100 07/22/17 13:00 73 07/22/17 12:00 72 07/22/17 12:00 99.0 72 23 154/72 (99) 100 07/22/17 11:00 72 22 161/72 (101) 97 07/22/17 11:00 70 07/22/17 10:00 83 07/22/17 10:00 83 23 173/118 (136) 98 07/22/17 09:13 100 Nasal Cannula 2.00 07/22/17 09:00 75 07/22/17 09:00 75 22 169/74 (105) 100 07/22/17 08:00 80 07/22/17 08:00 98.1 80 24 192/79 (116) 100 07/22/17 06:00 74 07/22/17 04:00 82 07/22/17 04:00 99.0 82 24 151/67 (95) 97 07/22/17 02:00 75 07/22/17 00:00 72 07/22/17 00:00 74 20 155/67 (96) 94 07/21/17 22:00 93 07/21/17 21:26 16 07/21/17 20:00 93 07/21/17 20:00 99.1 93 20 156/66 (96) 98 07/21/17 19:42 100 Nasal Cannula 2.00 07/21/17 19:00 86 07/22/17 07/22/17 07/23/17 14:59 22:59 06:59 Intake Total 1135 ml Output Total 750 ml Balance 385 ml Intake Oral 960 ml IV Total 150 ml Blood Product IV Normal Saline Flush 25 ml Output Urine Total 750 ml # Bowel Movements 0 Result Diagram: 07/22/17 1152 07/22/17 1152 Other Results Laboratory Tests Test 07/19/17 23:10 07/20/17 07:08 07/20/17 12:36 07/20/17 17:47 Activated Partial Thromboplast Time 58.0 SEC 101.8 SEC 63.2 SEC White Blood Count 9.5 TH/MM3 Red Blood Count 2.90 MIL/MM3 Hemoglobin 9.2 GM/DL Hematocrit 26.8 % Mean Corpuscular Volume 92.1 FL Mean Corpuscular Hemoglobin 31.8 PG Mean Corpuscular Hemoglobin Concent 34.5 % Red Cell Distribution Width 15.3 % Platelet Count 269 TH/MM3 Mean Platelet Volume 6.7 FL Neutrophils (%) (Auto) 84.1 % Lymphocytes (%) (Auto) 7.9 % Monocytes (%) (Auto) 7.6 % Eosinophils (%) (Auto) 0.0 % Basophils (%) (Auto) 0.4 % Neutrophils # (Auto) 8.0 TH/MM3 Lymphocytes # (Auto) 0.8 TH/MM3 Monocytes # (Auto) 0.7 TH/MM3 Eosinophils # (Auto) 0.0 TH/MM3 Basophils # (Auto) 0.0 TH/MM3 CBC Comment DIFF FINAL Differential Comment Prothrombin Time 83.7 SEC 135.8 SEC Prothromb Time International Ratio 7.0 RATIO 11.1 RATIO Blood Urea Nitrogen 50 MG/DL Creatinine 1.49 MG/DL Random Glucose 89 MG/DL Total Protein 5.7 GM/DL Albumin 2.3 GM/DL Calcium Level 7.3 MG/DL Magnesium Level 1.9 MG/DL Alkaline Phosphatase 105 U/L Aspartate Amino Transf (AST/SGOT) 19 U/L Alanine Aminotransferase (ALT/SGPT) 20 U/L Total Bilirubin 0.1 MG/DL Sodium Level 136 MEQ/L Potassium Level 4.1 MEQ/L Chloride Level 108 MEQ/L Carbon Dioxide Level 15.5 MEQ/L Anion Gap 13 MEQ/L Estimat Glomerular Filtration Rate 34 ML/MIN Protein Corrected Calcium 8.1 MG/DL Lipase 1852 U/L Random Vancomycin Level 13.1 COMMENT Test 07/20/17 23:55 07/21/17 05:10 07/22/17 11:52 Prothrombin Time 33.4 SEC 45.5 SEC 164.9 SEC Prothromb Time International Ratio 2.9 RATIO 3.9 RATIO 13.3 RATIO Activated Partial Thromboplast Time 54.6 SEC White Blood Count 8.9 TH/MM3 Red Blood Count 2.41 MIL/MM3 Hemoglobin 7.6 GM/DL Hematocrit 22.6 % Mean Corpuscular Volume 93.9 FL Mean Corpuscular Hemoglobin 31.5 PG Mean Corpuscular Hemoglobin Concent 33.6 % Red Cell Distribution Width 15.4 % Platelet Count 232 TH/MM3 Mean Platelet Volume 6.8 FL Blood Urea Nitrogen 45 MG/DL Creatinine 1.50 MG/DL Random Glucose 103 MG/DL Total Protein 6.2 GM/DL Albumin 2.6 GM/DL Calcium Level 7.2 MG/DL Alkaline Phosphatase 93 U/L Aspartate Amino Transf (AST/SGOT) 27 U/L Alanine Aminotransferase (ALT/SGPT) 28 U/L Total Bilirubin 0.2 MG/DL Sodium Level 140 MEQ/L Potassium Level 3.9 MEQ/L Chloride Level 114 MEQ/L Carbon Dioxide Level 17.2 MEQ/L Anion Gap 9 MEQ/L Estimat Glomerular Filtration Rate 34 ML/MIN Protein Corrected Calcium 7.7 MG/DL Lipase 1375 U/L Vancomycin Level Trough 22.9 MCG/ML Imaging Last Impressions Foot X-Ray 07/21/17 0000 Signed Impressions: Service Date/Time: Friday, July 21, 2017 16:00 - CONCLUSION: Osteopenia without definite fracture. Neftaly Esquivel MD FACR Chest X-Ray 07/20/17 0600 Signed Impressions: Service Date/Time: Thursday, July 20, 2017 04:12 - CONCLUSION: Interval extubation. Persistent bilateral infiltrates. Fortunato Pickett MD Lower Extremity CT 07/20/17 0000 Signed Impressions: Service Date/Time: Thursday, July 20, 2017 15:47 - CONCLUSION: Extensive soft tissue swelling involving the proximal thigh without discrete fluid collection or abscess. Status post femoral popliteal grafting and endovascular stenting. Aurelio Mccray MD Lower Extremity Ultrasound 07/19/17 0000 Signed Impressions: Service Date/Time: Wednesday, July 19, 2017 12:04 - CONCLUSION: Abnormal thigh. MRI or CT with contrast would be of benefit for further evaluation. Abscess is suspected. Neftaly Esquivel MD FACR Cholangiopancreatography MRI 07/19/17 Signed Impressions: Service Date/Time: Wednesday, July 19, 2017 21:49 - CONCLUSION: 1. Cholelithiasis without evidence of common duct stone 2. Dilatation and irregularity of the pancreatic duct characteristic of chronic pancreatitis Dk Berger MD Head CT 07/18/17 Signed Impressions: Service Date/Time: Tuesday, July 18, 2017 04:29 - CONCLUSION: Normal examination. Tha Shaw Jr., MD Abdomen/Pelvis CT 07/18/17 Signed Impressions: Service Date/Time: Wednesday, July 19, 2017 12:56 - CONCLUSION: 1. Small bilateral pleural effusions with associated atelectasis at the lung bases. 2. Distended gallbladder containing calcified gallstones with prominent common bile duct and mild central intrahepatic ductal dilatation. Distal CBD stone noted on ultrasound exam earlier today is not definitively visualized although the findings are concerning for at least partial distal CBD obstruction. 3. Coarse calcifications in the pancreatic head consistent with prior pancreatitis. Possible pancreatic cysts demonstrated on ultrasound are not definitively demonstrated although region of low density near the pancreatic head likely corresponds to dilated common bile duct. Overall evaluation is limited due to lack of IV contrast. 4. Findings consistent with medullary nephrocalcinosis. Lobo Kessler MD Abdomen Ultrasound 07/18/17 Signed Impressions: Service Date/Time: Tuesday, July 18, 2017 17:05 - CONCLUSION: 1. Echogenic kidneys noted bilaterally with bilateral cysts. 2. Dilated common bile duct and choledocholith.. 3. Cholelithiasis. 4. The proximal pancreas is not well-visualized with areas suggesting pancreatic cysts and calcifications. 5. Small left pleural effusion. 6. Heterogeneous liver suggesting underlying hepatitis. Reno Ortez MD Objective Remarks GENERAL: This is a frail elderly 72 year old female patient, in no apparent distress. CARDIOVASCULAR: Regular rate and rhythm without murmurs, gallops, or rubs. RESPIRATORY: Clear to auscultation. Breath sounds equal bilaterally. No wheezes , rales, or rhonchi. GASTROINTESTINAL: Abdomen soft, non-tender, nondistended. No hepato-splenomegaly , or palpable masses. No guarding. MUSCULOSKELETAL: Extremities without clubbing, cyanosis, or edema. No joint tenderness, effusion, or edema noted. No calf tenderness. Negative Homans sign bilaterally. NEUROLOGICAL: Awake and alert. No focal deficits. Motor and sensory grossly within normal limits. Five out of 5 muscle strength in all muscle groups. Normal speech. A/P Problem List: (1) Acute hypoxemic respiratory failure ICD Codes: J96.01 - Acute respiratory failure with hypoxia Plan: Acute hypoxic respiratory failure 50 year tobacco history Extubated 07/19 Tolerating well. Albuterol/ipratropium aerosols every 4 hours with albuterol aerosols every 2 hours. Dyspnea Budesonide aerosols 0.5/2 1 inhalation twice a day now on RA Coronary artery disease status post stent RCA 03/27 Dr. Monique Pulmonary edema Peripheral arterial disease status post lower extremity stenting Hypertension Dyslipidemia Pulmonary hypertension likely type III Hypothermia EKG on admission revealed normal sinus rhythm 80. IVCD with a QRS [address] elevation. Troponin 0.03. 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 No regional wall motion abnormality Metoprolol 50 mg twice a day for hypertension Lasix 40 mg iv X1 07/19 Holding amlodipine 5 mill grams daily and lisinopril 5 mill grams daily. Resume when clinically indicated Resumed atorvastatin 20 mg daily for dyslipidemia Resumed aspirin 81 mg daily and clopidogrel 75 mg daily for stent. Vascular surgery consult Dr. Heart does not feel the Fem Pop bypass is infected. CT R thigh with contrast did not show any abscess. Cholelithiasis Pancreatitis MRCP: Cholelithiasis without evidence of common duct stone. Dilatation and irregularity of the pancreatic duct characteristic of chronic pancreatitis Clear liquid diet. Appreciate GI consult signed off. General surgery also consulted do not feel surgery is indicated at this time- rec F/U as outpatient- also signed off Lansoprazole for GI prophylaxis CT abdomen and pelvis did not show definite CBD stone but some evidence of partial common bile duct obstruction Docusate sodium/senna 1 tablet twice a day for bowel regimen Lipase trending downward recheck in AM History of RA Lupus? Hydroxychloroquine 200 mg daily for her underlying rheumatologic disorder Currently on sliding scale insulin with Novolin moderate protocol with Accu- Cheks every 6 hours to maintain euglycemia Acute kidney injury History of nephrolithiasis Creatinine currently stable. Will DC IVF tolerating clear Monitor urine output Accurate I's and O's Avoid nephrotoxic drugs Normocytic anemia Chronic warfarin use History of DVTs bilateral lower extremities DC warfarin Continue aspirin/clopidogrel pre Dr. Monique hgb 7.6 two units PRBC ordered, no signs of active bleeding, occult stool ordered INR 13.3, vitamin k 5mg PO x 1 Dr. Larose discussed with dr. Saenz repeat CBC/INR in AM Probable right thigh cellulitis Receive 1 dose of cefepime/azithromycin in ED. Noted allergy to cephalosporins and previous records Continue on levofloxacin, vancomycin, DC aztreonam. Zosyn 4.5 GM IV q6. ID consulted. 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 (3) Hyponatremia ICD Codes: E87.1 - Hypo-osmolality and hyponatremia (4) Normocytic anemia ICD Codes: D64.9 - Anemia, unspecified (5) Wounds, multiple open, lower extremity ICD Codes: S81.809A - Unspecified open wound, unspecified lower leg, initial encounter Status: Acute (6) COPD (chronic obstructive pulmonary disease) ICD Codes: J44.9 - Chronic obstructive pulmonary disease, unspecified Status: Chronic (7) Pulmonary hypertension due to COPD ICD Codes: I27.23 - Pulmonary hypertension due to lung diseases and hypoxia; J44.9 - Chronic obstructive pulmonary disease, unspecified (8) Coronary artery disease ICD Codes: I25.10 - Atherosclerotic heart disease of [place] coronary artery without angina pectoris (9) Depression ICD Codes: F32.9 - Major depressive disorder, single episode, unspecified (10) Dyslipidemia ICD Codes: E78.5 - Hyperlipidemia, unspecified (11) Hypertension ICD Codes: I10 - Essential (primary) hypertension (12) Lupus ICD Codes: L93.0 - Discoid lupus erythematosus (13) Lower leg DVT (deep venous thromboembolism), chronic ICD Codes: I82.5Z9 - Chronic embolism and thrombosis of unspecified deep veins of unspecified distal lower extremity (14) Nephrolithiasis ICD Codes: N20.0 - Calculus of kidney (15) Peripheral arterial occlusive disease ICD Codes: I77.9 - Disorder of arteries and arterioles, unspecified (16) Rheumatoid arthritis ICD Codes: M06.9 - Rheumatoid arthritis, unspecified Assessment and Plan Patient examined. Assessment and plan formulated with Tawana Garcia PA-C. I agree with the above. Problem Qualifiers (1) Wounds, multiple open, lower extremity: Qualified Codes: S81.801D - Unspecified open wound, right lower leg, subsequent encounter (2) COPD (chronic obstructive pulmonary disease): Qualified Codes: J44.9 - Chronic obstructive pulmonary disease, unspecified (3) Coronary artery disease: Qualified Codes: I25.10 - Atherosclerotic heart disease of [place] coronary artery without angina pectoris (4) Depression: Qualified Codes: F32.9 - Major depressive disorder, single episode, unspecified (5) Hypertension: Qualified Codes: I10 - Essential (primary) hypertension (6) Lupus: Qualified Codes: L93.0 - Discoid lupus erythematosus (7) Lower leg DVT (deep venous thromboembolism), chronic: Qualified Codes: I82.5Z9 - Chronic embolism and thrombosis of unspecified deep veins of unspecified distal lower extremity Tawana Garcia Jul 22, 2017 18:48 Cristobal Larose DO Jul 25, 2017 00:25
[2017-07-22] MEDS: MIRTAZAPINE 15 MG TAB PO SCH (20:03)
[2017-07-22] MEDS: SODIUM CHLORIDE 0.9% FLUSH 10 ML FLUSH IV FLUSH PRN (20:05)
[2017-07-23] VITALS (15 sets, daily range): BP systolic 157–188; BP diastolic 72–88; PULSE 65–85; RESP 17–28; TEMP 98.2–99.1; O2SAT 95–97
[2017-07-23] MEDS: ACETAMINOPHEN/HYDROcodone 325 MG/5 MG TAB PO PRN ×2 (01:32→21:30)
[2017-07-23] MEDS: hydrALAZINE HCL 20 MG/ML VIAL IV PUSH PRN ×3 (03:02→21:20)
[2017-07-23] MEDS: CHLORHEXIDINE GLUCONATE 2 % 1 PACK (2 CLOTHS) TOP SCH (04:00)
[2017-07-23] MEDS: INSULIN NovoLIN REGULAR SUPPLEMENTAL SCALE SQ SCH ×4 (05:46→17:40)
[2017-07-23] MEDS: methylPREDNISolone SOD SUCC 40 MG/1 ML VIAL IV PUSH SCH ×3 (05:46→21:19)
[2017-07-23 07:59] LABS: AUTOMATED NEUTROPHIL # 9.3 TH/MM3 (1.8-7.7); BASOPHIL % 0.1 % (0.0-2.0); HEMATOCRIT 35.9 % (35.0-46.0); HEMO FLAGS DIFF FINAL; LYMPH % 11.2 % (9.0-44.0); LYMPHOCYTE # 1.3 TH/MM3 (1.0-4.8); MEAN CELL VOLUME 90.7 FL (80.0-100.0); MEAN CORPUSCULAR HGB CONC 34.1 % (32.0-36.0); MONO % 10.4 % (0.0-8.0); NEUT % 78.3 % (16.0-70.0); PLATELET COUNT 234 TH/MM3 (150-450); RED BLOOD COUNT 3.95 MIL/MM3 (4.00-5.30); RED CELL DISTRIBUTION WIDTH 15.6 % (11.6-17.2); WHITE BLOOD COUNT 11.9 TH/MM3 (4.0-11.0)
[2017-07-23] MEDS: RESP: BUDESONIDE 0.5 MG/2 ML NEB NEB SCH ×2 (08:00→19:25)
[2017-07-23] MEDS: CHLORHEXIDINE 0.12% (ORAL KIT) 15 ML CUP MT SCH ×2 (08:00→20:00)
[2017-07-23 08:08] LABS: INTERNATIONAL NORMALIZED RATIO 1.7 RATIO; PROTHROMBIN TIME - PATIENT 18.9 SEC (9.8-11.6)
[2017-07-23] MEDS: CLOPIDOGREL 75 MG TAB PO SCH (08:57)
[2017-07-23] MEDS: DOCUSATE SODIUM 50 MG/SENNA 8.6 MG TAB PO SCH ×2 (08:57→21:00)
[2017-07-23] MEDS: HYDROXYCHLOROQUINE SULFATE 200 MG TAB PO SCH (08:58)
[2017-07-23] MEDS: METOPROLOL TARTRATE 50 MG TAB PO SCH ×2 (08:58→21:20)
[2017-07-23] MEDS: FERROUS SULFATE 325 MG (65 MG ELEMENTAL IRON) TAB PO SCH (08:58)
[2017-07-23] MEDS: ASPIRIN 81 MG CHEW TAB CHEW SCH (08:58)
[2017-07-23] MEDS: SERTRALINE HCL 50 MG TAB PO SCH (08:59)
[2017-07-23] MEDS: LANSOPRAZOLE SOLUTAB 30 MG TAB G-TUBE SCH (08:59)
[2017-07-23] MEDS: ATORVASTATIN 20 MG TAB PO SCH (08:59)
[2017-07-23] MEDS ORDERED: NIFEdipine 60 MG SUSTAINED RELEASE TAB PO SCH (09:00)
[2017-07-23] MEDS ORDERED: amLODIPine BESYLATE 5 MG TAB PO SCH (09:00)
[2017-07-23] MEDS: SODIUM CHLORIDE 0.9% FLUSH 10 ML FLUSH IV FLUSH SCH ×2 (09:00→21:21)
[2017-07-23] MEDS: COLLAGENASE OINT 30 GM TUBE TOPICAL SCH (09:01)
[2017-07-23 09:23] LABS: ALT (GPT) 25 U/L (10-53); ANION GAP 11 MEQ/L (5-15); AST (GOT) 22 U/L (15-37); BICARBONATE 16.8 MEQ/L (21.0-32.0); BLOOD UREA NITROGEN 49 MG/DL (7-18); CHLORIDE 115 MEQ/L (98-107); GLOMERULAR FILTRATION RATE 36 ML/MIN (>89); POTASSIUM 3.7 MEQ/L (3.5-5.1); SODIUM (NA) 143 MEQ/L (136-145)
[2017-07-23 09:25] LABS: ALKALINE PHOSPHATASE 88 U/L (45-117); TOTAL BILIRUBIN ADULT 0.8 MG/DL (0.2-1.0)
--- NOTE | 2017-07-23 09:54 | HHI.IDPN ---
Subjective Subjective Remarks is a 72-year-old CF with PMHx significant for CAD s.p coronary stent to the RCA 03/[address] Monique, chronic diastolic heart failure, pulmonary hypertension likely type III, tobaccoism with COPD, history of lower extremity DVTs, peripheral arterial disease status post stent to the iliac, nephrolithiasis, lupus, depression, chronic warfarin use, rheumatoid arthritis, hypertension and dyslipidemia. She presents to [facility] with acute onset at 3 AM of shortness of breath. She had been "feeling tired" for the past several days. denies patient had any anginal type pain, shortness of breath, orthopnea or claudication. Upon EMS arrival, patient was emergently orally intubated using 7.5 ET tube. 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 This was drained by ED physician and has been sent for cultures. No signs of necrotizing fasciitis or spreading erythema. Patient was noted be quite hypothermic on admission temperature 90.5. Warming device placed. Chest x-ray admission revealed bilateral infiltrates versus pulmonary edema. Patient received 40 mg IV furosemide and was given 2000 mg cefepime and 500 mg azithromycin along with bronchodilator therapy. CT brain revealed no acute intracranial findings. EEG has normalized. Patient subsequently got extubated and at time of my evaluation she was still in [facility] extubated, on oxygen but able to talk and provide some history. UO ok. Not on pressors. No diarrhea. No rash. Awake, alert Ox3. Workup revealed she has a left thigh chronic wound with ? infection down to muscle. Due to concern for underlying vascular infection ID was consulted. Overnight events reviewed. No fever No rash No diarrhea Antibiotics Levaquin IV Vanco IV I attest I obtained, reviewed, or updated the home meds and current meds. Current Medications Medications (Trade) Dose Ordered Sig/Sarah Route Start Time Stop Time Status Last Admin (NS Flush) 2 ml UNSCH PRN IV FLUSH 07/18/17 07:00 07/22/17 20:05 (NS Flush) 2 ml BID IV FLUSH 07/18/17 09:00 07/23/17 09:00 (Prevacid Odt) 30 mg DAILY G-TUBE 07/18/17 09:00 07/23/17 08:59 (Tears Naturale Opth Soln) 1 drop TID EACH EYE 07/18/17 09:00 07/21/17 12:03 (Zofran Inj) 4 mg Q6H PRN IV PUSH 07/18/17 07:00 (Albuterol Neb) 2.5 mg Q2HR NEB PRN INH 07/18/17 07:00 Miscellaneous Information 1 Q361D XX 07/18/17 07:00 (Chlorhexidine 2% Cloth) 3 pack Taper DAILY@04 TOP 07/19/17 04:00 07/15/18 03:59 07/23/17 04:00 (Chlorhexidine 2% Cloth) 3 pack UNSCH PRN TOP 07/18/17 07:00 (Juana-Colace) 1 tab BID PO 07/18/17 09:00 07/21/17 21:25 (Milk Of Magnesia Liq) 30 ml Q12H PRN PO 07/18/17 07:00 (Senokot) 17.2 mg Q12H PRN PO 07/18/17 07:00 (Dulcolax Supp) 10 mg DAILY PRN RECTAL 07/18/17 07:00 (Lactulose Liq) 30 ml DAILY PRN PO 07/18/17 07:00 (Peridex 0.12% Liq) 15 ml BID@08,20 MT 07/18/17 08:00 07/19/17 09:56 (Aspirin Chew) 81 mg DAILY CHEW 07/18/17 09:00 07/23/17 08:58 (Plavix) 75 mg DAILY PO 07/18/17 09:00 07/23/17 08:57 (Plaquenil) 200 mg DAILY PO 07/18/17 09:00 07/23/17 08:58 (Lipitor) 20 mg DAILY PO 07/18/17 09:00 07/23/17 08:59 (Remeron) 15 mg HS PO 07/18/17 21:00 07/22/17 20:03 (Zoloft) 50 mg DAILY PO 07/18/17 09:00 07/23/17 08:59 (Pulmicort Respule Neb) 0.5 mg Q12HR NEB NEB 07/18/17 08:00 07/22/17 09:11 (SoluMEDROL INJ) 40 mg Q8HR IV PUSH 07/18/17 14:00 07/23/17 05:46 (D50w (Vial) Inj) 50 ml UNSCH PRN IV PUSH 07/18/17 07:00 (Glucagon Inj) 1 mg UNSCH PRN OTHER 07/18/17 07:00 (NovoLIN R SUPPLEMENTAL SCALE) 1 Q6HR SQ 07/18/17 12:00 07/20/17 18:56 (Lopressor) 50 mg BID PO 07/18/17 09:00 07/23/17 08:58 (Ferrous Sulfate) 325 mg DAILY PO 07/18/17 09:00 07/23/17 08:58 Levofloxacin/ Dextrose 150 ml @ 100 mls/hr Q24H IV 07/18/17 10:00 07/22/17 15:50 Pharmacy Profile Note 0 ml @ 0 mls/hr UNSCH OTHER 07/18/17 08:00 (Tylenol 650 Mg/ 20 ml Liq) 650 mg Q6H PRN PO 07/18/17 13:30 (Apresoline Inj) 10 mg Q1H PRN IV PUSH 07/18/17 14:15 07/23/17 03:02 (Nitroglycerin 2% Oint) 2 inch Q6H PRN TOPICAL 07/18/17 14:15 (Trandate Inj) 5 mg Q1H PRN IV PUSH 07/18/17 14:15 Heparin Sodium/ Dextrose 250 ml @ 5 mls/hr TITRATE PRN IV 07/19/17 16:00 Future Hold 07/20/17 00:51 (Ebony 5-325 Mg) 1 tab Q6H PRN PO 07/19/17 21:30 07/21/17 05:47 (Ebony 5-325 Mg) 2 tab Q6H PRN PO 07/20/17 00:44 07/23/17 01:32 Vancomycin HCl 750 mg/Sodium Chloride 257.5 ml @ 250 mls/hr Q24H IV 07/20/17 12:00 Future Hold 07/21/17 12:03 (Santyl Oint) 1 applic DAILY TOPICAL 07/21/17 17:00 07/23/17 09:01 (Ralls [place]) 2 spray Q4H PRN EACH NARE 07/22/17 18:15 07/23/17 01:32 (Procardia Xl) 30 mg BID PO 07/23/17 09:00 Lines Line sites with no e.o infection Past Medical History Past Medical History Pulmonary hypertension ? Type III Coronary artery disease PVD Past Surgical History Right ankle wound Stent ? transhepatic biliary stent and iliac stent. RCA stent IVC filter ? Fem Pop bypass per records. Allergies: Coded Allergies: No Known Allergies (Unverified , 07/18/17) Objective . Vital Signs Date Time Temp Pulse Resp B/P (MAP) Pulse Ox O2 Delivery O2 Flow Rate FiO2 07/23/17 06:00 65 07/23/17 04:00 98.7 65 17 174/74 (107) 96 07/23/17 04:00 71 07/23/17 02:00 71 07/23/17 00:25 98.2 67 28 188/88 95 07/23/17 00:00 66 07/23/17 00:00 98.2 66 21 188/88 (121) 96 07/22/17 22:00 70 07/22/17 21:10 98.6 74 28 195/88 97 07/22/17 20:41 98.1 75 24 188/101 07/22/17 20:05 96 07/22/17 20:00 98.1 83 33 188/101 (130) 98 07/22/17 20:00 83 07/22/17 18:34 98.1 79 20 172/79 98 07/22/17 18:19 98.9 78 22 177/79 99 07/22/17 18:00 80 25 180/78 (112) 98 07/22/17 18:00 80 07/22/17 16:00 78 07/22/17 16:00 98.9 78 26 156/69 (98) 97 07/22/17 15:00 77 07/22/17 15:00 77 19 155/70 (98) 99 07/22/17 14:00 77 24 147/66 (93) 98 07/22/17 14:00 77 07/22/17 13:00 73 25 175/74 (107) 100 07/22/17 13:00 73 07/22/17 12:00 72 07/22/17 12:00 99.0 72 23 154/72 (99) 100 07/22/17 11:00 72 22 161/72 (101) 97 07/22/17 11:00 70 10/12/17 10:00 83 07/22/17 10:00 83 23 173/118 (136) 98 . Laboratory Tests Test 07/22/17 11:52 07/23/17 06:52 White Blood Count 8.9 TH/MM3 11.9 TH/MM3 Red Blood Count 2.41 MIL/MM3 3.95 MIL/MM3 Hemoglobin 7.6 GM/DL 12.2 GM/DL Hematocrit 22.6 % 35.9 % Mean Corpuscular Volume 93.9 FL 90.7 FL Mean Corpuscular Hemoglobin 31.5 PG 31.0 PG Mean Corpuscular Hemoglobin Concent 33.6 % 34.1 % Red Cell Distribution Width 15.4 % 15.6 % Platelet Count 232 TH/MM3 234 TH/MM3 Mean Platelet Volume 6.8 FL 6.8 FL Neutrophils (%) (Auto) 78.3 % Lymphocytes (%) (Auto) 11.2 % Monocytes (%) (Auto) 10.4 % Eosinophils (%) (Auto) 0.0 % Basophils (%) (Auto) 0.1 % Neutrophils # (Auto) 9.3 TH/MM3 Lymphocytes # (Auto) 1.3 TH/MM3 Monocytes # (Auto) 1.2 TH/MM3 Eosinophils # (Auto) 0.0 TH/MM3 Basophils # (Auto) 0.0 TH/MM3 CBC Comment DIFF FINAL Differential Comment Laboratory Tests Test 07/22/17 11:52 07/23/17 06:52 Blood Urea Nitrogen 45 MG/DL 49 MG/DL Creatinine 1.50 MG/DL 1.44 MG/DL Random Glucose 103 MG/DL 97 MG/DL Total Protein 6.2 GM/DL 5.9 GM/DL Albumin 2.6 GM/DL 2.6 GM/DL Calcium Level 7.2 MG/DL 7.9 MG/DL Alkaline Phosphatase 93 U/L 88 U/L Aspartate Amino Transf (AST/SGOT) 27 U/L 22 U/L Alanine Aminotransferase (ALT/SGPT) 28 U/L 25 U/L Total Bilirubin 0.2 MG/DL 0.8 MG/DL Sodium Level 140 MEQ/L 143 MEQ/L Potassium Level 3.9 MEQ/L 3.7 MEQ/L Chloride Level 114 MEQ/L 115 MEQ/L Carbon Dioxide Level 17.2 MEQ/L 16.8 MEQ/L Anion Gap 9 MEQ/L 11 MEQ/L Estimat Glomerular Filtration Rate 34 ML/MIN 36 ML/MIN Protein Corrected Calcium 7.7 MG/DL Lipase 1375 U/L 4684 U/L Imaging Last Impressions Lower Extremity Ultrasound 07/21/17 0000 Signed Impressions: Service Date/Time: Friday, July 21, 2017 17:45 - CONCLUSION: No evidence of DVT. Harry Maxwell MD Foot X-Ray 07/21/17 0000 Signed Impressions: Service Date/Time: Friday, July 21, 2017 16:00 - CONCLUSION: Osteopenia without definite fracture. Neftaly Esquivel MD FACR Chest X-Ray 07/20/17 0600 Signed Impressions: Service Date/Time: Thursday, July 20, 2017 04:12 - CONCLUSION: Interval extubation. Persistent bilateral infiltrates. Fortunato Pickett MD Lower Extremity CT 07/20/17 0000 Signed Impressions: Service Date/Time: Thursday, July 20, 2017 15:47 - CONCLUSION: Extensive soft tissue swelling involving the proximal thigh without discrete fluid collection or abscess. Status post femoral popliteal grafting and endovascular stenting. Aurelio Mccray MD Cholangiopancreatography MRI 07/19/17 0000 Signed Impressions: Service Date/Time: Wednesday, July 19, 2017 21:49 - CONCLUSION: 1. Cholelithiasis without evidence of common duct stone 2. Dilatation and irregularity of the pancreatic duct characteristic of chronic pancreatitis Dk Berger MD Head CT 07/18/17 0000 Signed Impressions: Service Date/Time: Tuesday, July 18, 2017 04:29 - CONCLUSION: Normal examination. Tha Shaw Jr., MD Abdomen/Pelvis CT 07/18/17 0000 Signed Impressions: Service Date/Time: Wednesday, July 19, 2017 12:56 - CONCLUSION: 1. Small bilateral pleural effusions with associated atelectasis at the lung bases. 2. Distended gallbladder containing calcified gallstones with prominent common bile duct and mild central intrahepatic ductal dilatation. Distal CBD stone noted on ultrasound exam earlier today is not definitively visualized although the findings are concerning for at least partial distal CBD obstruction. 3. Coarse calcifications in the pancreatic head consistent with prior pancreatitis. Possible pancreatic cysts demonstrated on ultrasound are not definitively demonstrated although region of low density near the pancreatic head likely corresponds to dilated common bile duct. Overall evaluation is limited due to lack of IV contrast. 4. Findings consistent with medullary nephrocalcinosis. Lobo Kessler MD Abdomen Ultrasound 07/18/17 0000 Signed Impressions: Service Date/Time: Tuesday, July 18, 2017 17:05 - CONCLUSION: 1. Echogenic kidneys noted bilaterally with bilateral cysts. 2. Dilated common bile duct and choledocholith.. 3. Cholelithiasis. 4. The proximal pancreas is not well-visualized with areas suggesting pancreatic cysts and calcifications. 5. Small left pleural effusion. 6. Heterogeneous liver suggesting underlying hepatitis. Reno Ortez MD Assessment & Plan Remarks Chronic thigh wound/? abscess partially treated with outpt oral abx. r.o Rt thigh cellulitis rule out Fem Pop by pass related infection (Pseudoaneurysm infection) S/p outpt derm biopsy at office. Records requested ? Malignancy ? infection or both. PVD CAD Gall stones. Acute on chronic renal failure. Pneumonia Lab evidence of elevated Lipase ? Pancreatitis. Clinically no abd pain per pt. Ex smoker: counseled to keep abstaining. Recs: Continue Levaquin DC Vanco IV for now. Not candidate for Zyvox (SSRI interaction) Continue wound care instructions. Ct thigh noted will d.w Surgery and IR if connected to underlying vasculature. WBC scan today. The CTA will help rule out aneursym related infection. Chronic thigh wound could be infection or non infection related. WBC scan recruitment will help confirm infection. If WBC scan negative and the outpt biopsy was cancer will need to r/o deeper cancer spread locally. D.w , pt I will be OOT from 07/24/17 to 08/01/17. Other ID MDs covering for me. Amee Polanco MD Jul 23, 2017 09:54
--- NOTE | 2017-07-23 10:34 | RADRPT ---
EXAM DATE/TIME: 07/22/2017 13:17 [facility] COMPARISON: CHEST SINGLE AP, July 20, 2017, 4:12. CT FEMUR RIGHT W CONTRAST, July 20, 2017, 15:47. INDICATIONS : Right thigh abscess. DOSE: 22 mCi Tc99m Ceretec labeled white blood cells IV PLANAR IMAGIN min, 3 hrs, 20 hrs MEDICAL HISTORY : Deep venous thrombosis. Peripheral vascular disease. Chronic obstructive pulmonary disease. Hypertens ion. Myocardial infarction. Smoker. SURGICAL HISTORY : Coronary artery stent. ENCOUNTER: Initial ACUITY: 4 - 6 days PAIN SCALE: 2/10 LOCATION: Right Leg. TECHNIQUE: Following the in vitro labeling of autologous white cells and reinjection, whole body scan was perfor med at specified times. FINDINGS: Minimal uptake laterally right thigh. Minimal persistent lung uptake chest x-ray pending. CONCLUSION: Minimal uptake lateral right thigh. Ultrasound could be used to look for discrete fl uid collection. Neftaly Esquivel MD FACR on July 23, 2017 at 10:31 Board Certified Radiologist. This report was verified electronically.
[2017-07-23] MEDS: LEVOFLOXACIN 750 MG PREMIX INJ 150 ML IV SCH (11:03)
[2017-07-23] MEDS: ARTIFICIAL TEARS OPTH SOLN 15 ML BTL EACH EYE SCH ×3 (11:03→17:40)
[2017-07-23] MEDS: NIFEdipine 30 MG SUSTAINED RELEASE TAB PO SCH ×2 (11:03→21:29)
[2017-07-23] MEDS: DOXYCYCLINE HYCLATE 100 MG CAP PO SCH ×2 (11:07→21:20)
[2017-07-23] MEDS: ENOXAPARIN SODIUM 30 MG/0.3 ML SYRINGE SQ SCH (11:08)
--- NOTE | 2017-07-23 11:19 | RADRPT ---
EXAM DATE/TIME: 07/23/2017 10:39 [facility] COMPARISON: CHEST SINGLE AP, July 20, 2017, 4:12. INDICATIONS : Evaluate for pneumonia. Shortness of breath. MEDICAL HISTORY : Hypertension. Lupus. Smoker. SURGICAL HISTORY : Coronary artery stent. ENCOUNTER: Subsequent ACUITY: 4 - 6 days PAIN SCORE: 0/10 LOCATION: Bilateral chest FINDINGS: The cardiac silhouette is enlarged in transverse diameter. There is left lower lobe atelectasis versu s pneumonia. There are findings of congestive heart failure with interstitial and alveolar opacity bi laterally. A small left sided effusion is present. CONCLUSION: 1. Cardiomegaly and findings of congestive heart failure. There has been no significant change when c ompared to the prior exam. 2. Left lower lobe atelectasis versus pneumonia. Dk Berger MD on July 23, 2017 at 11:17 Board Certified Radiologist. This report was verified electronically.
--- NOTE | 2017-07-23 11:41 | HHI.PR ---
Subjective Remarks Pt has NO new complaints. No fever. Pt does c/o increased pain from chronic non-healing ulcer at medial right malleolus limiting her attempts to ambulate. Objective Vitals Vital Signs Date Time Temp Pulse Resp B/P (MAP) Pulse Ox O2 Delivery O2 Flow Rate FiO2 07/23/17 10:00 81 07/23/17 08:00 76 07/23/17 08:00 98.5 76 21 176/81 (112) 96 07/23/17 06:00 65 07/23/17 04:00 98.7 65 17 174/74 (107) 96 07/23/17 04:00 71 07/23/17 02:00 71 07/23/17 00:25 98.2 67 28 188/88 95 07/23/17 00:00 66 07/23/17 00:00 98.2 66 21 188/88 (121) 96 07/22/17 22:00 70 07/22/17 21:10 98.6 74 28 195/88 97 07/22/17 20:41 98.1 75 24 188/101 07/22/17 20:05 96 07/22/17 20:00 98.1 83 33 188/101 (130) 98 07/22/17 20:00 83 07/22/17 18:34 98.1 79 20 172/79 98 07/22/17 18:19 98.9 78 22 177/79 99 07/22/17 18:00 80 25 180/78 (112) 98 07/22/17 18:00 80 07/22/17 16:00 78 07/22/17 16:00 98.9 78 26 156/69 (98) 97 07/22/17 15:00 77 07/22/17 15:00 77 19 155/70 (98) 99 07/22/17 14:00 77 24 147/66 (93) 98 07/22/17 14:00 77 07/22/17 13:00 73 25 175/74 (107) 100 07/22/17 13:00 73 07/22/17 12:00 72 07/22/17 12:00 99.0 72 23 154/72 (99) 100 Result Diagram: 07/23/17 0652 07/23/1752 Imaging Last Impressions Lower Extremity Ultrasound 07/21/17 0000 Signed Impressions: Service Date/Time: Friday, July 21, 2017 17:45 - CONCLUSION: No evidence of DVT. Harry Maxwell MD Foot X-Ray 07/21/17 0000 Signed Impressions: Service Date/Time: Friday, July 21, 2017 16:00 - CONCLUSION: Osteopenia without definite fracture. Neftaly Esquivel MD FACR Chest X-Ray 07/20/17 0600 Signed Impressions: Service Date/Time: Thursday, July 20, 2017 04:12 - CONCLUSION: Interval extubation. Persistent bilateral infiltrates. Fortunato Pickett MD Lower Extremity CT 07/20/17 0000 Signed Impressions: Service Date/Time: Thursday, July 20, 2017 15:47 - CONCLUSION: Extensive soft tissue swelling involving the proximal thigh without discrete fluid collection or abscess. Status post femoral popliteal grafting and endovascular stenting. Aurelio Mccray MD Cholangiopancreatography MRI 07/19/17 0000 Signed Impressions: Service Date/Time: Wednesday, July 19, 2017 21:49 - CONCLUSION: 1. Cholelithiasis without evidence of common duct stone 2. Dilatation and irregularity of the pancreatic duct characteristic of chronic pancreatitis Dk Berger MD Head CT 07/18/17 0000 Signed Impressions: Service Date/Time: Tuesday, July 18, 2017 04:29 - CONCLUSION: Normal examination. Tha Shaw Jr., MD Abdomen/Pelvis CT 07/18/17 0000 Signed Impressions: Service Date/Time: Wednesday, July 19, 2017 12:56 - CONCLUSION: 1. Small bilateral pleural effusions with associated atelectasis at the lung bases. 2. Distended gallbladder containing calcified gallstones with prominent common bile duct and mild central intrahepatic ductal dilatation. Distal CBD stone noted on ultrasound exam earlier today is not definitively visualized although the findings are concerning for at least partial distal CBD obstruction. 3. Coarse calcifications in the pancreatic head consistent with prior pancreatitis. Possible pancreatic cysts demonstrated on ultrasound are not definitively demonstrated although region of low density near the pancreatic head likely corresponds to dilated common bile duct. Overall evaluation is limited due to lack of IV contrast. 4. Findings consistent with medullary nephrocalcinosis. Lobo Kessler MD Abdomen Ultrasound 07/18/17 0000 Signed Impressions: Service Date/Time: Rashid, July 18, 2017 17:05 - CONCLUSION: 1. Echogenic kidneys noted bilaterally with bilateral cysts. 2. Dilated common bile duct and choledocholith.. 3. Cholelithiasis. 4. The proximal pancreas is not well-visualized with areas suggesting pancreatic cysts and calcifications. 5. Small left pleural effusion. 6. Heterogeneous liver suggesting underlying hepatitis. Reno Ortez MD Objective Remarks GENERAL: THIN, frail, NAD CARDIOVASCULAR: Regular rate and rhythm without murmurs, gallops, or rubs. RESPIRATORY: Clear to auscultation. Breath sounds equal bilaterally. No wheezes , rales, or rhonchi. GASTROINTESTINAL: Abdomen soft, non-tender, nondistended. No hepato-splenomegaly , or palpable masses. No guarding. MUSCULOSKELETAL: skin changes at feet and ankles c/w PVD. Pt has chronic non- healing wound at right medial malleolus without indurating or purulent discharge , smaller wound at lateral aspect of the right ankle wound at right groin appears to be healing well. NEUROLOGICAL: Awake and alert. No focal deficits. Motor and sensory grossly within normal limits. Five out of 5 muscle strength in all muscle groups. Normal speech. A/P Problem List: (1) Acute hypoxemic respiratory failure ICD Codes: J96.01 - Acute respiratory failure with hypoxia Plan: Acute hypoxic respiratory failure 50 year tobacco history - Pt was successfully Extubated 07/19, pt is stable on RA - duonebs q6H WA & q2H prn - Budesonide aerosols 0.5/2 1 inhalation twice a day - NO infectious etiology to pt's admission has been identified - More likely that pt's decline was d/t her chronic cardiac and pulmonary disease - Pt is at high risk of recurrent respiratory failure, and I have explained this to pt and . - Await Palliative Consult. Hospice would be appropriate - d/t generalized weakness SNF would be appropriate at the end of current hospitalization. Pt/ NOT interested at SNF at this time. - DVT prophylaxis Coronary artery disease status post stent RCA 03/27 Dr. Monique Pulmonary edema Peripheral arterial disease status post lower extremity stenting Hypertension Dyslipidemia Pulmonary hypertension likely type III Hypothermia EKG on admission revealed normal sinus rhythm 80. IVCD with a QRS [address] elevation. Troponin 0.03. Dr. Quach/Minor are her director index Echocardiogram 05/27 revealed EF around 50-55%. No regional wall motion abnormality Metoprolol 50 mg twice a day for hypertension Lasix 40 mg iv X1 07/19 Holding amlodipine 5 mill grams daily and lisinopril 5 mill grams daily. Resume when clinically indicated Resumed atorvastatin 20 mg daily for dyslipidemia Resumed aspirin 81 mg daily and clopidogrel 75 mg daily for stent. Vascular surgery consult Dr. Heart does not feel the Fem Pop bypass is infected. CT R thigh with contrast did not show any abscess. Cholelithiasis Pancreatitis MRCP: Cholelithiasis without evidence of common duct stone. Dilatation and irregularity of the pancreatic duct characteristic of chronic pancreatitis Clear liquid diet. Appreciate GI consult signed off. General surgery also consulted do not feel surgery is indicated at this time- rec F/U as outpatient- also signed off Lansoprazole for GI prophylaxis CT abdomen and pelvis did not show definite CBD stone but some evidence of partial common bile duct obstruction Docusate sodium/senna 1 tablet twice a day for bowel regimen - increased lipase, but NO c/o abdominal pain - continue current diet for now - repeat lipase in AM History of RA Lupus? Hydroxychloroquine 200 mg daily for her underlying rheumatologic disorder Currently on sliding scale insulin with Novolin moderate protocol with Accu- Cheks every 6 hours to maintain euglycemia Acute kidney injury History of nephrolithiasis Creatinine currently stable. Will DC IVF tolerating clear Monitor urine output Accurate I's and O's Avoid nephrotoxic drugs Normocytic anemia Chronic warfarin use History of DVTs bilateral lower extremities DC warfarin Continue aspirin/clopidogrel pre Dr. Monique hgb 7.6 (07/22). Pt received 2 units PRBCs (07/22) - Hg 12.2 (07/23), repeat Hg in AM no signs of active bleeding, occult stool ordered INR 13.3, vitamin k 5mg PO x 1 - Case d/w Hematology, Dr. Saenz (07/23/17). - will give lovenox during hospitalization - consider resuming coumadin at discharge. Potentially being potentiated by antibiotics and poor PO intake. Probable right thigh cellulitis - Comgmt with ID Receive 1 dose of cefepime/azithromycin in ED. Noted allergy to cephalosporins and previous records Continue on levofloxacin, vancomycin, DC aztreonam. Zosyn 4.5 GM IV q6. Blood cultures 2, sputum, urine Legionella and pneumococcal antigens and influenza all negative wound culture positive for MRSA Urine culture growing pleomorphic gram-positive rods - Tagged WBC scan (07/22/17) Does not localize infection in lower extremities. 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 (3) Hyponatremia ICD Codes: E87.1 - Hypo-osmolality and hyponatremia (4) Normocytic anemia ICD Codes: D64.9 - Anemia, unspecified (5) Wounds, multiple open, lower extremity ICD Codes: S81.809A - Unspecified open wound, unspecified lower leg, initial encounter Status: Acute (6) COPD (chronic obstructive pulmonary disease) ICD Codes: J44.9 - Chronic obstructive pulmonary disease, unspecified Status: Chronic (7) Pulmonary hypertension due to COPD ICD Codes: I27.23 - Pulmonary hypertension due to lung diseases and hypoxia; J44.9 - Chronic obstructive pulmonary disease, unspecified (8) Coronary artery disease ICD Codes: I25.10 - Atherosclerotic heart disease of [place] coronary artery without angina pectoris (9) Depression ICD Codes: F32.9 - Major depressive disorder, single episode, unspecified (10) Dyslipidemia ICD Codes: E78.5 - Hyperlipidemia, unspecified (11) Hypertension ICD Codes: I10 - Essential (primary) hypertension (12) Lupus ICD Codes: L93.0 - Discoid lupus erythematosus (13) Lower leg DVT (deep venous thromboembolism), chronic ICD Codes: I82.5Z9 - Chronic embolism and thrombosis of unspecified deep veins of unspecified distal lower extremity (14) Nephrolithiasis ICD Codes: N20.0 - Calculus of kidney (15) Peripheral arterial occlusive disease ICD Codes: I77.9 - Disorder of arteries and arterioles, unspecified (16) Rheumatoid arthritis ICD Codes: M06.9 - Rheumatoid arthritis, unspecified Problem Qualifiers (1) Wounds, multiple open, lower extremity: Qualified Codes: S81.801D - Unspecified open wound, right lower leg, subsequent encounter (2) COPD (chronic obstructive pulmonary disease): Qualified Codes: J44.9 - Chronic obstructive pulmonary disease, unspecified (3) Coronary artery disease: Qualified Codes: I25.10 - Atherosclerotic heart disease of [place] coronary artery without angina pectoris (4) Depression: Qualified Codes: F32.9 - Major depressive disorder, single episode, unspecified (5) Hypertension: Qualified Codes: I10 - Essential (primary) hypertension (6) Lupus: Qualified Codes: L93.0 - Discoid lupus erythematosus (7) Lower leg DVT (deep venous thromboembolism), chronic: Qualified Codes: I82.5Z9 - Chronic embolism and thrombosis of unspecified deep veins of unspecified distal lower extremity Cristobal Larose DO Jul 23, 2017 11:41
--- NOTE | 2017-07-23 13:08 | PD.ONC.PN ---
Subjective Subjective Remarks Afebrile overnight. Resting in room in nad. No complaints. Objective Data Date Time Temp Pulse Resp B/P (MAP) Pulse Ox O2 Delivery O2 Flow Rate FiO2 07/23/17 10:00 81 07/23/17 08:00 76 07/23/17 08:00 98.5 76 21 176/81 (112) 96 07/23/17 06:00 65 07/23/17 04:00 98.7 65 17 174/74 (107) 96 07/23/17 04:00 71 07/23/17 02:00 71 07/23/17 00:25 98.2 67 28 188/88 95 07/23/17 00:00 66 07/23/17 00:00 98.2 66 21 188/88 (121) 96 07/22/17 22:00 70 07/22/17 21:10 98.6 74 28 195/88 97 07/22/17 20:41 98.1 75 24 188/101 07/22/17 20:05 96 07/22/17 20:00 98.1 83 33 188/101 (130) 98 07/22/17 20:00 83 07/22/17 18:34 98.1 79 20 172/79 98 07/22/17 18:19 98.9 78 22 177/79 99 07/22/17 18:00 80 25 180/78 (112) 98 07/22/17 18:00 80 07/22/17 16:00 78 07/22/17 16:00 98.9 78 26 156/69 (98) 97 07/22/17 15:00 77 07/22/17 15:00 77 19 155/70 (98) 99 07/22/17 14:00 77 24 147/66 (93) 98 07/22/17 14:00 77 07/22/17 13:00 73 25 175/74 (107) 100 07/22/17 13:00 73 07/23/17 07/23/17 07/23/17 07:00 15:00 23:00 Intake Total 550 ml Output Total 1850 ml Balance -1300 ml Result Diagram: 07/23/17 0652 07/23/17 0652 Laboratory Results Laboratory Tests Test 07/23/17 06:52 White Blood Count 11.9 TH/MM3 Red Blood Count 3.95 MIL/MM3 Hemoglobin 12.2 GM/DL Hematocrit 35.9 % Mean Corpuscular Volume 90.7 FL Mean Corpuscular Hemoglobin 31.0 PG Mean Corpuscular Hemoglobin Concent 34.1 % Red Cell Distribution Width 15.6 % Platelet Count 234 TH/MM3 Mean Platelet Volume 6.8 FL Neutrophils (%) (Auto) 78.3 % Lymphocytes (%) (Auto) 11.2 % Monocytes (%) (Auto) 10.4 % Eosinophils (%) (Auto) 0.0 % Basophils (%) (Auto) 0.1 % Neutrophils # (Auto) 9.3 TH/MM3 Lymphocytes # (Auto) 1.3 TH/MM3 Monocytes # (Auto) 1.2 TH/MM3 Eosinophils # (Auto) 0.0 TH/MM3 Basophils # (Auto) 0.0 TH/MM3 CBC Comment DIFF FINAL Differential Comment Prothrombin Time 18.9 SEC Prothromb Time International Ratio 1.7 RATIO Blood Urea Nitrogen 49 MG/DL Creatinine 1.44 MG/DL Random Glucose 97 MG/DL Total Protein 5.9 GM/DL Albumin 2.6 GM/DL Calcium Level 7.9 MG/DL Alkaline Phosphatase 88 U/L Aspartate Amino Transf (AST/SGOT) 22 U/L Alanine Aminotransferase (ALT/SGPT) 25 U/L Total Bilirubin 0.8 MG/DL Sodium Level 143 MEQ/L Potassium Level 3.7 MEQ/L Chloride Level 115 MEQ/L Carbon Dioxide Level 16.8 MEQ/L Anion Gap 11 MEQ/L Estimat Glomerular Filtration Rate 36 ML/MIN Lipase 4684 U/L Random Vancomycin Level 21.8 COMMENT Administered Medications Medications (Trade) Dose Ordered Sig/Sarah Route PRN Reason Start Time Stop Time Status Last Admin Dose Admin Sodium Chloride (NS Flush) 2 ml UNSCH PRN IV FLUSH FLUSH AFTER USING IV ACCESS 07/18/17 07:00 07/22/17 20:05 Sodium Chloride (NS Flush) 2 ml BID IV FLUSH 07/18/17 09:00 07/23/17 09:00 Lansoprazole (Prevacid Odt) 30 mg DAILY G-TUBE 07/18/17 09:00 07/23/17 08:59 Artificial Tears (Tears Naturale Opth Soln) 1 drop TID EACH EYE 07/18/17 09:00 07/23/17 11:03 Chlorhexidine Gluconate (Chlorhexidine 2% Cloth) 3 pack Taper DAILY@04 TOP 07/19/17 04:00 07/15/18 03:59 07/23/17 04:00 Senna/Docusate Sodium (Juana-Colace) 1 tab BID PO 07/18/17 09:00 07/21/17 21:25 Chlorhexidine Gluconate (Peridex 0.12% Liq) 15 ml BID@08,20 MT 07/18/17 08:00 07/19/17 09:56 Aspirin (Aspirin Chew) 81 mg DAILY CHEW 07/18/17 09:00 07/23/17 08:58 Clopidogrel Bisulfate (Plavix) 75 mg DAILY PO 07/18/17 09:00 07/23/17 08:57 Hydroxychloroquine Sulfate (Plaquenil) 200 mg DAILY PO 07/18/17 09:00 07/23/17 08:58 Atorvastatin Calcium (Lipitor) 20 mg DAILY PO 07/18/17 09:00 07/23/17 08:59 Mirtazapine (Remeron) 15 mg HS PO 07/18/17 21:00 07/22/17 20:03 Sertraline HCl (Zoloft) 50 mg DAILY PO 07/18/17 09:00 07/23/17 08:59 Budesonide (Pulmicort Respule Neb) 0.5 mg Q12HR NEB NEB 07/18/17 08:00 07/22/17 09:11 Methylprednisolone Sodium Succinate (SoluMEDROL INJ) 40 mg Q8HR IV PUSH 07/18/17 14:00 07/23/17 12:34 Insulin Human Regular (NovoLIN R SUPPLEMENTAL SCALE) 1 Q6HR SQ 07/18/17 12:00 07/23/17 12:00 Metoprolol Tartrate (Lopressor) 50 mg BID PO 07/18/17 09:00 07/23/17 08:58 Ferrous Sulfate (Ferrous Sulfate) 325 mg DAILY PO 07/18/17 09:00 07/23/17 08:58 Levofloxacin/ Dextrose 150 ml @ 100 mls/hr Q24H IV 07/18/17 10:00 07/23/17 11:03 Hydralazine HCl (Apresoline Inj) 10 mg Q1H PRN IV PUSH SBP>160, DBP>90 07/18/17 14:15 07/23/17 11:03 Acetaminophen/ Hydrocodone Bitart ([place] 5-325 Mg) 1 tab Q6H PRN PO PAIN 3-04/1907/19/17 21:30 07/21/17 05:47 Acetaminophen/ Hydrocodone Bitart ([place] 5-325 Mg) 2 tab Q6H PRN PO PAIN 8-07/2007/20/17 00:44 07/23/17 01:32 Collagenase (Santyl Oint) 1 applic DAILY TOPICAL 07/21/17 17:00 07/23/17 09:01 Sodium Chloride ([place] Armando [place]) 2 spray Q4H PRN EACH NARE NASAL CONGESTION 07/22/17 18:15 07/23/17 01:32 Nifedipine (Procardia Xl) 30 mg BID PO 07/23/17 09:00 07/23/17 11:03 Doxycycline Hyclate (Vibramycin) 100 mg BID PO 07/23/17 10:00 07/23/17 11:07 Enoxaparin Sodium (Lovenox Inj) 30 mg Q24H SQ 07/23/17 10:45 07/23/17 11:08 Objective Remarks GENERAL: Elderly female upright in chair next to bed in [facility]. SKIN: Warm and dry. HEAD: Normocephalic. EYES: No injection or drainage. NECK: Supple, trachea midline. CARDIOVASCULAR: Regular rate and rhythm RESPIRATORY: diminished at bases, anterior mendoza clear. GASTROINTESTINAL: Abdomen soft, non-tender, nondistended. EXTREMITIES: No cyanosis. bandage, LLE, c/d/i. NEUROLOGICAL: awake and alert Assessment/Plan Problem List: (1) Coagulopathy ICD Codes: D68.9 - Coagulation defect, unspecified Plan: -- Coagulopathy likely from coumadin with interaction with Levaquin -- s/p pRBC, hgb improved. -- s/p vitamin K -- Still with epistaxis Hx/Workup: Has been on Coumadin for the past 8-10 years after she had a right lower extremity DVT. Most recently she also had coronary artery stent placement and was started on Plavix. Her INR has increased from 1.7-11.1. Yesterday her INR was down to 3.9 however today it is back up again to 13.3. She is status post femoropopliteal bypass and right iliac artery stent placement. Assessment 72 y/o female admitted with sepsis; hematology consulted for coagulaopathy Plan 1. INR improved. d/w Dr. Larose. will continue prophylactic dose Lovenox for now d/t high fall/bleeding risk. will hold off on full dose anticoagulation 2. monitor CBC Attending Statement The exam, history, and the medical decision-making described in the above note were completed with the assistance of the mid-level provider. I reviewed and agree with the findings presented. I attest that I had a [id number] encounter with the patient on the same day, and personally performed and documented my assessment and findings in the medical record. No bleeding noted. No LE edema. Hgb trended up with transfusion. INR now 1.7. Can restart heparin and bridge to coumadin if no invasive procedure is planned. Discussed with . Caron Monge Jul 23, 2017 13:08 Ethan Saenz MD Jul 23, 2017 15:05
[2017-07-23] MEDS: RESP: ALBUTEROL 2.5 MG/IPRATROPIUM 0.5 MG NEB (SCH) NEB ×2 (13:16→19:24)
--- NOTE | 2017-07-23 14:45 | PD.CONS ---
Consult Service Palliative Care Consult Requested By Dr. Larose. . Primary Care Physician Unknown Reason for Consultation a. To assist with evaluation and management of symptoms including: dyspnea, debility, pain b. To assist medical decision maker(s) with: better understanding of current medical conditions; weighing benefits/burdens of medical treatment options; making medical treatment decisions. . HPI History of Present Illness Patient is a 72 year old female who presented to the ED via EMS on 07/18/17 for shortness of breath. The patient's alerted EMS of patient's shortness of breath from their home, upon arrival of EMS the patient was found to have an oxygen saturation of 75% on room air, despite applying oxygen the patient continued to be dyspneic and hypoxic, and she was subsequently intubated in the field. * ED workup included: Significant laboratory data: Hb.2, Na:130, BUN:37, Creatinine:1.38, eGFR:33, BNP:1097, Total protein:6.0, Albumin:2.6, Amylase:687 , Lipase:67542. ECG: NSR. CT head: Negative. Chest CXR: Cardiomegaly. Bilateral pulmonary infiltrates. Abdomen/pelvis CT: Distended gallbladder with calcified gallstones with prominent common bile duct and mild central intrahepatic ductal dilatation. Coarse calcifications in the pancreatic head consistent with prior pancreatitis. Abdominal U/S: Echogenic kidneys with bilateral cysts. Cholelithiasis. Heterogenous liver suggesting underlying hepatitis. Patient found to have a right thigh abscess, she underwent I & D and cultures were sent. * Patient admitted to ICU, patient hypothermic on arrival temp:90.5, patient placed on a warming blanket, sedated with propofol, patient was arousable at this time but not following commands. * 07/19/17 GI consulted to evaluate acute pancreatitis, cholelithiasis, and biliary dilatation. MRCP: Cholelithiasis without evidence of common duct stone. Dilatation and irregularity of the pancreatic duct characteristic of chronic pancreatitis. GI signed off 07/20. * 07/20/17: Extubated. Cardiology consulted to evaluate PAD for the nonhealing wound on her RLE, per patient/ the wound has been present for over ten years and she was following with dermatology plan for CTA once BUN/creatinine improve. INR:11.1 today, patient received 2 units of FFP post transfusion INR: 3.9. * 07/21/17: ID consulted to evaluate patient's wound on her RLE for underlying infection, R/O femoral popliteal bypass related infection (pseudoaneurysm infection), R/O cancer, WBC scan ordered to confirm infection. * Cardiovascular surgery consulted, CT lower extremity: Extensive soft tissue swelling involving the proximal thigh without discrete fluid collection or abscess, from review of CT Dr. Larson determined that the fem pop bypass is not infection, CTA for evaluation of revascularization planned. * Oncology consulted 07/21/17 for coagulopathy and recommendation for anticoagulation, patient on Coumadin for the past 8-10 years for RLE DVT. Recommendation to continue Coumadin at a lower dose, patient stated she is not interested in changing her current anticoagulation medication. * 07/22/17: Patient's hemoglobin dropped from 9.2 to 7.6, INR:13.3, patient with epistaxis, received vitamin K and 2 units PRBCs. Wound culture positive for MRSA. * 07/23/17: Chest CXR: Cardiomegaly and findings consistent with CHF. Left lower lobe atelectasis versus pneumonia. Lipase increased today from yesterday, 4684 from 1375. Palliative care consulted today to assist with goals of care due to patient's high risk for respiratory decompensation in the future. Patient seen and examined in room today, sitting up in chair, alert, awake, and oriented x 3. Patient is on room air, denies any shortness of breath, chest pain , abdominal pain, nausea, or vomiting. Patient stated she has been experiencing epistaxis intermittently throughout the day today. The patient stated her appetite is poor but also states she has been thin her entire life and has never had much of an appetite. Palliative care consulted to assist with goals of care to provide support/ guidance regarding medical treatment benefit/burden medical treatment options. Function/Cognitive Trajectory The patient's health has been deteriorating for some time, she stated that back in 2000 when she was first diagnosed with lupus her health began failing her. She states she is able to walk around with a walker to get around the house, she is unable to walk any further distance i.e. grocery shopping and she utilizes a scooter during these instances. Patient states she has had more health issues and complications over the past few months. . Review of Systems Constitutional: COMPLAINS OF: Fatigue, Generalized weakness Eyes: DENIES: Blurred vision Ears, nose, mouth, throat: COMPLAINS OF: Epistaxis Respiratory: COMPLAINS OF: Shortness of breath, DENIES: Cough Cardiovascular: DENIES: Chest pain, Syncope, Dyspnea on Exertion, Lower Extremity Edema Gastrointestinal: DENIES: Constipation, Nausea, Vomiting Neurologic: COMPLAINS OF: Tremor Psychiatric: DENIES: Anxiety, Depression Past Family Social History Coded Allergies: No Known Allergies (Unverified , 07/18/17) Past Medical History Rheumatoid arthritis Lupus since 1999 Sjogren's syndrome Stage III CKD Osteoporosis Dysphagia, malnutrition in past requiring feeding tube Pulmonary hypertension COPD CAD PAD Hx lower extremity DVT CHF Nephrolithiasis Lupus RA Depression HTN Hyperlipidemia Nonhealing decubitus ulcer right ankle LENNY Hx colon polyps (2 in 2013, 2 in 2008) Past Surgical History Right ankle ORIF Cardiac catheterization with stent placement IVC filter Iliac stent placement Cataract surgery Colonoscopy Hip repair Parathyroid surgery Tubal ligation Venous thrombectomy Right femur rodding and later removal Fem pop bypass . Reported Medications Reported Meds & Active Scripts Active Reported Iron (Ferrous Sulfate) 18 Mg Tab 65 Mg PO DAILY Mirtazapine 30 Mg Tab 30 Mg PO HS Lopressor (Metoprolol Tartrate) 50 Mg Tab 50 Mg PO BID Lisinopril 5 Mg Tab 5 Mg PO DAILY Plaquenil (Hydroxychloroquine Sulfate) 200 Mg Tab 200 Mg PO DAILY Take with food Plavix (Clopidogrel Bisulfate) 75 Mg Tab 75 Mg PO DAILY Vitamin D3 (Cholecalciferol) 1,000 Unit Cap Unknown Dose PO DAILY Symbicort Inh (Budesonide/Formoterol Fumarate) 160-4.5 Mcg/Act Aero 1 Puff INH Q12HR Lipitor (Atorvastatin Calcium) 20 Mg Tab 20 Mg PO HS Coumadin (Warfarin) 5 Mg Tab 5 Mg PO DAILY Sertraline (Sertraline HCl) 50 Mg Tab 50 Mg PO DAILY Aspirin Children's (Aspirin) 81 Mg Chew 81 Mg PO DAILY . Current Medications Medications (Trade) Dose Ordered Sig/Sarah Route Start Time Stop Time Status Last Admin (NS Flush) 2 ml UNSCH PRN IV FLUSH 07/18/17 07:00 07/22/17 20:05 (NS Flush) 2 ml BID IV FLUSH 07/18/17 09:00 07/23/17 09:00 (Prevacid Odt) 30 mg DAILY G-TUBE 07/18/17 09:00 07/23/17 08:59 (Tears Naturale Opth Soln) 1 drop TID EACH EYE 07/18/17 09:00 07/23/17 11:03 (Zofran Inj) 4 mg Q6H PRN IV PUSH 07/18/17 07:00 (Albuterol Neb) 2.5 mg Q2HR NEB PRN INH 07/18/17 07:00 Miscellaneous Information 1 Q361D XX 07/18/17 07:00 (Chlorhexidine 2% Cloth) 3 pack Taper DAILY@04 TOP 07/19/17 04:00 07/15/18 03:59 07/23/17 04:00 (Chlorhexidine 2% Cloth) 3 pack UNSCH PRN TOP 07/18/17 07:00 (Juana-Colace) 1 tab BID PO 07/18/17 09:00 07/21/17 21:25 (Milk Of Magnesia Liq) 30 ml Q12H PRN PO 07/18/17 07:00 (Senokot) 17.2 mg Q12H PRN PO 07/18/17 07:00 (Dulcolax Supp) 10 mg DAILY PRN RECTAL 07/18/17 07:00 (Lactulose Liq) 30 ml DAILY PRN PO 07/18/17 07:00 (Peridex 0.12% Liq) 15 ml BID@08,20 MT 07/18/17 08:00 07/19/17 09:56 (Aspirin Chew) 81 mg DAILY CHEW 07/18/17 09:00 07/23/17 08:58 (Plavix) 75 mg DAILY PO 07/18/17 09:00 07/23/17 08:57 (Plaquenil) 200 mg DAILY PO 07/18/17 09:00 07/23/17 08:58 (Lipitor) 20 mg DAILY PO 07/18/17 09:00 07/23/17 08:59 (Remeron) 15 mg HS PO 07/18/17 21:00 07/22/17 20:03 (Zoloft) 50 mg DAILY PO 07/18/17 09:00 07/23/17 08:59 (Pulmicort Respule Neb) 0.5 mg Q12HR NEB NEB 07/18/17 08:00 07/22/17 09:11 (SoluMEDROL INJ) 40 mg Q8HR IV PUSH 07/18/17 14:00 07/23/17 12:34 (D50w (Vial) Inj) 50 ml UNSCH PRN IV PUSH 07/18/17 07:00 (Glucagon Inj) 1 mg UNSCH PRN OTHER 07/18/17 07:00 (NovoLIN R SUPPLEMENTAL SCALE) 1 Q6HR SQ 07/18/17 12:00 07/23/17 12:00 (Lopressor) 50 mg BID PO 07/18/17 09:00 07/23/17 08:58 (Ferrous Sulfate) 325 mg DAILY PO 07/18/17 09:00 07/23/17 08:58 Levofloxacin/ Dextrose 150 ml @ 100 mls/hr Q24H IV 07/18/17 10:00 07/23/17 11:03 (Tylenol 650 Mg/ 20 ml Liq) 650 mg Q6H PRN PO 07/18/17 13:30 (Apresoline Inj) 10 mg Q1H PRN IV PUSH 07/18/17 14:15 07/23/17 11:03 (Nitroglycerin 2% Oint) 2 inch Q6H PRN TOPICAL 07/18/17 14:15 (Trandate Inj) 5 mg Q1H PRN IV PUSH 07/18/17 14:15 ([place] 5-325 Mg) 1 tab Q6H PRN PO 07/19/17 21:30 07/21/17 05:47 ([place] 5-325 Mg) 2 tab Q6H PRN PO 07/20/17 00:44 07/23/17 01:32 (Santyl Oint) 1 applic DAILY TOPICAL 07/21/17 17:00 07/23/17 09:01 ([place] Armando Thrall) 2 spray Q4H PRN EACH NARE 07/22/17 18:15 07/23/17 01:32 (Procardia Xl) 30 mg BID PO 07/23/17 09:00 07/23/17 11:03 (Vibramycin) 100 mg BID PO 07/23/17 10:00 07/23/17 11:07 (Lovenox Inj) 30 mg Q24H SQ 07/23/17 10:45 07/23/17 11:08 (Duoneb Neb) 1 ampule Q6HR WHILE AWAKE NEB NEB 07/23/17 14:00 07/23/17 13:16 Family History Mother had heart disease Father with unknown type of cancer Substance Use Tobacco: 50 pack year history, recently quit 2 months ago. Alcohol: Drinks one beer daily Prescription med abuse: None reported Illicits:None reported . Psychosocial History Patient is originally from [place], she is , and has two daughters. Patient relocated to [place] a year ago. 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 . Spiritual/Cultural Factors No baptist affiliation. . Living Will: Completed, but not made available Health Care Surrogate: Completed, but not made available Durable Power of Business Line Manager: Completed, but not made available Ethical and Legal Issues None known. . Physical Exam Vital Signs Date Time Temp Pulse Resp B/P (MAP) Pulse Ox O2 Delivery O2 Flow Rate FiO2 07/23/17 13:17 97 21 07/23/17 12:00 72 07/23/17 12:00 98.5 72 28 157/72 (100) 97 07/23/17 10:00 81 07/23/17 08:00 76 07/23/17 08:00 98.5 76 21 176/81 (112) 96 07/23/17 06:00 65 07/23/17 04:00 98.7 65 17 174/74 (107) 96 07/23/17 04:00 71 07/23/17 02:00 71 07/23/17 00:25 98.2 67 28 188/88 95 07/23/17 00:00 66 07/23/17 00:00 98.2 66 21 188/88 (121) 96 07/22/17 22:00 70 07/22/17 21:10 98.6 74 28 195/88 97 07/22/17 20:41 98.1 75 24 188/101 07/22/17 20:05 96 07/22/17 20:00 98.1 83 33 188/101 (130) 98 07/22/17 20:00 83 07/22/17 18:34 98.1 79 20 172/79 98 07/22/17 18:19 98.9 78 22 177/79 99 07/22/17 18:00 80 25 180/78 (112) 98 07/22/17 18:00 80 07/22/17 16:00 78 07/22/17 16:00 98.9 78 26 156/69 (98) 97 07/22/17 15:00 77 07/22/17 15:00 77 19 155/70 (98) 99 07/22/17 14:00 77 24 147/66 (93) 98 07/22/17 14:00 77 07/23/17 07/24/17 19:00 07:00 Intake Total 150 ml Balance 150 ml IV Total 150 ml Exam CONSTITUTIONAL/GENERAL: This is a thin frail, elderly female patient. TUBES/LINES/DRAINS: PIV x 1, CVL RIJ, junior catheter SKIN: No jaundice, rashes, or lesions. Ecchymoses on upper extremities. Two small ulcers right groin, dry and scabbed over. Skin temperature appropriate. Not diaphoretic. HEAD: Atraumatic. Normocephalic. EYES: Pupils equal and round and reactive. Extraocular motions intact. No scleral icterus. No injection or drainage. Fundi not examined. ENT: Hearing grossly normal. Throat without visible erythema, exudates, masses, or lesions. NECK: Trachea midline. Supple, nontender. No palpable thyroid enlargement or nodularity. CARDIOVASCULAR: Regular rate and rhythm without murmurs, gallops, or rubs. No JVD. Unable to palpate pedal pulse on RLE. RESPIRATORY/CHEST: Symmetric, unlabored respirations. Clear to auscultation. Breath sounds equal bilaterally. No wheezes, rales, or rhonchi. GASTROINTESTINAL: Abdomen soft, non-tender, nondistended. No guarding. Bowel sounds present. GENITOURINARY: Without palpable bladder distension. Junior catheter in place. MUSCULOSKELETAL: Extremities without clubbing, cyanosis, or edema. No mottling or clubbing. LYMPHATICS: No palpable cervical or supraclavicular adenopathy. NEUROLOGICAL: Awake and alert. Motor and sensory grossly within normal limits. Follows commands. Cognitively sharp. Moves all extremities. PSYCHIATRIC: No obvious anxiety/depression. no apparent hallucinations or other psychotic thought process. Diagnostic Tests Laboratory Laboratory Tests Test 07/20/17 17:47 07/20/17 23:55 07/21/17 05:10 07/22/17 11:52 Prothrombin Time 135.8 SEC (9.8-11.6) 33.4 SEC (9.8-11.6) 45.5 SEC (9.8-11.6) 164.9 SEC (9.8-11.6) Prothromb Time International Ratio 11.1 RATIO 2.9 RATIO 3.9 RATIO 13.3 RATIO Activated Partial Thromboplast Time 54.6 SEC (24.3-30.1) White Blood Count 8.9 TH/MM3 (4.0-11.0) Red Blood Count 2.41 MIL/MM3 (4.00-5.30) Hemoglobin 7.6 GM/DL (11.6-15.3) Hematocrit 22.6 % (35.0-46.0) Mean Corpuscular Volume 93.9 FL (80.0-100.0) Mean Corpuscular Hemoglobin 31.5 PG (27.0-34.0) Mean Corpuscular Hemoglobin Concent 33.6 % (32.0-36.0) Red Cell Distribution Width 15.4 % (11.6-17.2) Platelet Count 232 TH/MM3 (150-450) Mean Platelet Volume 6.8 FL (7.0-11.0) Blood Urea Nitrogen 45 MG/DL (7-18) Creatinine 1.50 MG/DL (0.50-1.00) Random Glucose 103 MG/DL (74-106) Total Protein 6.2 GM/DL (6.4-8.2) Albumin 2.6 GM/DL (3.4-5.0) Calcium Level 7.2 MG/DL (8.5-10.1) Alkaline Phosphatase 93 U/L (45-117) Aspartate Amino Transf (AST/SGOT) 27 U/L (15-37) Alanine Aminotransferase (ALT/SGPT) 28 U/L (10-53) Total Bilirubin 0.2 MG/DL (0.2-1.0) Sodium Level 140 MEQ/L (136-145) Potassium Level 3.9 MEQ/L (3.5-5.1) Chloride Level 114 MEQ/L (98-107) Carbon Dioxide Level 17.2 MEQ/L (21.0-32.0) Anion Gap 9 MEQ/L (5-15) Estimat Glomerular Filtration Rate 34 ML/MIN (>89) Protein Corrected Calcium 7.7 MG/DL (8.5-10.1) Lipase 1375 U/L (73-393) Vancomycin Level Trough 22.9 MCG/ML (5.0-10.0) Test 07/23/17 06:52 White Blood Count 11.9 TH/MM3 (4.0-11.0) Red Blood Count 3.95 MIL/MM3 (4.00-5.30) Hemoglobin 12.2 GM/DL (11.6-15.3) Hematocrit 35.9 % (35.0-46.0) Mean Corpuscular Volume 90.7 FL (80.0-100.0) Mean Corpuscular Hemoglobin 31.0 PG (27.0-34.0) Mean Corpuscular Hemoglobin Concent 34.1 % (32.0-36.0) Red Cell Distribution Width 15.6 % (11.6-17.2) Platelet Count 234 TH/MM3 (150-450) Mean Platelet Volume 6.8 FL (7.0-11.0) Neutrophils (%) (Auto) 78.3 % (16.0-70.0) Lymphocytes (%) (Auto) 11.2 % (9.0-44.0) Monocytes (%) (Auto) 10.4 % (0.0-8.0) Eosinophils (%) (Auto) 0.0 % (0.0-4.0) Basophils (%) (Auto) 0.1 % (0.0-2.0) Neutrophils # (Auto) 9.3 TH/MM3 (1.8-7.7) Lymphocytes # (Auto) 1.3 TH/MM3 (1.0-4.8) Monocytes # (Auto) 1.2 TH/MM3 (0-0.9) Eosinophils # (Auto) 0.0 TH/MM3 (0-0.4) Basophils # (Auto) 0.0 TH/MM3 (0-0.2) CBC Comment DIFF FINAL Differential Comment Prothrombin Time 18.9 SEC (9.8-11.6) Prothromb Time International Ratio 1.7 RATIO Blood Urea Nitrogen 49 MG/DL (7-18) Creatinine 1.44 MG/DL (0.50-1.00) Random Glucose 97 MG/DL (74-106) Total Protein 5.9 GM/DL (6.4-8.2) Albumin 2.6 GM/DL (3.4-5.0) Calcium Level 7.9 MG/DL (8.5-10.1) Alkaline Phosphatase 88 U/L (45-117) Aspartate Amino Transf (AST/SGOT) 22 U/L (15-37) Alanine Aminotransferase (ALT/SGPT) 25 U/L (10-53) Total Bilirubin 0.8 MG/DL (0.2-1.0) Sodium Level 143 MEQ/L (136-145) Potassium Level 3.7 MEQ/L (3.5-5.1) Chloride Level 115 MEQ/L (98-107) Carbon Dioxide Level 16.8 MEQ/L (21.0-32.0) Anion Gap 11 MEQ/L (5-15) Estimat Glomerular Filtration Rate 36 ML/MIN (>89) Lipase 4684 U/L (73-393) Random Vancomycin Level 21.8 COMMENT Result Diagram: 07/23/17 0652 07/23/17 0652 Microbiology Microbiology Date/Time Source Procedure Growth Status 07/18/17 03:30 Blood Peripheral Aerobic Blood Culture - Final NO GROWTH IN 5 DAYS Complete 07/18/17 03:30 Blood Peripheral Anaerobic Blood Culture - Final NO GROWTH IN 5 DAYS Complete 07/18/17 07:20 Nasal Aspirate Influenza Types A,B Antigen (MIRIAN) - Final NEGATIVE FOR FLU A AND B ANTIGEN.... Complete 07/18/17 18:00 Urine Catheterized Urine Legionella Antigen - Final PRESUMPTIVE NEGATIVE FOR LEGIONELLA P... Complete 07/18/17 18:00 Urine Catheterized Urine Streptococcus pneumoniae Antigen (M - Final PRESUMPTIVE NEGATIVE FOR STREPTOCOCCU... Complete 07/18/17 03:30 Wound Leg Gram Stain - Final Complete 07/18/17 03:30 Wound Culture - Final S. Aureus Mrsa Complete Imaging Last 72 hours Impressions Chest X-Ray 07/23/17 0000 Signed Impressions: Service Date/Time: Sunday, July 23, 2017 10:39 - CONCLUSION: 1. Cardiomegaly and findings of congestive heart failure. There has been no significant change when compared to the prior exam. 2. Left lower lobe atelectasis versus pneumonia. Dk Berger MD Tumor Localization 07/22/17 0000 Signed Impressions: Service Date/Time: July 13:17 - CONCLUSION: Minimal uptake lateral right thigh. Ultrasound could be used to look for discrete fluid collection. Neftaly Esquivel MD FACR Lower Extremity Ultrasound 10/11/17 0000 Signed Impressions: Service Date/Time: Friday, July 21, 2017 17:45 - CONCLUSION: No evidence of DVT. Harry Maxwell MD Lower Extremity Ultrasound 07/21/17 Signed Impressions: Service Date/Time: Friday, July 21, 2017 17:57 - CONCLUSION: Venous mapping as above. Harry Maxwell MD Foot X-Ray 07/21/17 Signed Impressions: Service Date/Time: Friday, July 21, 2017 16:00 - CONCLUSION: Osteopenia without definite fracture. Neftaly Esquivel MD FACR Patient/Family Conference Present at Family Conference: Patient only. Offered to call patient's multiple times, however she declined and stated "He would not talk to you. All he is going to say is it's up to her" referring to herself. Family Conference Location: Bedside Issues Discussed: * Palliative care role, purpose, approach * Additional medical, psychosocial, and spiritual history * Patients general health, functional status, and cognitive changes in the months leading up to the current hospitalization * Patient understanding of the current medical problems * Patient understanding of prognosis * Current medical treatment options and benefits/burdens of those options * Code status * Questions answered to the best of my ability * Palliative care contact information provided . Assessment and Plan Disease Oriented Problem List: (1) Congestive heart failure (2) Respiratory distress (3) Pulmonary hypertension due to COPD (4) PAD (peripheral artery disease) (5) Wounds, multiple open, lower extremity (6) Coagulopathy Symptom Scale: (1) Debility (2) Dyspnea (3) Pain Pertinent Non-Medical Issues Psychosocial: Spiritual: Legal: Ethical issues impacting care: Important Contacts Paola Aguirre () [phone] . Code Status: Full Code Plan * Legal decision maker: Patient is currently capacitated to make her own decisions at this time. She states she has previously filled out advanced directives however, she stated she filled out her living will when she was in better health and some of the options she chose then would likely be different now. A copy of a living will was provided to her here, she declined filling it out at this time but was amenable to reading it over and completing it after she has had time to think about her wishes. * CODE STATUS: FULL CODE. Discussed risks, benefits and limitations of CPR. Patient endorses he would like to remain a full code. Patient endorses she would like to remain a full code. * GOALS: Aggressive. Discussed with the patient the likely scenarios/trajectory of her health in the coming days to months to year, discussed in detail mechanical ventilation, CPR, ventilator dependency, tracheostomy, etc. The patient stated if she was faced with the decision of needing a tracheostomy in the future she would consider it. However, following a detailed discussion regarding the likely scenarios for patients who are ventilator dependent, i.e. bedbound, residing permanently in a nursing facility, the patient stated she would not want that for herself or her family. Patient stated she would like to get well enough to be discharged home and does not want to go to a rehab facility, it was further explained that due to her debilitated status she will likely need to be placed in a facility as she is not strong enough to be discharged home safely. * SYMPTOM MANAGEMENT: * --pain: Secondary to chronic non-healing wounds, debility, lack of mobility, etc. [place] 5/325 q 6 hours PRN for pain ordered, one dose utilized in the past 24 hours. During our visit today patient stated she was pain free. No recommendations at this time. * --dyspnea: Multifactorial, patient recently with acute respiratory distress requiring mechanical ventilation, long standing history of tobacco use, pulmonary hypertension. Duonebs q 6 hours ordered and q 2 hours PRN, budesonide BID. Patient on room air during exam, no signs of dyspnea. No recommendations at this time. * --debility: Secondary to multiple comorbidities and recent hospitalizations. PT ordered, following, and working with the patient. No recommendations at this time. * Palliative care will continue to follow during hospital course as condition evolves, to assist patient/family/decision-maker with understanding of medical conditions, weighing benefit/burdens of treatment options, for clarification of goals of treatment. Additionally will assist with symptoms of palliative concern. Thank you for the opportunity to participate in the care of Ms. Aguirre. Attestation To help prompt me to consider important information that might be impacting today's encounter and assessment, information from prior notes written by myself or my colleagues may have been "brought forward" into today's note. My signature on this note, however, is an attestation that I personally performed the exam, history, and/or decision-making noted today, and, unless otherwise indicated, the interactions with patient, family, and staff as well as the review of records all occurred today. I also attest that the listed assessment and stated plan reflect my best clinical judgment today based on the combination of historical information, prior notes, and today's exam/ interactions. When time spent is documented, it refers only to time spent today by the signer, or if indicated, combined time spent today by collaborating physician/nurse practitioner. Leeanna Souza Jul 23, 2017 14:35
[2017-07-23] MEDS: MIRTAZAPINE 15 MG TAB PO SCH (21:20)
[2017-07-23] MEDS: SODIUM CHLORIDE 0.9% FLUSH 10 ML FLUSH IV FLUSH PRN (21:21)
[2017-07-24] VITALS (17 sets, daily range): BP systolic 148–206; BP diastolic 68–99; PULSE 62–86; RESP 16–27; TEMP 97.8–99.4; O2SAT 96–99
[2017-07-24] MEDS: CHLORHEXIDINE GLUCONATE 2 % 1 PACK (2 CLOTHS) TOP SCH (00:51)
[2017-07-24] MEDS: ACETAMINOPHEN/HYDROcodone 325 MG/5 MG TAB PO PRN (02:58)
[2017-07-24] MEDS: hydrALAZINE HCL 20 MG/ML VIAL IV PUSH PRN ×2 (05:03→09:35)
[2017-07-24] MEDS: methylPREDNISolone SOD SUCC 40 MG/1 ML VIAL IV PUSH SCH (05:03)
[2017-07-24] MEDS: INSULIN NovoLIN REGULAR SUPPLEMENTAL SCALE SQ SCH ×4 (05:04→17:17)
[2017-07-24 06:34] LABS: INTERNATIONAL NORMALIZED RATIO 1.2 RATIO; PROTHROMBIN TIME - PATIENT 13.2 SEC (9.8-11.6)
[2017-07-24] MEDS: CHLORHEXIDINE 0.12% (ORAL KIT) 15 ML CUP MT SCH ×2 (08:00→20:00)
[2017-07-24] MEDS: ARTIFICIAL TEARS OPTH SOLN 15 ML BTL EACH EYE SCH ×3 (09:00→17:10)
[2017-07-24] MEDS: FERROUS SULFATE 325 MG (65 MG ELEMENTAL IRON) TAB PO SCH (09:00)
[2017-07-24] MEDS: ASPIRIN 81 MG CHEW TAB CHEW SCH (09:00)
[2017-07-24] MEDS: DOCUSATE SODIUM 50 MG/SENNA 8.6 MG TAB PO SCH ×2 (09:00→20:42)
[2017-07-24] MEDS: LEVOFLOXACIN 750 MG PREMIX INJ 150 ML IV SCH (09:32)
[2017-07-24] MEDS: METOPROLOL TARTRATE 50 MG TAB PO SCH ×2 (09:33→20:42)
[2017-07-24] MEDS: ATORVASTATIN 20 MG TAB PO SCH (09:33)
[2017-07-24] MEDS: HYDROXYCHLOROQUINE SULFATE 200 MG TAB PO SCH (09:33)
[2017-07-24] MEDS: LANSOPRAZOLE SOLUTAB 30 MG TAB G-TUBE SCH (09:34)
[2017-07-24] MEDS: DOXYCYCLINE HYCLATE 100 MG CAP PO SCH ×3 (09:34→20:45)
[2017-07-24] MEDS: NIFEdipine 60 MG SUSTAINED RELEASE TAB PO SCH ×2 (09:35→20:42)
[2017-07-24] MEDS: CLOPIDOGREL 75 MG TAB PO SCH (09:36)
[2017-07-24] MEDS: SODIUM CHLORIDE 0.9% FLUSH 10 ML FLUSH IV FLUSH SCH ×2 (09:37→20:42)
[2017-07-24] MEDS: SERTRALINE HCL 50 MG TAB PO SCH (09:37)
[2017-07-24] MEDS: ENOXAPARIN SODIUM 30 MG/0.3 ML SYRINGE SQ SCH (09:37)
[2017-07-24] MEDS: COLLAGENASE OINT 30 GM TUBE TOPICAL SCH (09:38)
--- NOTE | 2017-07-24 10:48 | HHI.PR ---
Subjective Remarks No new complaints. Objective Vitals Vital Signs Date Time Temp Pulse Resp B/P (MAP) Pulse Ox O2 Delivery O2 Flow Rate FiO2 07/24/17 10:00 86 07/24/17 09:00 84 07/24/17 08:51 97 07/24/17 08:00 99.0 72 16 206/92 (130) 97 07/24/17 08:00 72 07/24/17 06:00 65 07/24/17 04:00 64 07/24/17 04:00 99.0 64 17 169/79 (109) 96 07/24/17 02:00 62 07/24/17 00:00 66 07/24/17 00:00 99.4 66 17 167/74 (105) 97 07/23/17 22:00 71 07/23/17 20:00 85 07/23/17 20:00 85 23 160/74 (102) 97 07/23/17 19:25 97 Nasal Cannula 07/23/17 18:00 76 07/23/17 16:00 99.1 72 17 175/83 (113) 96 07/23/17 16:00 72 07/23/17 14:00 77 07/23/17 13:17 97 21 07/23/17 12:00 72 07/23/17 12:00 98.5 72 28 157/72 (100) 97 Result Diagram: 07/23/17 0652 07/24/17 0545 Other Results Laboratory Tests Test 07/22/17 11:52 07/23/17 06:52 07/24/17 05:45 White Blood Count 8.9 TH/MM3 11.9 TH/MM3 Red Blood Count 2.41 MIL/MM3 3.95 MIL/MM3 Hemoglobin 7.6 GM/DL 12.2 GM/DL Hematocrit 22.6 % 35.9 % Mean Corpuscular Volume 93.9 FL 90.7 FL Mean Corpuscular Hemoglobin 31.5 PG 31.0 PG Mean Corpuscular Hemoglobin Concent 33.6 % 34.1 % Red Cell Distribution Width 15.4 % 15.6 % Platelet Count 232 TH/MM3 234 TH/MM3 Mean Platelet Volume 6.8 FL 6.8 FL Prothrombin Time 164.9 SEC 18.9 SEC 13.2 SEC Prothromb Time International Ratio 13.3 RATIO 1.7 RATIO 1.2 RATIO Blood Urea Nitrogen 45 MG/DL 49 MG/DL Creatinine 1.50 MG/DL 1.44 MG/DL 1.45 MG/DL Random Glucose 103 MG/DL 97 MG/DL Total Protein 6.2 GM/DL 5.9 GM/DL Albumin 2.6 GM/DL 2.6 GM/DL Calcium Level 7.2 MG/DL 7.9 MG/DL Alkaline Phosphatase 93 U/L 88 U/L Aspartate Amino Transf (AST/SGOT) 27 U/L 22 U/L Alanine Aminotransferase (ALT/SGPT) 28 U/L 25 U/L Total Bilirubin 0.2 MG/DL 0.8 MG/DL Sodium Level 140 MEQ/L 143 MEQ/L Potassium Level 3.9 MEQ/L 3.7 MEQ/L Chloride Level 114 MEQ/L 115 MEQ/L Carbon Dioxide Level 17.2 MEQ/L 16.8 MEQ/L Anion Gap 9 MEQ/L 11 MEQ/L Estimat Glomerular Filtration Rate 34 ML/MIN 36 ML/MIN 35 ML/MIN Protein Corrected Calcium 7.7 MG/DL Lipase 1375 U/L 4684 U/L 752 U/L Vancomycin Level Trough 22.9 MCG/ML Neutrophils (%) (Auto) 78.3 % Lymphocytes (%) (Auto) 11.2 % Monocytes (%) (Auto) 10.4 % Eosinophils (%) (Auto) 0.0 % Basophils (%) (Auto) 0.1 % Neutrophils # (Auto) 9.3 TH/MM3 Lymphocytes # (Auto) 1.3 TH/MM3 Monocytes # (Auto) 1.2 TH/MM3 Eosinophils # (Auto) 0.0 TH/MM3 Basophils # (Auto) 0.0 TH/MM3 CBC Comment DIFF FINAL Differential Comment Random Vancomycin Level 21.8 COMMENT Imaging Last Impressions Lower Extremity Ultrasound 07/21/17 0000 Signed Impressions: Service Date/Time: Friday, July 21, 2017 17:45 - CONCLUSION: No evidence of DVT. Harry Maxwell MD Foot X-Ray 07/21/17 0000 Signed Impressions: Service Date/Time: Friday, July 21, 2017 16:00 - CONCLUSION: Osteopenia without definite fracture. Neftaly Esquivel MD FACR Chest X-Ray 07/20/17 0600 Signed Impressions: Service Date/Time: Thursday, July 20, 2017 04:12 - CONCLUSION: Interval extubation. Persistent bilateral infiltrates. Fortunato Pickett MD Lower Extremity CT 07/20/17 Signed Impressions: Service Date/Time: Thursday, July 20, 2017 15:47 - CONCLUSION: Extensive soft tissue swelling involving the proximal thigh without discrete fluid collection or abscess. Status post femoral popliteal grafting and endovascular stenting. Aurelio Mccray MD Cholangiopancreatography MRI 07/19/17 Signed Impressions: Service Date/Time: Wednesday, July 19, 2017 21:49 - CONCLUSION: 1. Cholelithiasis without evidence of common duct stone 2. Dilatation and irregularity of the pancreatic duct characteristic of chronic pancreatitis Dk Berger MD Head CT 07/18/17 Signed Impressions: Service Date/Time: Tuesday, July 18, 2017 04:29 - CONCLUSION: Normal examination. Tha Shaw Jr., MD Abdomen/Pelvis CT 07/18/17 Signed Impressions: Service Date/Time: Wednesday, July 19, 2017 12:56 - CONCLUSION: 1. Small bilateral pleural effusions with associated atelectasis at the lung bases. 2. Distended gallbladder containing calcified gallstones with prominent common bile duct and mild central intrahepatic ductal dilatation. Distal CBD stone noted on ultrasound exam earlier today is not definitively visualized although the findings are concerning for at least partial distal CBD obstruction. 3. Coarse calcifications in the pancreatic head consistent with prior pancreatitis. Possible pancreatic cysts demonstrated on ultrasound are not definitively demonstrated although region of low density near the pancreatic head likely corresponds to dilated common bile duct. Overall evaluation is limited due to lack of IV contrast. 4. Findings consistent with medullary nephrocalcinosis. Lobo Kessler MD Abdomen Ultrasound 07/18/17 Signed Impressions: Service Date/Time: Tuesday, July 18, 2017 17:05 - CONCLUSION: 1. Echogenic kidneys noted bilaterally with bilateral cysts. 2. Dilated common bile duct and choledocholith.. 3. Cholelithiasis. 4. The proximal pancreas is not well-visualized with areas suggesting pancreatic cysts and calcifications. 5. Small left pleural effusion. 6. Heterogeneous liver suggesting underlying hepatitis. Reno Ortez MD Objective Remarks GENERAL: THIN, frail, NAD CARDIOVASCULAR: Regular rate and rhythm without murmurs, gallops, or rubs. RESPIRATORY: Clear to auscultation. Breath sounds equal bilaterally. No wheezes , rales, or rhonchi. GASTROINTESTINAL: Abdomen soft, non-tender, nondistended. No hepato-splenomegaly , or palpable masses. No guarding. MUSCULOSKELETAL: skin changes at feet and ankles c/w PVD. Pt has chronic non- healing wound at right medial malleolus without indurating or purulent discharge , smaller wound at lateral aspect of the right ankle wound at right groin appears to be healing well. NEUROLOGICAL: Awake and alert. No focal deficits. Motor and sensory grossly within normal limits. Five out of 5 muscle strength in all muscle groups. Normal speech. A/P Problem List: (1) Acute hypoxemic respiratory failure ICD Codes: J96.01 - Acute respiratory failure with hypoxia Plan: Acute hypoxic respiratory failure 50 year tobacco history - Pt was successfully Extubated 07/19, pt is stable on RA - duonebs q6H WA & q2H prn - Budesonide aerosols 0.5/2 1 inhalation twice a day - NO infectious etiology to pt's admission has been identified - More likely that pt's decline was d/t her chronic cardiac and pulmonary disease - Pt is at high risk of recurrent respiratory failure, and I have explained this to pt and . - Await Palliative Consult. Hospice would be appropriate - d/t generalized weakness SNF would be appropriate at the end of current hospitalization. Pt/ NOT interested at SNF at this time. - DVT prophylaxis Coronary artery disease status post stent RCA 03/27 Dr. Monique Pulmonary edema Peripheral arterial disease status post lower extremity stenting Hypertension Dyslipidemia Pulmonary hypertension likely type III Hypothermia EKG on admission revealed normal sinus rhythm 80. IVCD with a QRS [address] elevation. Troponin 0.03. 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 No regional wall motion abnormality Metoprolol 50 mg twice a day for hypertension Lasix 40 mg iv X1 07/19 Holding amlodipine 5 mill grams daily and lisinopril 5 mill grams daily. Resume when clinically indicated Resumed atorvastatin 20 mg daily for dyslipidemia Resumed aspirin 81 mg daily and clopidogrel 75 mg daily for stent. Vascular surgery consult Dr. Heart does not feel the Fem Pop bypass is infected. CT R thigh with contrast did not show any abscess. Cholelithiasis Pancreatitis MRCP: Cholelithiasis without evidence of common duct stone. Dilatation and irregularity of the pancreatic duct characteristic of chronic pancreatitis Clear liquid diet. Appreciate GI consult signed off. General surgery also consulted do not feel surgery is indicated at this time- rec F/U as outpatient- also signed off Lansoprazole for GI prophylaxis CT abdomen and pelvis did not show definite CBD stone but some evidence of partial common bile duct obstruction Docusate sodium/senna 1 tablet twice a day for bowel regimen - increased lipase, but NO c/o abdominal pain - continue current diet for now - repeat lipase in AM History of RA Lupus? Hydroxychloroquine 200 mg daily for her underlying rheumatologic disorder Currently on sliding scale insulin with Novolin moderate protocol with Accu- Cheks every 6 hours to maintain euglycemia Acute kidney injury History of nephrolithiasis Creatinine currently stable. Will DC IVF tolerating clear Monitor urine output Accurate I's and O's Avoid nephrotoxic drugs Normocytic anemia Chronic warfarin use History of DVTs bilateral lower extremities DC warfarin Continue aspirin/clopidogrel pre Dr. Monique hgb 7.6 (07/22). Pt received 2 units PRBCs (07/22) - Hg 12.2 (07/23), repeat Hg 07/24 pending no signs of active bleeding, occult stool ordered INR 13.3, vitamin k 5mg PO x 1 - Case d/w Hematology, Dr. Saenz (07/23/17). - will give Lovenox during hospitalization - consider resuming Coumadin at discharge. Potentially being potentiated by antibiotics and poor PO intake. Probable right thigh cellulitis - Comgmt with ID Receive 1 dose of cefepime/azithromycin in ED. Noted allergy to cephalosporins and previous records has been on levofloxacin, vancomycin, DC aztreonam. Zosyn 4.5 GM IV q6. Blood cultures 2, sputum, urine Legionella and pneumococcal antigens and influenza all negative wound culture positive for MRSA Urine culture growing pleomorphic gram-positive rods - Tagged WBC scan (07/22/17) Does not localize infection in lower extremities. 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 (3) Hyponatremia ICD Codes: E87.1 - Hypo-osmolality and hyponatremia (4) Normocytic anemia ICD Codes: D64.9 - Anemia, unspecified (5) Wounds, multiple open, lower extremity ICD Codes: S81.809A - Unspecified open wound, unspecified lower leg, initial encounter Status: Acute (6) COPD (chronic obstructive pulmonary disease) ICD Codes: J44.9 - Chronic obstructive pulmonary disease, unspecified Status: Chronic (7) Pulmonary hypertension due to COPD ICD Codes: I27.23 - Pulmonary hypertension due to lung diseases and hypoxia; J44.9 - Chronic obstructive pulmonary disease, unspecified (8) Coronary artery disease ICD Codes: I25.10 - Atherosclerotic heart disease of [place] coronary artery without angina pectoris (9) Depression ICD Codes: F32.9 - Major depressive disorder, single episode, unspecified (10) Dyslipidemia ICD Codes: E78.5 - Hyperlipidemia, unspecified (11) Hypertension ICD Codes: I10 - Essential (primary) hypertension (12) Lupus ICD Codes: L93.0 - Discoid lupus erythematosus (13) Lower leg DVT (deep venous thromboembolism), chronic ICD Codes: I82.5Z9 - Chronic embolism and thrombosis of unspecified deep veins of unspecified distal lower extremity (14) Nephrolithiasis ICD Codes: N20.0 - Calculus of kidney (15) Peripheral arterial occlusive disease ICD Codes: I77.9 - Disorder of arteries and arterioles, unspecified (16) Rheumatoid arthritis ICD Codes: M06.9 - Rheumatoid arthritis, unspecified Assessment and Plan Patient examined. Assessment and plan formulated with Tawana Garcia PA-C. I agree with the above. Problem Qualifiers (1) Wounds, multiple open, lower extremity: Qualified Codes: S81.801D - Unspecified open wound, right lower leg, subsequent encounter (2) COPD (chronic obstructive pulmonary disease): Qualified Codes: J44.9 - Chronic obstructive pulmonary disease, unspecified (3) Coronary artery disease: Qualified Codes: I25.10 - Atherosclerotic heart disease of [place] coronary artery without angina pectoris (4) Depression: Qualified Codes: F32.9 - Major depressive disorder, single episode, unspecified (5) Hypertension: Qualified Codes: I10 - Essential (primary) hypertension (6) Lupus: Qualified Codes: L93.0 - Discoid lupus erythematosus (7) Lower leg DVT (deep venous thromboembolism), chronic: Qualified Codes: I82.5Z9 - Chronic embolism and thrombosis of unspecified deep veins of unspecified distal lower extremity Tawana Garcia Jul 24, 2017 10:48 Cristobal Larose DO Jul 25, 2017 00:26
[2017-07-24 10:55] LABS: AUTOMATED NEUTROPHIL # 8.5 TH/MM3 (1.8-7.7); BASOPHIL % 0.2 % (0.0-2.0); HEMATOCRIT 40.2 % (35.0-46.0); HEMO FLAGS DIFF FINAL; LYMPH % 8.3 % (9.0-44.0); LYMPHOCYTE # 0.9 TH/MM3 (1.0-4.8); MEAN CELL VOLUME 91.1 FL (80.0-100.0); MEAN CORPUSCULAR HEMOGLOBIN 31.3 PG (27.0-34.0); MEAN CORPUSCULAR HGB CONC 34.3 % (32.0-36.0); MONO % 8.7 % (0.0-8.0); NEUT % 82.8 % (16.0-70.0); PLATELET COUNT 221 TH/MM3 (150-450); RED BLOOD COUNT 4.41 MIL/MM3 (4.00-5.30); WHITE BLOOD COUNT 10.3 TH/MM3 (4.0-11.0)
--- NOTE | 2017-07-24 13:56 | PD.ONC.PN ---
Subjective Subjective Remarks Afebrile overnight. Patient reports she noticed some nosebleed last night. She reports she has been having nosebleeds all week. Objective Data Date Time Temp Pulse Resp B/P (MAP) Pulse Ox O2 Delivery O2 Flow Rate FiO2 07/24/17 10:00 86 07/24/17 09:00 84 07/24/17 08:51 97 07/24/17 08:00 99.0 72 16 206/92 (130) 97 07/24/17 08:00 72 07/24/17 06:00 65 07/24/17 04:00 64 07/24/17 04:00 99.0 64 17 169/79 (109) 96 07/24/17 02:00 62 07/24/17 00:00 66 07/24/17 00:00 99.4 66 17 167/74 (105) 97 07/23/17 22:00 71 07/23/17 20:00 85 07/23/17 20:00 85 23 160/74 (102) 97 07/23/17 19:25 97 Nasal Cannula 07/23/17 18:00 76 07/23/17 16:00 99.1 72 17 175/83 (113) 96 07/23/17 16:00 72 07/23/17 14:00 77 07/24/17 07/24/17 07/24/17 07:00 15:00 23:00 Intake Total 480 ml Output Total 900 ml Balance -420 ml Result Diagram: 07/24/17 1040 07/24/17 0545 Laboratory Results Laboratory Tests Test 07/24/17 05:45 07/24/17 10:40 Prothrombin Time 13.2 SEC Prothromb Time International Ratio 1.2 RATIO Creatinine 1.45 MG/DL Estimat Glomerular Filtration Rate 35 ML/MIN Lipase 752 U/L White Blood Count 10.3 TH/MM3 Red Blood Count 4.41 MIL/MM3 Hemoglobin 13.8 GM/DL Hematocrit 40.2 % Mean Corpuscular Volume 91.1 FL Mean Corpuscular Hemoglobin 31.3 PG Mean Corpuscular Hemoglobin Concent 34.3 % Red Cell Distribution Width 16.0 % Platelet Count 221 TH/MM3 Mean Platelet Volume 7.0 FL Neutrophils (%) (Auto) 82.8 % Lymphocytes (%) (Auto) 8.3 % Monocytes (%) (Auto) 8.7 % Eosinophils (%) (Auto) 0.0 % Basophils (%) (Auto) 0.2 % Neutrophils # (Auto) 8.5 TH/MM3 Lymphocytes # (Auto) 0.9 TH/MM3 Monocytes # (Auto) 0.9 TH/MM3 Eosinophils # (Auto) 0.0 TH/MM3 Basophils # (Auto) 0.0 TH/MM3 CBC Comment DIFF FINAL Differential Comment Administered Medications Medications (Trade) Dose Ordered Sig/Sarah Route PRN Reason Start Time Stop Time Status Last Admin Dose Admin Sodium Chloride (NS Flush) 2 ml UNSCH PRN IV FLUSH FLUSH AFTER USING IV ACCESS 07/18/17 07:00 07/23/17 21:21 Sodium Chloride (NS Flush) 2 ml BID IV FLUSH 07/18/17 09:00 07/24/17 09:37 Lansoprazole (Prevacid Odt) 30 mg DAILY G-TUBE 07/18/17 09:00 07/24/17 09:34 Artificial Tears (Tears Naturale Opth Soln) 1 drop TID EACH EYE 07/18/17 09:00 07/23/17 11:03 Chlorhexidine Gluconate (Chlorhexidine 2% Cloth) Taper DAILY@04 TOP 07/19/17 04:00 07/15/18 03:59 07/23/17 04:00 Senna/Docusate Sodium (Juana-Colace) 1 tab BID PO 07/18/17 09:00 07/21/17 21:25 Chlorhexidine Gluconate (Peridex 0.12% Liq) 15 ml BID@08,20 MT 07/18/17 08:00 07/19/17 09:56 Aspirin (Aspirin Chew) 81 mg DAILY CHEW 07/18/17 09:00 07/23/17 08:58 Clopidogrel Bisulfate (Plavix) 75 mg DAILY PO 07/18/17 09:00 07/24/17 09:36 Hydroxychloroquine Sulfate (Plaquenil) 200 mg DAILY PO 07/18/17 09:00 07/24/17 09:33 Atorvastatin Calcium (Lipitor) 20 mg DAILY PO 07/18/17 09:00 07/24/17 09:33 Mirtazapine (Remeron) 15 mg HS PO 07/18/17 21:00 07/23/17 21:20 Sertraline HCl (Zoloft) 50 mg DAILY PO 07/18/17 09:00 07/24/17 09:37 Budesonide (Pulmicort Respule Neb) 0.5 mg Q12HR NEB NEB 07/18/17 08:00 07/22/17 09:11 Insulin Human Regular (NovoLIN R SUPPLEMENTAL SCALE) 1 Q6HR SQ 07/18/17 12:00 07/23/17 12:00 Metoprolol Tartrate (Lopressor) 50 mg BID PO 07/18/17 09:00 07/24/17 09:33 Ferrous Sulfate (Ferrous Sulfate) 325 mg DAILY PO 07/18/17 09:00 07/23/17 08:58 Levofloxacin/ Dextrose 150 ml @ 100 mls/hr Q24H IV 07/18/17 10:00 07/24/17 09:32 Hydralazine HCl (Apresoline Inj) 10 mg Q1H PRN IV PUSH SBP>160, DBP>90 07/18/17 14:15 07/24/17 09:35 Acetaminophen/ Hydrocodone Bitart ([place] 5-325 Mg) 1 tab Q6H PRN PO PAIN 3-04/1907/19/17 21:30 07/21/17 05:47 Acetaminophen/ Hydrocodone Bitart ([place] 5-325 Mg) 2 tab Q6H PRN PO PAIN 8-07/2007/20/17 00:44 07/24/17 02:58 Collagenase (Santyl Oint) 1 applic DAILY TOPICAL 07/21/17 17:00 07/24/17 09:38 Sodium Chloride (Lewis Armando [place]) 2 spray Q4H PRN EACH NARE NASAL CONGESTION 07/22/17 18:15 07/23/17 01:32 Doxycycline Hyclate (Vibramycin) 100 mg BID PO 07/23/17 10:00 07/24/17 09:34 Enoxaparin Sodium (Lovenox Inj) 30 mg Q24H SQ 07/23/17 10:45 07/24/17 09:37 Albuterol/ Ipratropium (Duoneb Neb) 1 ampule Q6HR WHILE AWAKE NEB NEB 07/23/17 14:00 07/23/17 13:16 Nifedipine (Procardia Xl) 60 mg BID PO 07/24/17 09:00 07/24/17 09:35 Objective Remarks GENERAL: Elderly female upright in bed, eating lunch. SKIN: Warm and dry. HEAD: Normocephalic. no bleeding. EYES: No injection or drainage. NECK: Supple, trachea midline. CARDIOVASCULAR: +S1/S2 RESPIRATORY: anterior mendoza clear. GASTROINTESTINAL: Abdomen soft, non-tender, nondistended. EXTREMITIES: No cyanosis. NEUROLOGICAL: awake and alert Assessment/Plan Problem List: (1) Coagulopathy ICD Codes: D68.9 - Coagulation defect, unspecified Plan: 07/24: monitor INR, CBC. ok to restart heparin and bridge to coumadin if no further invasive procedures planned. -- Coagulopathy likely from coumadin with interaction with Levaquin -- s/p pRBC, hgb improved. -- s/p vitamin K -- Still with epistaxis --currently on Lovenox prophylaxis only. Hx/Workup: Has been on Coumadin for the past 8-10 years after she had a right lower extremity DVT. Most recently she also had coronary artery stent placement and was started on Plavix. Her INR has increased from 1.7-11.1. Yesterday her INR was down to 3.9 however today it is back up again to 13.3. She is status post femoropopliteal bypass and right iliac artery stent placement. Assessment 72 y/o female admitted with sepsis; hematology consulted for coagulaopathy Attending Statement The exam, history, and the medical decision-making described in the above note were completed with the assistance of the mid-level provider. I reviewed and agree with the findings presented. I attest that I had a [id number] encounter with the patient on the same day, and personally performed and documented my assessment and findings in the medical record. had some epistaxis. heparin transition to coumadin. looks stable. Caron Monge Jul 24, 2017 13:56 Lizy Bosch MD Jul 24, 2017 19:32
--- NOTE | 2017-07-24 18:37 | HHI.PR ---
Subjective Remarks Pt c/o producing phlegm mixed with blood with coughing. Usually occurs once a day. Small amount. 1/2 Tea spoon sized. Pt feels that the hemoptysis is d/t nose bleeds. Pt tells me that she does NOT want any further hospitalization or work up. Pt demands that I discharge her to home tomorrow. Pt does NOT want a SNF. Pt is NOT able to ambulate, but states that she will use a wheelchair at home. Pt requests C and home PT. Pt states that she will come back to the hospital again if needed. Pt declines hospice at this time. Objective Vitals Vital Signs Date Time Temp Pulse Resp B/P (MAP) Pulse Ox O2 Delivery O2 Flow Rate FiO2 07/24/17 14:00 78 07/24/17 12:00 72 07/24/17 12:00 98.9 72 27 148/68 (94) 99 07/24/17 10:00 86 07/24/17 09:00 84 07/24/17 08:51 97 07/24/17 08:00 99.0 72 16 206/92 (130) 97 07/24/17 08:00 72 07/24/17 06:00 65 07/24/17 04:00 64 07/24/17 04:00 99.0 64 17 169/79 (109) 96 07/24/17 02:00 62 07/24/17 00:00 66 07/24/17 00:00 99.4 66 17 167/74 (105) 97 07/23/17 22:00 71 07/23/17 20:00 85 07/23/17 20:00 85 23 160/74 (102) 97 07/23/17 19:25 97 Nasal Cannula Result Diagram: 07/24/17 1040 07/24/17 0545 Imaging Last Impressions Lower Extremity Ultrasound 07/21/17 0000 Signed Impressions: Service Date/Time: Friday, July 21, 2017 17:45 - CONCLUSION: No evidence of DVT. Harry Maxwell MD Foot X-Ray 07/21/17 0000 Signed Impressions: Service Date/Time: Friday, July 21, 2017 16:00 - CONCLUSION: Osteopenia without definite fracture. Neftaly Esquivel MD FACR Chest X-Ray 07/20/17 0600 Signed Impressions: Service Date/Time: Thursday, July 20, 2017 04:12 - CONCLUSION: Interval extubation. Persistent bilateral infiltrates. Fortunato Pickett MD Lower Extremity CT 07/20/17 Signed Impressions: Service Date/Time: Thursday, July 20, 2017 15:47 - CONCLUSION: Extensive soft tissue swelling involving the proximal thigh without discrete fluid collection or abscess. Status post femoral popliteal grafting and endovascular stenting. Aurelio Mccray MD Cholangiopancreatography MRI 07/19/17 Signed Impressions: Service Date/Time: Wednesday, July 19, 2017 21:49 - CONCLUSION: 1. Cholelithiasis without evidence of common duct stone 2. Dilatation and irregularity of the pancreatic duct characteristic of chronic pancreatitis Dk Berger MD Head CT 07/18/17 Signed Impressions: Service Date/Time: Tuesday, July 18, 2017 04:29 - CONCLUSION: Normal examination. Tha Shaw Jr., MD Abdomen/Pelvis CT 07/18/17 Signed Impressions: Service Date/Time: Wednesday, July 19, 2017 12:56 - CONCLUSION: 1. Small bilateral pleural effusions with associated atelectasis at the lung bases. 2. Distended gallbladder containing calcified gallstones with prominent common bile duct and mild central intrahepatic ductal dilatation. Distal CBD stone noted on ultrasound exam earlier today is not definitively visualized although the findings are concerning for at least partial distal CBD obstruction. 3. Coarse calcifications in the pancreatic head consistent with prior pancreatitis. Possible pancreatic cysts demonstrated on ultrasound are not definitively demonstrated although region of low density near the pancreatic head likely corresponds to dilated common bile duct. Overall evaluation is limited due to lack of IV contrast. 4. Findings consistent with medullary nephrocalcinosis. Lobo Kessler MD Abdomen Ultrasound 07/18/17 Signed Impressions: Service Date/Time: Tuesday, July 18, 2017 17:05 - CONCLUSION: 1. Echogenic kidneys noted bilaterally with bilateral cysts. 2. Dilated common bile duct and choledocholith.. 3. Cholelithiasis. 4. The proximal pancreas is not well-visualized with areas suggesting pancreatic cysts and calcifications. 5. Small left pleural effusion. 6. Heterogeneous liver suggesting underlying hepatitis. Reno Ortez MD Objective Remarks GENERAL: THIN, frail, NAD CARDIOVASCULAR: Regular rate and rhythm without murmurs, gallops, or rubs. RESPIRATORY: Clear to auscultation. Breath sounds equal bilaterally. No wheezes , rales, or rhonchi. GASTROINTESTINAL: Abdomen soft, non-tender, nondistended. No hepato-splenomegaly , or palpable masses. No guarding. MUSCULOSKELETAL: skin changes at feet and ankles c/w PVD. Pt has chronic non- healing wound at right medial malleolus without indurating or purulent discharge , smaller wound at lateral aspect of the right ankle wound at right groin appears to be healing well. NEUROLOGICAL: Awake and alert. No focal deficits. Motor and sensory grossly within normal limits. Five out of 5 muscle strength in all muscle groups. Normal speech. A/P Problem List: (1) Acute hypoxemic respiratory failure ICD Codes: J96.01 - Acute respiratory failure with hypoxia Plan: Acute hypoxic respiratory failure 50 year tobacco history - Pt was successfully Extubated 07/19, pt is stable on RA - duonebs q6H WA & q2H prn - Budesonide aerosols 0.5/2 1 inhalation twice a day - NO infectious etiology to pt's admission has been identified - More likely that pt's decline was d/t her chronic cardiac and pulmonary disease - Pt is at high risk of recurrent respiratory failure, and I have explained this to pt and . - Appreciate input from Palliative Medicine. Hospice would be appropriate, but pt/ are NOT interested at this time - d/t generalized weakness SNF would be appropriate at the end of current hospitalization. Pt/ NOT interested at SNF at this time. - pt c/o occasional episode of hemoptysis - obtain sputum gram stain and culture - DVT prophylaxis - today pt c/o daily episodes of hemoptysis which she attributes to nose bleeds - I would like to obtain CT chest, but pt declines. - Pt tells me that she does NOT want further hospitalization and demands prompt discharge tomorrow - Pt will NOT go to SNF - Pt request that I arrange C and home PT - I feel that pt does require further hospitalization, probably for another 2-3 days, but pt is NOT confused and I will abide by her wishes. - Pt's blood pressure is NOT adequately controlled on oral agents, but pt does NOT want to stay here to address this - Pt is at high risk for repeat admission, worsening of both her acute & chronic illness, and . All of this has been explained to Ms. Aguirre, but she insists on discharge tomorrow. - Pt is NOT interested in hospice at this time. Coronary artery disease status post stent RCA 03/27 Dr. Monique Pulmonary edema Peripheral arterial disease status post lower extremity stenting Hypertension Dyslipidemia Pulmonary hypertension likely type III Hypothermia EKG on admission revealed normal sinus rhythm 80. IVCD with a QRS [address] elevation. Troponin 0.03. 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 No regional wall motion abnormality Metoprolol 50 mg twice a day for hypertension Lasix 40 mg iv X1 07/19 Holding amlodipine 5 mill grams daily and lisinopril 5 mill grams daily. Resume when clinically indicated Resumed atorvastatin 20 mg daily for dyslipidemia Resumed aspirin 81 mg daily and clopidogrel 75 mg daily for stent. Vascular surgery consult Dr. Heart does not feel the Fem Pop bypass is infected. CT R thigh with contrast did not show any abscess. Cholelithiasis Pancreatitis MRCP: Cholelithiasis without evidence of common duct stone. Dilatation and irregularity of the pancreatic duct characteristic of chronic pancreatitis Clear liquid diet. Appreciate GI consult signed off. General surgery also consulted do not feel surgery is indicated at this time- rec F/U as outpatient- also signed off Lansoprazole for GI prophylaxis CT abdomen and pelvis did not show definite CBD stone but some evidence of partial common bile duct obstruction Docusate sodium/senna 1 tablet twice a day for bowel regimen - Lipase level is now improving History of RA Lupus? Hydroxychloroquine 200 mg daily for her underlying rheumatologic disorder Currently on sliding scale insulin with Novolin moderate protocol with Accu- Cheks every 6 hours to maintain euglycemia Acute kidney injury History of nephrolithiasis Creatinine currently stable. Will DC IVF tolerating clear Monitor urine output Accurate I's and O's Avoid nephrotoxic drugs Normocytic anemia Chronic warfarin use History of DVTs bilateral lower extremities DC warfarin Continue aspirin/clopidogrel pre Dr. Monique hgb 7.6 (07/22). Pt received 2 units PRBCs (07/22) - Hg 12.2 (07/23), repeat Hg 07/24 pending no signs of active bleeding, occult stool ordered INR 13.3, vitamin k 5mg PO x 1 - Case d/w Hematology, Dr. Saenz (07/23/17). - will give Lovenox during hospitalization - consider resuming Coumadin at discharge. potentiated by antibiotics and poor PO intake. Probable right thigh cellulitis - Comgmt with ID Receive 1 dose of cefepime/azithromycin in ED. Noted allergy to cephalosporins and previous records has been on levofloxacin, vancomycin, DC aztreonam. Zosyn 4.5 GM IV q6. Blood cultures 2, sputum, urine Legionella and pneumococcal antigens and influenza all negative wound culture positive for MRSA Urine culture growing pleomorphic gram-positive rods - Tagged WBC scan (07/22/17) Does not localize infection in lower extremities. 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 (3) Hyponatremia ICD Codes: E87.1 - Hypo-osmolality and hyponatremia (4) Normocytic anemia ICD Codes: D64.9 - Anemia, unspecified (5) Wounds, multiple open, lower extremity ICD Codes: S81.809A - Unspecified open wound, unspecified lower leg, initial encounter Status: Acute (6) COPD (chronic obstructive pulmonary disease) ICD Codes: J44.9 - Chronic obstructive pulmonary disease, unspecified Status: Chronic (7) Pulmonary hypertension due to COPD ICD Codes: I27.23 - Pulmonary hypertension due to lung diseases and hypoxia; J44.9 - Chronic obstructive pulmonary disease, unspecified (8) Coronary artery disease ICD Codes: I25.10 - Atherosclerotic heart disease of kn[place] coronary artery without angina pectoris (9) Depression ICD Codes: F32.9 - Major depressive disorder, single episode, unspecified (10) Dyslipidemia ICD Codes: E78.5 - Hyperlipidemia, unspecified (11) Hypertension ICD Codes: I10 - Essential (primary) hypertension (12) Lupus ICD Codes: L93.0 - Discoid lupus erythematosus (13) Lower leg DVT (deep venous thromboembolism), chronic ICD Codes: I82.5Z9 - Chronic embolism and thrombosis of unspecified deep veins of unspecified distal lower extremity (14) Nephrolithiasis ICD Codes: N20.0 - Calculus of kidney (15) Peripheral arterial occlusive disease ICD Codes: I77.9 - Disorder of arteries and arterioles, unspecified (16) Rheumatoid arthritis ICD Codes: M06.9 - Rheumatoid arthritis, unspecified Problem Qualifiers (1) Wounds, multiple open, lower extremity: Qualified Codes: S81.801D - Unspecified open wound, right lower leg, subsequent encounter (2) COPD (chronic obstructive pulmonary disease): Qualified Codes: J44.9 - Chronic obstructive pulmonary disease, unspecified (3) Coronary artery disease: Qualified Codes: I25.10 - Atherosclerotic heart disease of [place] coronary artery without angina pectoris (4) Depression: Qualified Codes: F32.9 - Major depressive disorder, single episode, unspecified (5) Hypertension: Qualified Codes: I10 - Essential (primary) hypertension (6) Lupus: Qualified Codes: L93.0 - Discoid lupus erythematosus (7) Lower leg DVT (deep venous thromboembolism), chronic: Qualified Codes: I82.5Z9 - Chronic embolism and thrombosis of unspecified deep veins of unspecified distal lower extremity Cristobal Larose DO Jul 24, 2017 18:37
[2017-07-24] MEDS: RESP: BUDESONIDE 0.5 MG/2 ML NEB NEB SCH (19:29)
[2017-07-24] MEDS: RESP: ALBUTEROL 2.5 MG/IPRATROPIUM 0.5 MG NEB (SCH) NEB (19:29)
[2017-07-24] MEDS: MIRTAZAPINE 15 MG TAB PO SCH (20:43)
[2017-07-25] VITALS (7 sets, daily range): BP systolic 118–172; BP diastolic 54–99; PULSE 68–91; RESP 16–18; TEMP 96.7–99.1; O2SAT 96–99
[2017-07-25] MEDS: ACETAMINOPHEN/HYDROcodone 325 MG/5 MG TAB PO PRN ×2 (01:22→23:27)
[2017-07-25] MEDS: CHLORHEXIDINE GLUCONATE 2 % 1 PACK (2 CLOTHS) TOP SCH (04:00)
[2017-07-25] MEDS: INSULIN NovoLIN REGULAR SUPPLEMENTAL SCALE SQ SCH ×5 (05:18→23:31)
[2017-07-25 06:23] LABS: MEAN CELL VOLUME 91.4 FL (80.0-100.0); MEAN CORPUSCULAR HEMOGLOBIN 30.9 PG (27.0-34.0); MEAN CORPUSCULAR HGB CONC 33.8 % (32.0-36.0); PLATELET COUNT 178 TH/MM3 (150-450); RED BLOOD COUNT 4.05 MIL/MM3 (4.00-5.30); RED CELL DISTRIBUTION WIDTH 15.5 % (11.6-17.2); REVIEW FLAG FINAL; WHITE BLOOD COUNT 11.5 TH/MM3 (4.0-11.0)
[2017-07-25] MEDS: CHLORHEXIDINE 0.12% (ORAL KIT) 15 ML CUP MT SCH ×2 (08:00→20:00)
[2017-07-25] MEDS: RESP: ALBUTEROL 2.5 MG/IPRATROPIUM 0.5 MG NEB (SCH) NEB ×3 (08:00→19:47)
[2017-07-25] MEDS: RESP: BUDESONIDE 0.5 MG/2 ML NEB NEB SCH ×2 (08:00→19:47)
[2017-07-25] MEDS: SERTRALINE HCL 50 MG TAB PO SCH (08:24)
[2017-07-25] MEDS: HYDROXYCHLOROQUINE SULFATE 200 MG TAB PO SCH (08:24)
[2017-07-25] MEDS: LANSOPRAZOLE SOLUTAB 30 MG TAB G-TUBE SCH (08:24)
[2017-07-25] MEDS: FERROUS SULFATE 325 MG (65 MG ELEMENTAL IRON) TAB PO SCH (08:24)
[2017-07-25] MEDS: METOPROLOL TARTRATE 50 MG TAB PO SCH ×2 (08:24→20:35)
[2017-07-25] MEDS: CLOPIDOGREL 75 MG TAB PO SCH (08:24)
[2017-07-25] MEDS: ATORVASTATIN 20 MG TAB PO SCH (08:24)
[2017-07-25] MEDS: NIFEdipine 60 MG SUSTAINED RELEASE TAB PO SCH ×2 (08:24→20:35)
[2017-07-25] MEDS: SODIUM CHLORIDE 0.9% FLUSH 10 ML FLUSH IV FLUSH SCH ×2 (08:25→20:43)
[2017-07-25] MEDS: DOXYCYCLINE HYCLATE 100 MG CAP PO SCH (08:32)
[2017-07-25] MEDS: DOCUSATE SODIUM 50 MG/SENNA 8.6 MG TAB PO SCH ×2 (08:33→20:35)
[2017-07-25] MEDS: ASPIRIN 81 MG CHEW TAB CHEW SCH (08:33)
[2017-07-25] MEDS: ARTIFICIAL TEARS OPTH SOLN 15 ML BTL EACH EYE SCH ×3 (08:37→17:18)
[2017-07-25] MEDS: COLLAGENASE OINT 30 GM TUBE TOPICAL SCH (08:38)
[2017-07-25] MEDS: methylPREDNISolone SOD SUCC 40 MG/1 ML VIAL IV PUSH SCH (08:38)
--- NOTE | 2017-07-25 10:00 | HHI.FF ---
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 My clinical findings support the need for the requested home health care services because: limited ability to care for self high fall risks Ltd mobility - disease progression Med compliance is questionable Limited ability to care for self High risk of falls I certify that my clinical findings support that this patient is homebound because: Unsteady gait/balance Hx COPD- exertion dyspnea/weakness Unsteady gait/balance Unsafe to leave home unassisted Tawana Garcia Jul 25, 2017 10:00 Cristobal Larose DO Jul 27, 2017 11:22
[2017-07-25] MEDS ORDERED: NIFE60TA8 PO (10:05)
[2017-07-25] MEDS ORDERED: PRED10 PO (10:05)
[2017-07-25] MEDS: ENOXAPARIN SODIUM 30 MG/0.3 ML SYRINGE SQ SCH (10:20)
[2017-07-25] MEDS: LEVOFLOXACIN 750 MG PREMIX INJ 150 ML IV SCH (10:24)
[2017-07-25 12:11] LABS: INTERNATIONAL NORMALIZED RATIO 1.2 RATIO; PROTHROMBIN TIME - PATIENT 13.2 SEC (9.8-11.6)
--- NOTE | 2017-07-25 15:06 | HHI.DCPOC ---
Discharge Care Plan Diagnosis: (1) Wounds, multiple open, lower extremity (2) Pulmonary hypertension due to COPD (3) PAD (peripheral artery disease) (4) COPD (chronic obstructive pulmonary disease) (5) Acute hypoxemic respiratory failure Goals to Promote Your Health * To prevent worsening of your condition and complications * To maintain your health at the optimal level Directions to Meet Your Goals Take your medications as prescribed Follow your dietary instruction Follow activity as directed Keep your appointments as scheduled Take your immunizations and boosters as scheduled If your symptoms worsen call your PCP, if no PCP go to Urgent Care Center or Emergency Room Smoking is Dangerous to Your Health. Avoid second hand smoke Call the 24-hour hour crisis hotline for domestic abuse at Cristboal Larose DO Jul 25, 2017 15:06
--- NOTE | 2017-07-25 15:14 | HHI.DS ---
Discharge Summary Admission Date Jul 18, 2017 at 05:57 Discharge Date: Jul 25, 2017 Admitting Diagnosis respiratory distress, congestive heart failure, pneumonia (1) Acute hypoxemic respiratory failure Diagnosis: Principal ICD Codes: J96.01 - Acute respiratory failure with hypoxia (2) Chronic anticoagulation Diagnosis: Principal ICD Codes: Z79.01 - nursing home (current) use of anticoagulants (3) Hyponatremia Diagnosis: Principal ICD Codes: E87.1 - Hypo-osmolality and hyponatremia (4) Normocytic anemia Diagnosis: Secondary ICD Codes: D64.9 - Anemia, unspecified (5) Wounds, multiple open, lower extremity Diagnosis: Secondary ICD Codes: S81.809A - Unspecified open wound, unspecified lower leg, initial encounter Status: Acute (6) COPD (chronic obstructive pulmonary disease) Diagnosis: Secondary ICD Codes: J44.9 - Chronic obstructive pulmonary disease, unspecified Status: Chronic (7) Pulmonary hypertension due to COPD ICD Codes: I27.23 - Pulmonary hypertension due to lung diseases and hypoxia; J44.9 - Chronic obstructive pulmonary disease, unspecified (8) Coronary artery disease Diagnosis: Secondary ICD Codes: I25.10 - Atherosclerotic heart disease of [place] coronary artery without angina pectoris (9) Depression Diagnosis: Secondary ICD Codes: F32.9 - Major depressive disorder, single episode, unspecified (10) Dyslipidemia Diagnosis: Secondary ICD Codes: E78.5 - Hyperlipidemia, unspecified (11) Hypertension Diagnosis: Secondary ICD Codes: I10 - Essential (primary) hypertension (12) Lupus Diagnosis: Secondary ICD Codes: L93.0 - Discoid lupus erythematosus (13) Lower leg DVT (deep venous thromboembolism), chronic Diagnosis: Secondary ICD Codes: I82.5Z9 - Chronic embolism and thrombosis of unspecified deep veins of unspecified distal lower extremity (14) Nephrolithiasis Diagnosis: Secondary ICD Codes: N20.0 - Calculus of kidney (15) Peripheral arterial occlusive disease Diagnosis: Secondary ICD Codes: I77.9 - Disorder of arteries and arterioles, unspecified (16) Rheumatoid arthritis Diagnosis: Secondary ICD Codes: M06.9 - Rheumatoid arthritis, unspecified Brief History Per prior charting: This is a 72-year-old female. Name is Raúl Aguirre. Date of admission 07/18/2017. Past medical history includes coronary disease status post stent to the RCA 03/[address] Monique, chronic diastolic heart failure, pulmonary hypertension likely type III, ongoing tobaccoism with COPD, history of lower extremity DVTs, peripheral arterial disease status post stent to the iliac, nephrolithiasis, lupus, depression, chronic warfarin use rheumatoid arthritis, hypertension and dyslipidemia. She presents to [facility] with acute onset at 3 AM of shortness of breath. She had been "feeling tired" for the past several days. denies patient had any anginal type pain, shortness of breath, orthopnea or claudication. Upon EMS arrival, patient was emergently orally intubated using 7.5 ET tube. Of note, patient has chronic wounds to her right ankle retained hardware 15 years ago and a chronic wound on her right thigh from a dermatologic biopsy by senior packaging engineer in [facility]. This was drained by ED physician and has been sent for cultures. No signs of necrotizing fasciitis or spreading erythema at this time Patient was noted be quite hypothermic on admission temperature 90.5. Warming device placed. Chest x-ray admission revealed bilateral infiltrates versus pulmonary edema. Patient received 40 mg IV furosemide and was given 2000 mg cefepime and 500 mg azithromycin along with bronchodilator therapy. CT brain revealed no acute intracranial findings. EEG has normalized. She is currently seen somewhat hypertensive in room E 33. She is arousable on the ventilator but currently not falling commands on a propofol drip. 07/19: Remains intubated lightly sedated. Suspected abscess right upper inner thigh, on US. CT abdomen pelvis -Distended gallbladder containing calcified gallstones with prominent common bile duct and mild central intrahepatic ductal dilatation. Distal CBD stone noted on ultrasound exam is not definitively visualized. Findings concerning for at least partial distal CBD obstruction. 07/20: Extubated 07/20, tolerating well. INR 7, PTT 102 today. Heparin held Coumadin already on hold. CT of R thigh to rule out abscess showed Extensive soft tissue swelling involving the proximal thigh without discrete fluid collection or abscess. I have placed a vascular surgery consult to rule out femoropopliteal graft infection 07/21: Hospitalist consulted to assume care. Patient awake and alert in no acute distress. Patient reports she had sudden onset of SOB 07/18/17 which prompted her to call 911. Patient denies chest pain, weight gain, lower extremity edema, fevers, chills, N/V or change from her normal health status prior to 07/18/17. Patient reports she feels well at this time, offers no specific complaints. Patient had and episode 05/27 where she was admitted with SOB and required BiPap and diuresis. CBC/BMP: 07/25/17 0530 07/24/17 0545 Significant Findings Laboratory Tests Test 07/23/17 06:52 07/24/17 05:45 07/24/17 10:40 07/25/17 05:30 White Blood Count 11.9 TH/MM3 (4.0-11.0) 11.5 TH/MM3 (4.0-11.0) Red Blood Count 3.95 MIL/MM3 (4.00-5.30) Mean Platelet Volume 6.8 FL (7.0-11.0) Neutrophils (%) (Auto) 78.3 % (16.0-70.0) 82.8 % (16.0-70.0) Monocytes (%) (Auto) 10.4 % (0.0-8.0) 8.7 % (0.0-8.0) Neutrophils # (Auto) 9.3 TH/MM3 (1.8-7.7) 8.5 TH/MM3 (1.8-7.7) Monocytes # (Auto) 1.2 TH/MM3 (0-0.9) Prothrombin Time 18.9 SEC (9.8-11.6) 13.2 SEC (9.8-11.6) Blood Urea Nitrogen 49 MG/DL (7-18) Creatinine 1.44 MG/DL (0.50-1.00) 1.45 MG/DL (0.50-1.00) Total Protein 5.9 GM/DL (6.4-8.2) Albumin 2.6 GM/DL (3.4-5.0) Calcium Level 7.9 MG/DL (8.5-10.1) Chloride Level 115 MEQ/L (98-107) Carbon Dioxide Level 16.8 MEQ/L (21.0-32.0) Estimat Glomerular Filtration Rate 36 ML/MIN (>89) 35 ML/MIN (>89) Lipase 4684 U/L (73-393) 752 U/L (73-393) 1472 U/L (73-393) Lymphocytes (%) (Auto) 8.3 % (9.0-44.0) Lymphocytes # (Auto) 0.9 TH/MM3 (1.0-4.8) Test 07/25/17 11:10 Prothrombin Time 13.2 SEC (9.8-11.6) PE at Discharge GENERAL: THIN, frail, NAD CARDIOVASCULAR: Regular rate and rhythm without murmurs, gallops, or rubs. RESPIRATORY: Clear to auscultation. Breath sounds equal bilaterally. No wheezes , rales, or rhonchi. GASTROINTESTINAL: Abdomen soft, non-tender, nondistended. No hepato-splenomegaly , or palpable masses. No guarding. MUSCULOSKELETAL: skin changes at feet and ankles c/w PVD. Pt has chronic non- healing wound at right medial malleolus without indurating or purulent discharge , smaller wound at lateral aspect of the right ankle wound at right groin appears to be healing well. NEUROLOGICAL: Awake and alert. No focal deficits. Motor and sensory grossly within normal limits. Five out of 5 muscle strength in all muscle groups. Normal speech. Hospital Course (1) Acute hypoxemic respiratory failure ICD Codes: J96.01 - Acute respiratory failure with hypoxia Plan: Acute hypoxic respiratory failure 50 year tobacco history - Pt was successfully Extubated 07/19, pt is stable on RA - duonebs q6H WA & q2H prn - Budesonide aerosols 0.5/2 1 inhalation twice a day - NO infectious etiology to pt's admission has been identified - More likely that pt's decline was d/t her chronic cardiac and pulmonary disease - Pt is at high risk of recurrent respiratory failure, and I have explained this to pt and . - Appreciate input from Palliative Medicine. Hospice would be appropriate, but pt/ are NOT interested at this time - d/t generalized weakness SNF would be appropriate at the end of current hospitalization. Pt/ NOT interested at SNF at this time. - pt c/o occasional episode of hemoptysis - obtain sputum gram stain and culture --> pending - 07/24/17 - today pt c/o daily episodes of hemoptysis which she attributes to nose bleeds - I would like to obtain CT chest, but pt declines. - Pt tells me that she does NOT want further hospitalization and demands prompt discharge 07/25/17 - Pt will NOT go to SNF - Pt request that I arrange C and home PT - I feel that pt does require further hospitalization, probably for another 2-3 days, but pt is NOT confused and I will abide by her wishes. - Pt is at high risk for repeat admission, worsening of both her acute & chronic illness, and . All of this has been explained to Ms. Aguirre, but she insists on prompt discharge to home. - Pt is NOT interested in hospice at this time. Coronary artery disease status post stent RCA 03/27 Dr. Monique Pulmonary edema Peripheral arterial disease status post lower extremity stenting Hypertension Dyslipidemia Pulmonary hypertension likely type III Hypothermia EKG on admission revealed normal sinus rhythm 80. IVCD with a QRS [address] elevation. Troponin 0.03. 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 No regional wall motion abnormality Metoprolol 50 mg twice a day for hypertension Lasix 40 mg iv X1 07/19 Holding amlodipine 5 mill grams daily and lisinopril 5 mill grams daily. Resume when clinically indicated Resumed atorvastatin 20 mg daily for dyslipidemia Resumed aspirin 81 mg daily and clopidogrel 75 mg daily for stent. Vascular surgery consult Dr. Heart does not feel the Fem Pop bypass is infected. CT R thigh with contrast did not show any abscess. Cholelithiasis Pancreatitis MRCP: Cholelithiasis without evidence of common duct stone. Dilatation and irregularity of the pancreatic duct characteristic of chronic pancreatitis Clear liquid diet. Appreciate GI consult signed off. General surgery also consulted do not feel surgery is indicated at this time- rec F/U as outpatient- also signed off Lansoprazole for GI prophylaxis CT abdomen and pelvis did not show definite CBD stone but some evidence of partial common bile duct obstruction Docusate sodium/senna 1 tablet twice a day for bowel regimen - Lipase level NOT normalized, but pt is tolerating PO intake & demands discharge today History of RA Lupus? Hydroxychloroquine 200 mg daily for her underlying rheumatologic disorder Acute kidney injury History of nephrolithiasis - improved with IVFs Normocytic anemia Chronic warfarin use History of DVTs bilateral lower extremities Continue aspirin/clopidogrel pre Dr. Monique hgb 7.6 (07/22). Pt received 2 units PRBCs (07/22) - Hg 12.2 (07/23), repeat Hg 07/24 pending no signs of active bleeding, occult stool ordered INR 13.3, vitamin k 5mg PO x 1 - Case d/w Hematology, Dr. Saenz (07/23/17). - will give Lovenox during hospitalization - resume Coumadin at discharge. INR was potentiated by antibiotics and poor PO intake. Probable right thigh cellulitis - Comgmt with ID Receive 1 dose of cefepime/azithromycin in ED. Noted allergy to cephalosporins and previous records has been on levofloxacin, vancomycin, DC aztreonam. Zosyn 4.5 GM IV q6. Blood cultures 2, sputum, urine Legionella and pneumococcal antigens and influenza all negative wound culture positive for MRSA Urine culture growing pleomorphic gram-positive rods - Tagged WBC scan (07/22/17) Does not localize infection in lower extremities. Some minimal uptake in lungs Pt now refusing antibiotics Pt to f/u with Dermatology in 1 week f/u with [facility] wound care clinic in 1 week Pt Condition on Discharge: Stable Discharge Disposition: Disch w/ Home Health Serv Discharge Instructions DIET: Follow Instructions for: Heart Healthy Diet Activities you can perform: Weight Bearing as Gina Activities to Avoid: Strenuous Activity Follow up Referrals: Cardiology - [address] Dk Monique Dermatology - 1 Week with Private Spd Tech PCP Follow-up - [address] [facility]os [facility] - 1 Week with [facility] New Medications: Prednisone (Prednisone) 10 Mg Tab 10 MG PO DIRECTED for steroid taper, #21 TAB 0 Refills take 40 mg daily for 3 days then take 20 mg daily for 3 days then take 10 mg daily for 3 days then stop Nifedipine ER 24 HR (Nifedipine ER 24 HR) 60 Mg Tab 60 MG PO BID for blood pressure, #60 TAB 0 Refills Continued Medications: Aspirin (Aspirin Children's) 81 Mg Chew 81 MG PO DAILY, TAB 0 Refills Atorvastatin (Lipitor) 20 Mg Tab 20 MG PO HS for Cholesterol Management, #30 TAB 0 Refills Budesonide-Formoterol Inh (Symbicort Inh) 160-4.5 Mcg/Act Aero 1 PUFF INH Q12HR, #1 INHALER 0 Refills Cholecalciferol (Vitamin D3) 1,000 Unit Cap Unknown Dose PO DAILY for Nutritional Supplement, #1 BOTTLE 0 Refills Clopidogrel (Plavix) 75 Mg Tab 75 MG PO DAILY for Blood Clot Prevention, #30 TAB 0 Refills Ferrous Sulfate (Iron) 18 Mg Tab 65 MG PO DAILY Hydroxychloroquine (Plaquenil) 200 Mg Tab 200 MG PO DAILY, #30 TAB 0 Refills Take with food Metoprolol Tartrate (Lopressor) 50 Mg Tab 50 MG PO BID, #60 TAB 0 Refills Sertraline (Sertraline) 50 Mg Tab 50 MG PO DAILY, #30 TAB 0 Refills Warfarin (Coumadin) 5 Mg Tab 5 MG PO DAILY for Blood Clot Prevention, #30 TAB 0 Refills Discontinued Medications: Lisinopril (Lisinopril) 5 Mg Tab 5 MG PO DAILY for Blood Pressure Management, #30 TAB 0 Refills Mirtazapine (Mirtazapine) 30 Mg Tab 30 MG PO HS for Depression Control, #30 TAB 0 Refills Cristobal Larose DO Jul 25, 2017 15:14
[2017-07-25] MEDS ORDERED: WARFARIN SOD 5 MG TAB PO SCH (16:00)
[2017-07-25] MEDS: MIRTAZAPINE 15 MG TAB PO SCH (20:35)
[2017-07-26] VITALS: BP 160/73; PULSE 69; RESP 16; TEMP 98.6; O2SAT 99
[2017-07-26] MEDS: CHLORHEXIDINE GLUCONATE 2 % 1 PACK (2 CLOTHS) TOP SCH (03:04)
[2017-07-26 04:00] VITALS: BP_SYST 140; BP_SYST 165; BP_DIAS 65; BP_DIAS 72; PULSE 70; RESP 16; TEMP 97.9; O2SAT 96
[2017-07-26] MEDS: INSULIN NovoLIN REGULAR SUPPLEMENTAL SCALE SQ SCH (05:11)
[2017-07-26 07:54] LABS: INTERNATIONAL NORMALIZED RATIO 1.2 RATIO; PROTHROMBIN TIME - PATIENT 12.9 SEC (9.8-11.6)
[2017-07-26 08:00] VITALS: BP 161/72; PULSE 75; RESP 18; TEMP 97.7; O2SAT 98
[2017-07-26] MEDS: RESP: BUDESONIDE 0.5 MG/2 ML NEB NEB SCH (08:00)
[2017-07-26] MEDS: RESP: ALBUTEROL 2.5 MG/IPRATROPIUM 0.5 MG NEB (SCH) NEB (08:00)
[2017-07-26] MEDS: CHLORHEXIDINE 0.12% (ORAL KIT) 15 ML CUP MT SCH (08:00)
[2017-07-26] MEDS: METOPROLOL TARTRATE 50 MG TAB PO SCH (08:54)
[2017-07-26] MEDS: ASPIRIN 81 MG CHEW TAB CHEW SCH (08:54)
[2017-07-26] MEDS: CLOPIDOGREL 75 MG TAB PO SCH (08:54)
[2017-07-26] MEDS: NIFEdipine 60 MG SUSTAINED RELEASE TAB PO SCH (08:54)
[2017-07-26] MEDS: FERROUS SULFATE 325 MG (65 MG ELEMENTAL IRON) TAB PO SCH (08:55)
[2017-07-26] MEDS: LANSOPRAZOLE SOLUTAB 30 MG TAB G-TUBE SCH (08:55)
[2017-07-26] MEDS: DOCUSATE SODIUM 50 MG/SENNA 8.6 MG TAB PO SCH (08:55)
[2017-07-26] MEDS: methylPREDNISolone SOD SUCC 40 MG/1 ML VIAL IV PUSH SCH (08:55)
[2017-07-26] MEDS: SODIUM CHLORIDE 0.9% FLUSH 10 ML FLUSH IV FLUSH SCH (08:56)
[2017-07-26] MEDS: HYDROXYCHLOROQUINE SULFATE 200 MG TAB PO SCH (09:00)
[2017-07-26] MEDS: SERTRALINE HCL 50 MG TAB PO SCH (09:01)
[2017-07-26] MEDS: COLLAGENASE OINT 30 GM TUBE TOPICAL SCH (09:03)
[2017-07-26] MEDS: ATORVASTATIN 20 MG TAB PO SCH (09:04)
[2017-07-26] MEDS: ARTIFICIAL TEARS OPTH SOLN 15 ML BTL EACH EYE SCH (09:05)
--- NOTE | 2017-07-26 10:15 | PD.VS.PN ---
Subjective Subjective/Hospital Course Pt alert w/o complaints Reported she is going home today Objective Vitals/I&O Date Time Temp Pulse Resp B/P (MAP) Pulse Ox O2 Delivery O2 Flow Rate FiO2 07/26/17 09:07 Room Air 07/26/17 08:00 97.7 75 18 161/72 (101) 98 07/26/17 04:00 97.9 70 16 165/72 (103) 96 140/65 (90) 07/26/17 04:00 Room Air 07/26/17 01:31 17 07/26/17 00:00 Room Air 07/26/17 00:00 98.6 69 16 160/73 (102) 99 07/25/17 20:45 Room Air 07/25/17 20:00 99.1 91 16 148/67 (94) 99 07/25/17 17:16 Room Air 07/25/17 16:00 98.7 80 18 126/62 (83) 97 07/25/17 12:02 Room Air 07/25/17 12:00 97.0 73 18 118/54 (75) 97 07/26/17 07/26/17 07/26/17 07:00 15:00 23:00 Intake Total 360 ml Output Total 1020 ml Balance -660 ml Physical Exam GENERAL: A&OX3,NAD,GCS15 Vascular: Palpable R/L femoral pulses Non palpable L/R DP/PT Chronic wound to Right thigh with dry scab (nickel size) Right foot ulcerations medial/lateral aspect LE warm with motor intact Laboratory Laboratory Tests Test 07/25/17 11:10 07/26/17 06:00 Prothrombin Time 13.2 12.9 Prothromb Time International Ratio 1.2 1.2 Creatinine 1.55 Estimat Glomerular Filtration Rate 33 Date/Time Source Procedure Growth Status 07/18/17 03:30 Blood Peripheral Aerobic Blood Culture - Final NO GROWTH IN 5 DAYS Complete 07/18/17 03:30 Blood Peripheral Anaerobic Blood Culture - Final NO GROWTH IN 5 DAYS Complete 07/18/17 07:20 Nasal Aspirate Influenza Types A,B Antigen (MIRIAN) - Final NEGATIVE FOR FLU A AND B ANTIGEN.... Complete 07/18/17 18:00 Urine Catheterized Urine Legionella Antigen - Final PRESUMPTIVE NEGATIVE FOR LEGIONELLA P... Complete 07/18/17 18:00 Urine Catheterized Urine Streptococcus pneumoniae Antigen (M - Final PRESUMPTIVE NEGATIVE FOR STREPTOCOCCU... Complete 07/18/17 03:30 Wound Leg Gram Stain - Final Complete 07/18/17 03:30 Wound Culture - Final S. Aureus Mrsa Complete Assessment and Plan Assessment: (1) PAD (peripheral artery disease) Status: Chronic (2) Wounds, multiple open, lower extremity Status: Acute (3) COPD (chronic obstructive pulmonary disease) Status: Chronic Plan Mrs Aguirre is a 72/F with a Hx of PAD and what appears to be an occluded R LE bypass with stable R LE wounds Plan Discussed with patient potential out patient R LE angiogram for evaluation of revascularization Pt agrees w/ plan Arranged for out patient f/u next week Continue CV risk factor modification (anticoagulation/statin therapy) Farzana AQUINO [facility] [phone] Discharge Planning Arranged OP F/U Problem Qualifiers (1) Wounds, multiple open, lower extremity: Qualified Codes: S81.801D - Unspecified open wound, right lower leg, subsequent encounter (2) COPD (chronic obstructive pulmonary disease): Qualified Codes: J44.9 - Chronic obstructive pulmonary disease, unspecified Farzana Gallegos Jul 26, 2017 10:15
--- NOTE | 2017-07-26 10:24 | PD.ONC.PN ---
Subjective Subjective Remarks Afebrile overnight. Patient resting in room. She is eager and ready to go home. No complaints. Objective Data Date Time Temp Pulse Resp B/P (MAP) Pulse Ox O2 Delivery O2 Flow Rate FiO2 07/26/17 09:07 Room Air 07/26/17 08:00 97.7 75 18 161/72 (101) 98 07/26/17 04:00 97.9 70 16 165/72 (103) 96 140/65 (90) 07/26/17 04:00 Room Air 07/26/17 01:31 17 07/26/17 00:00 Room Air 07/26/17 00:00 98.6 69 16 160/73 (102) 99 07/25/17 20:45 Room Air 07/25/17 20:00 99.1 91 16 148/67 (94) 99 07/25/17 17:16 Room Air 07/25/17 16:00 98.7 80 18 126/62 (83) 97 07/25/17 12:02 Room Air 07/25/17 12:00 97.0 73 18 118/54 (75) 97 07/26/17 07/26/17 07/26/17 07:00 15:00 23:00 Intake Total 360 ml Output Total 1020 ml Balance -660 ml Result Diagram: 07/25/17 0530 07/26/17 0600 Laboratory Results Laboratory Tests Test 07/25/17 11:10 07/26/17 06:00 Prothrombin Time 13.2 SEC 12.9 SEC Prothromb Time International Ratio 1.2 RATIO 1.2 RATIO Creatinine 1.55 MG/DL Estimat Glomerular Filtration Rate 33 ML/MIN Administered Medications Medications (Trade) Dose Ordered Sig/Sarah Route PRN Reason Start Time Stop Time Status Last Admin Dose Admin Sodium Chloride (NS Flush) 2 ml UNSCH PRN IV FLUSH FLUSH AFTER USING IV ACCESS 07/18/17 07:00 07/23/17 21:21 Sodium Chloride (NS Flush) 2 ml BID IV FLUSH 07/18/17 09:00 07/26/17 08:56 Lansoprazole (Prevacid Odt) 30 mg DAILY G-TUBE 07/18/17 09:00 07/26/17 08:55 Artificial Tears (Tears Naturale Opth Soln) 1 drop TID EACH EYE 07/18/17 09:00 07/26/17 09:05 Chlorhexidine Gluconate (Chlorhexidine 2% Cloth) Taper DAILY@04 TOP 07/19/17 04:00 07/15/18 03:59 07/23/17 04:00 Senna/Docusate Sodium (Juana-Colace) 1 tab BID PO 07/18/17 09:00 07/26/17 08:55 Chlorhexidine Gluconate (Peridex 0.12% Liq) 15 ml BID@08,20 MT 07/18/17 08:00 07/19/17 09:56 Aspirin (Aspirin Chew) 81 mg DAILY CHEW 07/18/17 09:00 07/26/17 08:54 Clopidogrel Bisulfate (Plavix) 75 mg DAILY PO 07/18/17 09:00 07/26/17 08:54 Hydroxychloroquine Sulfate (Plaquenil) 200 mg DAILY PO 07/18/17 09:00 07/26/17 09:00 Atorvastatin Calcium (Lipitor) 20 mg DAILY PO 07/18/17 09:00 07/26/17 09:04 Mirtazapine (Remeron) 15 mg HS PO 07/18/17 21:00 07/25/17 20:35 Sertraline HCl (Zoloft) 50 mg DAILY PO 07/18/17 09:00 07/26/17 09:01 Budesonide (Pulmicort Respule Neb) 0.5 mg Q12HR NEB NEB 07/18/17 08:00 07/22/17 09:11 Insulin Human Regular (NovoLIN R SUPPLEMENTAL SCALE) 1 Q6HR SQ 07/18/17 12:00 07/25/17 12:20 Metoprolol Tartrate (Lopressor) 50 mg BID PO 07/18/17 09:00 07/26/17 08:54 Ferrous Sulfate (Ferrous Sulfate) 325 mg DAILY PO 07/18/17 09:00 07/26/17 08:55 Hydralazine HCl (Apresoline Inj) 10 mg Q1H PRN IV PUSH SBP>160, DBP>90 07/18/17 14:15 07/24/17 09:35 Acetaminophen/ Hydrocodone Bitart ([place] 5-325 Mg) 1 tab Q6H PRN PO PAIN 3-7/10 07/19/17 21:30 07/25/17 23:27 Acetaminophen/ Hydrocodone Bitart ([place] 5-325 Mg) 2 tab Q6H PRN PO PAIN 8-07/2007/20/17 00:44 07/24/17 02:58 Collagenase (Santyl Oint) 1 applic DAILY TOPICAL 07/21/17 17:00 07/26/17 09:03 Sodium Chloride (Donley Armando [place]) 2 spray Q4H PRN EACH NARE NASAL CONGESTION 07/22/17 18:15 07/23/17 01:32 Enoxaparin Sodium (Lovenox Inj) 30 mg Q24H SQ 07/23/17 10:45 07/25/17 10:20 Albuterol/ Ipratropium (Duoneb Neb) 1 ampule Q6HR WHILE AWAKE NEB NEB 07/23/17 14:00 07/23/17 13:16 Nifedipine (Procardia Xl) 60 mg BID PO 07/24/17 09:00 07/26/17 08:54 Methylprednisolone Sodium Succinate (SoluMEDROL INJ) 40 mg DAILY IV PUSH 07/25/17 09:00 07/26/17 08:55 Warfarin Sodium (Coumadin) 5 mg DAILY@1600 PO 07/25/17 16:00 07/25/17 17:18 Objective Remarks GENERAL: Elderly female sitting up in chair next to bed in [facility]. SKIN: Warm and dry. HEAD: Normocephalic. no bleeding. EYES: No injection or drainage. NECK: Supple, trachea midline. CARDIOVASCULAR: +S1/S2 RESPIRATORY: anterior mendoza clear. GASTROINTESTINAL: Abdomen soft, non-tender, nondistended. EXTREMITIES: No cyanosis. NEUROLOGICAL: awake and alert. normal speech. moving all extremities. Assessment/Plan Problem List: (1) Coagulopathy ICD Codes: D68.9 - Coagulation defect, unspecified Plan: coumadin resumed -- resolved s/p vitamin K -- Still with epistaxis --currently on Lovenox prophylaxis only. Hx/Workup: Has been on Coumadin for the past 8-10 years after she had a right lower extremity DVT. Most recently she also had coronary artery stent placement and was started on Plavix. Her INR has increased from 1.7-11.1. Yesterday her INR was down to 3.9 however today it is back up again to 13.3. She is status post femoropopliteal bypass and right iliac artery stent placement. Assessment 72 y/o female admitted with sepsis; hematology consulted for coagulaopathy Plan 1. follow up with primary physician upon discharge 2. continue coumadin 3. monitor for bleeding. Attending Statement The exam, history, and the medical decision-making described in the above note were completed with the assistance of the mid-level provider. I reviewed and agree with the findings presented. I attest that I had a [id number] encounter with the patient on the same day, and personally performed and documented my assessment and findings in the medical record. Late entry. No CP /SOB. No LE edema. Continue coumadin and f/u with PCP. Caron Monge Jul 26, 2017 10:24 Ethan Saenz MD Jul 26, 2017 14:35
== END 2017-07-26 11:05 | disposition home health service (06) | DRG 189 ==
LOC: NEPC 03:09 → NEDA 05:57 → EDBD 05:57 → HIMN 08:00 → N04A 07-24 22:11
PROVIDERS: ADMIT Hospitalist; ATTEND Hospitalist
PROC: 0T9B70Z Drainage of Bladder with Drainage Device, Via Natural or Artificial Opening (ICD-10-PCS; principal; 2017-07-18)
PROC: 30233K1 Transfusion of Nonautologous Frozen Plasma into Peripheral Vein, Percutaneous Approach (ICD-10-PCS; 2017-07-20)
PROC: 30233N1 Transfusion of Nonautologous Red Blood Cells into Peripheral Vein, Percutaneous Approach (ICD-10-PCS; 2017-07-22)
DX: J96.01 Acute respiratory failure with hypoxia (principal); N17.9 Acute kidney failure, unspecified; J18.9 Pneumonia, unspecified organism; L89.151 Pressure ulcer of sacral region, stage 1; I13.0 Hypertensive heart and chronic kidney disease with heart failure and stage 1 through stage 4 chronic kidney disease, or unspecified chronic kidney disease; K85.90 Acute pancreatitis without necrosis or infection, unspecified; I27.23 Pulmonary hypertension due to lung diseases and hypoxia; I50.32 Chronic diastolic (congestive) heart failure; J44.0 Chronic obstructive pulmonary disease with (acute) lower respiratory infection; E87.1 Hypo-osmolality and hyponatremia; K80.61 Calculus of gallbladder and bile duct with cholecystitis, unspecified, with obstruction; N39.0 Urinary tract infection, site not specified; K86.1 Other chronic pancreatitis; L03.115 Cellulitis of right lower limb; J98.11 Atelectasis; I82.5Z9 Chronic embolism and thrombosis of unspecified deep veins of unspecified distal lower extremity; L89.519 Pressure ulcer of right ankle, unspecified stage; N18.3 Chronic kidney disease, stage 3 (moderate); Z79.01 Long term (current) use of anticoagulants; I25.10 Atherosclerotic heart disease of native coronary artery without angina pectoris; F32.9 Major depressive disorder, single episode, unspecified; E78.5 Hyperlipidemia, unspecified; L93.0 Discoid lupus erythematosus; Z87.442 Personal history of urinary calculi; I73.9 Peripheral vascular disease, unspecified; Z95.5 Presence of coronary angioplasty implant and graft; M06.9 Rheumatoid arthritis, unspecified; R68.0 Hypothermia, not associated with low environmental temperature; Z87.891 Personal history of nicotine dependence; S81.801D Unspecified open wound, right lower leg, subsequent encounter; M35.00 Sjogren syndrome, unspecified; M81.0 Age-related osteoporosis without current pathological fracture; R13.10 Dysphagia, unspecified; Z86.010 Personal history of colon polyps; D63.8 Anemia in other chronic diseases classified elsewhere; H91.90 Unspecified hearing loss, unspecified ear; Z95.820 Peripheral vascular angioplasty status with implants and grafts; K42.9 Umbilical hernia without obstruction or gangrene; N20.0 Calculus of kidney; R04.0 Epistaxis; Z51.5 Encounter for palliative care; Z88.1 Allergy status to other antibiotic agents
CPT/HCPCS: 36430; 36600; 43753; 51702; 70450; 71010; 73630; 73701; 74176; 74183; 76377; 76700; 76882; 76937; 78806; 80053; 80202; 81001; 82140; 82150; 82533; 82550; 82565; 82570; 82805; 82948; 83605; 83690; 83735; 83880; 84100; 84300; 84443; 84484; 85025; 85027; 85384; 85610; 85730; 86403; 86850; 86900; 86901; 86920; 86927; 87040; 87070; 87086; 87147; 87186; 87205; 87449; 87641; 87804; 93005; 93308; 93923; 93970; 93998; 94002; 94003; 94640; 94664; 96365; 96368; 96375; A9569; A9577; J0360; J0456; J0692; J1644; J1650; J1940; J1956; J2920; J3010; J3370; J7030; J7050; J7626; P9016; P9017; Q9963; Q9967